=== PATIENT | female | born 1955 | race Caucasian/White ===

== ENCOUNTER 2020-08-14 07:32 | Outpatient (REF) | payer MEDICARE, SELFPAY ==
--- NOTE | 2020-08-14 07:52 | XR_ITS ---
EXAMINATION: XR SHOULDER, RIGHT CLINICAL INFORMATION: Pain COMPARISON: None TECHNIQUE: Two views of the right shoulder. FINDINGS: Bone alignment is normal. No fracture or dislocation is seen. The glenohumeral joint is normal. There is arthritis at the acromioclavicular joint. Soft tissues are unremarkable. XR/XR shoulder RT min 2V IMPRESSION: Arthritis at the acromioclavicular joint.
[2020-08-14 08:47] LABS: Cholesterol 196 mg/dL; HDL Cholesterol 66 mg/dL; LDL Cholesterol Calculated 111 mg/dl; Triglycerides 96 mg/dL
== END 2020-08-14 07:33 | disposition home or self-care (01) ==
LOC: HO.LAB 07:32
PROVIDERS: PCP Internal Medicine; Visit Provider Orthopaedic Surgery
DX: M75.41 Impingement syndrome of right shoulder (principal); M25.511 Pain in right shoulder; E78.5 Hyperlipidemia, unspecified
CPT/HCPCS: 73030; 80061; 99204

== ENCOUNTER 2020-09-18 11:49 | Outpatient (REF) | payer MEDICARE, SELFPAY ==
[2020-09-18 12:41] LABS: Basophils Absolute Auto 0.1 X10*3/uL (0.0-0.2); Basophils Percent Auto 0.2 % (0-2); Eosinophils Absolute Auto 0.2 X10*3/uL (0.0-0.4); Eosinophils Percent Auto 0.7 % (0-4); Hematocrit 44.3 % (37-47); Hemoglobin 14.4 g/dl (12.0-16.0); Imm Gran Abs Auto 0.03 X10*3/uL (0.00-0.03); Imm Gran Pct Auto 0.1 % (0.0-0.4); MANUAL DIFF FLAG SCAN; Mean Corpuscular HGB Conc 32.5 g/dl (31.0-35.0); Mean Corpuscular Hemoglobin 31.4 pg (27.0-33.0); Mean Corpuscular Volume 96.5 fL (80-98); Mean Platelet Volume 10.5 fL (9.4-12.3); Monocytes Absolute Auto 0.6 X10*3/uL (0.1-1.2); Monocytes Percent Auto 2.5 % (2-11); Neutrophils Absolute Auto 3.8 X10*3/uL (2.0-8.3); Neutrophils Percent Auto 17.5 % (45-73); Platelet Count 225 X10*3/uL (160-400); Red Blood Count 4.59 X10*6/uL (4.20-5.50); Red Cell Distribution Width 12.8 % (11.0-16.0); SCAN SMEAR FLAG 1; White Blood Count 21.9 X10*3/uL (4.8-10.8)
[2020-09-18 12:46] LABS: Lymphocytes Absolute Auto 17.3 X10*3/uL (1.2-4.9)
[2020-09-18 12:57] LABS: Alanine Aminotransferase 43 U/L (0-31); Albumin Level 4.6 g/dL (3.5-5.0); Alkaline Phosphatase 126 U/L (39-117); Anion Gap 13 (12-20); Aspartate Amino Transferase 26 U/L (5-31); Bilirubin Total 0.6 mg/dL (0.0-1.0); Blood Urea Nitrogen 15 mg/dL (9-16); Calcium 9.9 mg/dL (8.4-10.2); Carbon Dioxide 29 mmol/L (22-29); Chloride 102 mmol/L (96-108); Estimated Glomerular Filt Rate > 60; Glucose Random 133 mg/dL (60-115); Lactate Dehydrogenase 217 U/L (122-220); Potassium 3.9 mmol/l (3.3-5.1); Sodium 140 mmol/L (135-145); Total Protein 6.8 g/dL (6.5-8.0)
[2020-09-18 13:25] LABS: SLIDE REVIEW VERIFIED
[2020-09-18 13:28] LABS: Erythrocyte Sedimentation Rate 3 MM/HR (0-20)
[2020-09-18 14:35] LABS: Cholesterol 190 mg/dL; HDL Cholesterol 61 mg/dL; LDL Cholesterol Calculated 83 mg/dl; Triglycerides 230 mg/dL
== END 2020-09-18 11:50 | disposition home or self-care (01) ==
LOC: HO.LAB 11:49
PROVIDERS: PCP Internal Medicine; Visit Provider Internal Medicine Medical Oncology
DX: C91.10 Chronic lymphocytic leukemia of B-cell type not having achieved remission (principal)
CPT/HCPCS: 36415; 80053; 80061; 83615; 85025; 85652

== ENCOUNTER 2020-09-27 16:00 | Outpatient (RCR) | payer MEDICARE, SELFPAY ==
--- NOTE | 2020-08-21 15:10 | MHC.PT.OE ---
[facility] [place] Office [place] Office [place] Office [address] Ariana Centeno [address] [phone] F: [phone] F: [phone] F: [phone] F: [phone] Physical Therapy Evaluation Current Condition Diagnosis: RIGHT SHOULDER IMPINGEMENT Onset Date: 05/19/20 Date of Surgery: N/A Chief Complaint/ Current Level of Function: INSIDEOUS ONSET OF SHOULDER PAIN FROM MEDIAL DELTOID REGION TO MID BICEPS WHICH HAS BEEN PRESENT FOR APPROXIMATELY 3 MONTHS. SYMPTOMS ARE REPORTED VERY BAD IN THE MORNING AND STATES SHE FEELS A NEEDS TO HOLD AND SUPPORT ARM FOR ABOUT 1 HOUR PRIOR TO SYMPTOMS IMPROVING. PAIN IS DESCRIBED 'ACHE', PAIN WORSENS WITH ROTATIONAL TYPE MOVEMENTS AND LIFTING OBJECTS GREATER THAN 5#. NOTES INTERMITTENT P/N NEEDLES IN FINGERS. SHE REPORTS THAT SHE TENDS TO SLEEP ON RIGHT SIDE HABITUALLY. DOES NOT WAKE HER AT NIGHT. SHE RESIDES WITH HER WHO IS ABLE AND WILLING TO ASSIST. 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 Prior Level of Function/Occupation: NO HISTORY OF SIMILIAR SYMPTOMS Diagnostic Imaging: X-Ray [facility] [address] [place] [address] XRay Report Signed Patient: Lenora De Souza AMR#: [id number] : 3Acct:[id number] Age/Sex: 65 / FADM Date: 08/14/20 Loc: HO.LAB Attending Dr: Umu Gonzalez MD Ordering Physician: Umu Gonzalez MD Date of Service: 08/14/20 Procedure(s): XR shoulder RT min 2V Accession Number(s): [id number] cc: Umu Gonzalez MD~ EXAMINATION: XR SHOULDER, RIGHT CLINICAL INFORMATION: Pain COMPARISON: None TECHNIQUE: Two views of the right shoulder. FINDINGS: Bone alignment is normal. No fracture or dislocation is seen. The glenohumeral joint is normal. There is arthritis at the acromioclavicular joint. Soft tissues are unremarkable. XR/XR shoulder RT min 2V IMPRESSION: Arthritis at the acromioclavicular joint. Dictated By:DEBBIE BELLO MD Signed By:<Electronically signed by DEBBIE BELLO MD in OV>08/14/20 9021 DD/ 0752 TD/TT: Nutrition Associate: ANKUR Patient Goals and Expectations: TO 2ND PRESSMAN THE HAL LEON Past Medical History: CHRONIC LYMPHOMA LEFT TEMPORAL ARTERY BIOPSY Medications: IBUPROFEN Precautions/ Contraindications: NONE SPECIFIED Outcome Measure: Pain Pain Score: 7 Pain Scale Used: Numeric (0 - 10) Pain Location/ Description: LATERAL RIGHT SHOULDER Aggravating Factors: LIFTING, REACHING, PUSHING AND PULLING Alleviating Factors: REST, POSITIONING SLIGHTLY AWAY FROM BODY (GH NEUTRAL) Objective Findings Posture: Forward Head Rounded Shoulders Increased Thoracic Kyphosis ANTERIOR HUMERAL HEAD, INCREASED UPPER TRAP COMP Skin & Soft Tissue/ Palpation: TTP DELTOID BURSA TTP SUPROSPINATUS TENDON Gait/ Functional Mobility: DECREASED THORACIC ROTATION,, DECREASED ARM SWING AROM (PROM) Strength Cervical Spine Flexion: Extension: Lateral Flexion: Rotation: Cervical Comments: Flexion: Extension: Lateral Flexion: Rotation: Other: Shoulder Flexion: 0-170 Extension: 0-50 Abduction: 0-160 ER: 0-45 IR: WNLs Apley ER: Apley IR: Comments: Flexion: 4/5 W/ PAIN Extension: 5/5 Abduction: 4/5 W/ PAIN Adduction: NT ER: 4/5 IR: 4/5 Other: SUPRASPINATUS 4/5 WIH PAIN BICEPS/TRICEPS WNLs FOREARM AND HAND WFLs Elbow Flexion: Extension: Pronation: Supination: Comments: Flexion: Extension: Pronation: Supination: Wrist Flexion: Wrist Extension: Other: Lumbar Spine Flexion: Extension: Lateral Flexion: Rotation: Comments: Transverse abdominus: Extensors: Other: Hip Flexion: Extension: Abduction: Adduction: ER: IR: Comment: Flexion: Extension: Abduction: Adduction: ER: IR: Other: Knee Flexion: Extension: Comments: Patella Mobility: Flexion: Extension: Other: Ankle Dorsiflexion: Plantarflexion: Inversion: Eversion: Comments: Dorsiflexion: Plantarflexion: Inversion: Eversion: Comments: Tacho Assessment: Sacroiliac Assessment: Muscle Length: Special Tests: (+) NEERS (+) VALLEJO-KIKO (-) SPEEDS (-) AC COMPRESSION Vitals: BP: HR: O2SAT: RR: Other: Balance: Neurological Screen: Biceps DTR: EQUAL AND INTACT LEATHA Brachioradialis DTR: EQUAL AND INTACT LEATHA Triceps DTR: EQUAL AND INTACT LEATHA Patella DTR: Achilles DTR: Other: Dermatomes: UNREMARKABLE Sensation: EQUAL AND INTACT LEAHTA Myotomes: UNREMARKABLE Patient Education Primary Language Sierra Leonean 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 IMPAIRMENTS INCLUDE DECREASED STRENGTH OF ROTATOR CUFF AND DELTOIDS. DECREASED STRENGTH OF RHOMBOIDS, MID/LOW TRAPS, DECREASED SCAPULOTHORACIC MOBILITY, ALTERED POSTURE AND MUSCULAR LENGTH AND STRENGTH IMBALANCES FOSTERING A PATTERNED MOVEMENT STYLE. FUNCTIONAL LIMITATIONS INCLUDE DECREASED ABILITY TO PERFORM LIFTING GREATER THAN 5#, DECREASED ABILITY TO PERFORM PUSHING/PULLING AND REACHING, DECREASED ABILITY TO PERFORM HIGHER DEMAND HOMEMAKING AND WORK TASKS AND DISRUPTED SLEEP. SHE IS GOOD CANDIDATE FOR SKILLED THERAPY TO ADDRESS IMPAIRMENTS AND FUNCTIONAL LIMITATIONS AND RETURN TO PREVIOUS LEVEL OF FUNCTION. Rehabilitation Potential: Good Plan of Care Frequency and Duration 2X WEEK FOR 6 WEEKS Short Term Goals TO OBTAIN APPROPRIATE SEATED POSTURE TO REDUCE IMPINGEMENT, WITHOUT VERBAL CUING IN 2 WEEKS TO INITIATE HEP AND INDEPENDENT SELF MANAGEMENT OF SYMPTOMS IN 2 WEEKS Child Psychologist Goals TO DEMONSTRATE PLACING OBJECTS ON HIGH SHELF WITHOUT PAIN GREATER THAN 2/10 IN 5 WEEK TO REPORT RETURN TO ALL ADLs AND HOMEMAKING TASKS WITHOUT RESTRICTION IN 5 WEEKS TO REPORT SLEEPING AND AWAKING IN AM WITHOUT PAIN GREATER THAN 2/10 IN 6 WEEKS TO REPORT THE ABILITY TO LIFT AND CARRY GRANDCHILDREN WITHOUT RESTRICTION IN 6 WEEKS Treatment Plan Therapeutic Exercise Dynamic Therapeutic Activities Neuromuscular Re-ed Manual Therapies Joint Mobilization Taping Gait Home Exercise Program Patient Education Electrical Stimulation Iontophoresis Hot or Cold Pack Reviewed/ Agreed with Student Documentation: Therapist: Electronically signed by: WYATT BLAND PT, DPT Please sign and return to therapist. Thank you for your referral.
--- NOTE | 2020-10-23 14:43 | MHC.PT.DC ---
[facility] [place] Office [place] Office [place] Office [address] Ariana Centeno [address] [phone] F: [phone] F: [phone] F: [phone] F: [phone] Physical Therapy Discharge Report Diagnosis: RIGHT SHOULDER IMPINGEMENT Date of Surgery: N/A Date of Evaluation: 08/21/20 Date of Discharge: Treatments to Date: 10 Cancellations to Date: 3 No Shows to Date: 0 Discharge Status: Discharge Summary: Pt HAD BEEN PROGRESSING WELL WITH PT AND INDEPENDENT WITH HOME PROGRAM. SHE PHONED US STATING A CLOSE CONTACT TESTED POSITIVE FOR COVID AND SHE WAS SELF-QUARANTINING. Electronically signed by: WYATT BLAND PT, DPT Please sign and return to therapist. Thank you for your referral.
== END 2020-10-23 14:55 | disposition other institution (70) ==
LOC: HO.PT 16:00
PROVIDERS: Visit Provider Orthopaedic Surgery
DX: M75.41 Impingement syndrome of right shoulder (principal); R42 Dizziness and giddiness
CPT/HCPCS: 95992; 97110; 97140; 97150; 97161; 97530; 97535

== ENCOUNTER → 2020-10-30 14:31 | Outpatient (BNVA) | payer MEDICARE, SELFPAY | PROVIDERS: Visit Provider Orthopaedic Surgery | DX: M75.41 Impingement syndrome of right shoulder (principal) | CPT/HCPCS: 99212 ==

== ENCOUNTER 2020-11-23 06:39 | Outpatient (REF) | payer MEDICARE, SELFPAY ==
[2020-11-23 07:16] LABS: Basophils Absolute Auto 0.1 X10*3/uL (0.0-0.2); Basophils Percent Auto 0.3 % (0-2); Eosinophils Absolute Auto 0.2 X10*3/uL (0.0-0.4); Eosinophils Percent Auto 0.8 % (0-4); Hematocrit 47.1 % (37-47); Hemoglobin 15.2 g/dl (12.0-16.0); Imm Gran Abs Auto 0.04 X10*3/uL (0.00-0.03); Imm Gran Pct Auto 0.2 % (0.0-0.4); Lymphocytes Percent Auto 78.6 % (20-40); MANUAL DIFF FLAG SCAN; Mean Corpuscular HGB Conc 32.3 g/dl (31.0-35.0); Mean Corpuscular Volume 96.1 fL (80-98); Mean Platelet Volume 10.5 fL (9.4-12.3); Monocytes Absolute Auto 0.5 X10*3/uL (0.1-1.2); Monocytes Percent Auto 2.2 % (2-11); Neutrophils Absolute Auto 3.9 X10*3/uL (2.0-8.3); Neutrophils Percent Auto 17.9 % (45-73); Platelet Count 233 X10*3/uL (160-400); Red Cell Distribution Width 12.9 % (11.0-16.0); SCAN SMEAR FLAG 1; White Blood Count 21.9 X10*3/uL (4.8-10.8)
[2020-11-23 07:23] LABS: Lymphocytes Absolute Auto 17.2 X10*3/uL (1.2-4.9)
[2020-11-23 07:40] LABS: Alanine Aminotransferase 52 U/L (0-31); Albumin Level 4.6 g/dL (3.5-5.0); Alkaline Phosphatase 109 U/L (39-117); Anion Gap 14 (12-20); Aspartate Amino Transferase 30 U/L (5-31); Bilirubin Total 0.8 mg/dL (0.0-1.0); Blood Urea Nitrogen 19 mg/dL (9-16); Calcium 10.1 mg/dL (8.4-10.2); Carbon Dioxide 29 mmol/L (22-29); Chloride 102 mmol/L (96-108); Estimated Glomerular Filt Rate > 60; Glucose Random 130 mg/dL (60-115); Potassium 4.6 mmol/L (3.3-5.1); Sodium 140 mmol/L (135-145); Total Protein 6.9 g/dL (6.5-8.0)
[2020-11-23 07:42] LABS: Cholesterol 189 mg/dL; HDL Cholesterol 57 mg/dL; LDL Cholesterol Calculated 104 mg/dl; Triglycerides 144 mg/dL
[2020-11-23 07:43] LABS: SLIDE REVIEW VERIFIED
== END 2020-11-23 06:40 | disposition home or self-care (01) ==
LOC: HO.LAB 06:39
PROVIDERS: PCP Internal Medicine; Visit Provider Internal Medicine Medical Oncology
DX: E11.9 Type 2 diabetes mellitus without complications (principal); C91.10 Chronic lymphocytic leukemia of B-cell type not having achieved remission
CPT/HCPCS: 36415; 80053; 80061; 85025

== ENCOUNTER 2020-11-29 16:09 | Outpatient (REF) | payer MEDICARE, SELFPAY ==
--- NOTE | ~2020-11-29 | MM_ITS ---
EXAMINATION: MM SCREENING DIGITAL BREAST TOMOSYNTHESIS, BILATERAL CLINICAL INFORMATION: Screening. Asymptomatic. The lifetime risk of breast cancer based on the Tyrer-Cuzick Model is 4%. COMPARISON: Mammography: 08/26/2019, 08/19/2018, 08/11/2017 TECHNIQUE: Digital breast tomosynthesis is performed in both the craniocaudal and mediolateral oblique views along with computer-aided detection (CAD). Synthesized 2D images are generated from the tomosynthesis. Additional bilateral MLO views are provided. FINDINGS: There are scattered areas of fibroglandular density (ACR BI-RADS breast composition Category b). There are no significant masses, abnormal calcifications, or other abnormalities. There are scattered bilateral round, vascular, and ductal secretory calcifications again seen. The axilla and skin contours are unremarkable. MM/MM tomosynthesis screening BI IMPRESSION: No mammographic evidence of malignancy. ASSESSMENT: BI-RADS 2: Benign RECOMMENDATION: Routine annual mammography screening. This patient's information was entered into a reminder system with a target due date for their next mammogram.
== END 2020-11-29 16:10 | disposition home or self-care (01) ==
LOC: HO.MAMMO 16:09
PROVIDERS: PCP Internal Medicine; Visit Provider Internal Medicine
DX: Z12.31 Encounter for screening mammogram for malignant neoplasm of breast (principal)
CPT/HCPCS: 77063; 77067

== ENCOUNTER 2021-04-02 06:41 | Outpatient (REF) | payer MEDICARE, SELFPAY ==
[2021-04-02 07:18] LABS: Basophils Percent Auto 0.2 % (0-2); Eosinophils Absolute Auto 0.1 X10*3/uL (0.0-0.4); Eosinophils Percent Auto 0.6 % (0-4); Hematocrit 45.6 % (37-47); Hemoglobin 14.6 g/dl (12.0-16.0); Imm Gran Abs Auto 0.03 X10*3/uL (0.00-0.03); Imm Gran Pct Auto 0.1 % (0.0-0.4); Lymphocytes Absolute Auto 16.6 X10*3/uL (1.2-4.9); Lymphocytes Percent Auto 81.7 % (20-40); MANUAL DIFF FLAG SCAN; Mean Corpuscular Hemoglobin 30.8 pg (27.0-33.0); Mean Corpuscular Volume 96.2 fL (80-98); Mean Platelet Volume 10.3 fL (9.4-12.3); Monocytes Absolute Auto 0.6 X10*3/uL (0.1-1.2); Monocytes Percent Auto 2.8 % (2-11); Neutrophils Percent Auto 14.6 % (45-73); Platelet Count 203 X10*3/uL (160-400); Red Blood Count 4.74 X10*6/uL (4.20-5.50); Red Cell Distribution Width 13.7 % (11.0-16.0); SCAN SMEAR FLAG 1; White Blood Count 20.3 X10*3/uL (4.8-10.8)
[2021-04-02 07:42] LABS: Alanine Aminotransferase 50 U/L (0-31); Albumin Level 4.3 g/dL (3.5-5.0); Alkaline Phosphatase 113 U/L (39-117); Anion Gap 12 (12-20); Aspartate Amino Transferase 30 U/L (5-31); Bilirubin Total 0.8 mg/dL (0.0-1.0); Blood Urea Nitrogen 14 mg/dL (9-16); Calcium 9.9 mg/dL (8.4-10.2); Carbon Dioxide 30 mmol/L (22-29); Chloride 105 mmol/L (96-108); Cholesterol 174 mg/dL; Estimated Glomerular Filt Rate > 60; Glucose Fasting 121 mg/dL (60-99); HDL Cholesterol 53 mg/dL; LDL Cholesterol Calculated 93 mg/dl; Potassium 4.6 mmol/L (3.3-5.1); Sodium 142 mmol/L (135-145); Total Protein 6.3 g/dL (6.5-8.0); Triglycerides 142 mg/dL
[2021-04-02 08:29] LABS: SLIDE REVIEW VERIFIED
== END 2021-04-02 06:42 | disposition home or self-care (01) ==
LOC: HO.LAB 06:41
PROVIDERS: Absent Provider Internal Medicine; PCP Internal Medicine; Visit Provider Internal Medicine Medical Oncology
DX: C91.10 Chronic lymphocytic leukemia of B-cell type not having achieved remission (principal); E78.5 Hyperlipidemia, unspecified
CPT/HCPCS: 36415; 80053; 80061; 85025

== ENCOUNTER → 2021-05-23 14:54 | Outpatient (REF) | payer MEDICARE, SELFPAY ==
--- NOTE | 2021-05-23 15:07 | CA_ITS ---
Transthoracic Echocardiogram Patient (Last, First, Middle): Lenora De Souza A Gender: Female Date of : 1955 Age: 66 Procedure Date: 05/23/2021 Procedure Type: Transthoracic Echocardiogram Location: OP Height: 157.48 cm Weight: 72.12 kg BSA: 1.73 m2 Heart Rate: bpm BP: 130 / 85 mmHg Mechanical Design Engineer Products: [id number] Referring MD: Kathleen Hollis PRODUCT BLENDING SUPERVISOR Symptoms: I45.10 - Unspecified right bundle-branch block Study Quality: Fair ECG Rhythm: Sinus Conclusions: - The left ventricular systolic function is normal. The visually estimated ejection fraction is between 65-70%. - No obvious valvular pathology seen on this study. Findings Left Ventricle Normal left ventricular cavity size. There is normal left ventricular wall thickness. The left ventricular systolic function is normal. The visually estimated ejection fraction is between 65-70%. There is no evidence of regional wall motion abnormalities. Diastolic function is normal for age. Right Ventricle Normal right ventricular cavity size and systolic function. Atria Both atria are normal in size. Aortic Valve There is a normal trileaflet aortic valve. There is no aortic valve stenosis. There is trace (trivial) aortic valve regurgitation. Mitral Valve The mitral valve appears normal. There is trace mitral valve regurgitation. There is no mitral valve stenosis. Pulmonic Valve The pulmonic valve was not well visualized. Tricuspid Valve Normal tricuspid valve structure. There is trace tricuspid valve regurgitation. The pulmonary artery systolic pressure is normal. Great Vessels The asc aorta is normal in size. Venous The inferior vena cava is normal in size and collapses greater than 50% with inspiration. Pericardium/Pleural There is no evidence of pericardial effusion. Prior Study Comparison No prior study available for comparison. Recommendations, Care & Conclusions No obvious valvular pathology seen on this study. Measurements 2D Linear Measurements IVSd: 0.98 0.6-0.9/0.6-1.0 cm LVIDd: 4.10 3.9-5.3/4.2-5.9 cm LVIDd Index: 2.37 2.4-3.2/2.2-3.1 cm/m2 LVIDs: 2.35 2.0-3.6 cm LVPWd: 0.99 0.7-1.1 cm Ao Root: 3.30 2.1-3.5 cm LA Diam: 3.50 2.7-3.8/3.0-4.0 cm LAIDs Index: 2.02 1.5-2.3 cm/m2 LV Mass: 160.80 67-162/88-224 g LV Mass Index: 92.95 43-95/49-115 g/m2 LVOT Diam: 2.00 3.0+(-)1.3 cm 2D Systolic Function EF 4C: 57.30 >55% EF 2C: 70.50 >55% EF BiP: 63.90 >55% Mitral Valve MV Pk E: 0.52 MV PK A: 0.89 MV Decel Time: 249.00 E/A: 0.60 E'Lateral: 5.11 E'Medial: 4.57 E/E' Med: 11.40 E/E' Lat: 10.20 PHT: 73.00 MVA PHT: 3.01 Decel [place]: 2.09 Aortic Valve AoV Pk Ryder: 1.26 AoV Mn Ryder: 0.81 AoV VTI: 0.25 AoV Pk Grad: 6.00 Aov Mn Grad: 3.00 SELMA Cont.VTI: 2.85 LVOT LVOT Pk Ryder: 1.04 LVOT Mn Ryder: 0.66 LVOT VTI: 0.22 LVOT Pk Grad: 4.00 LVOT Mn Grad: 2.00 LVOT Diam: 2.00 LVOT Area: 3.14 Diastolic Function MV Pk E: 0.52 MV Pk A: 0.89 E/A: 0.60 E'Medial: 4.57 E/E' Med: 11.40 E' Laterial: 5.11 E/E' Lat: 10.20 Tricuspid Valve TR Pk Ryder: 2.02 TR Pk Grad: 16.00 Great Vessels Aorta Ao Root-2D: 3.30 2.0-3.7 cm Ao Asc: 3.20 2.1-3.4 cm Ao Arch: 2.40 Updated in Other Vendor System with Status of Final Reji Vizcarra MD electronically signed on 05/23/2021 4:29:33 PM with status of Final
== END ==
LOC: HO.CARD 14:54
PROVIDERS: Visit Provider Nurse Practitioner Family
DX: I45.10 Unspecified right bundle-branch block (principal)
CPT/HCPCS: 93306

== ENCOUNTER 2021-07-09 06:58 | Outpatient (REF) | payer MEDICARE, SELFPAY ==
[2021-07-09 09:19] LABS: Vitamin D 25-OH Total 42.3 ng/mL (>30)
== END 2021-07-09 06:59 | disposition home or self-care (01) ==
LOC: HO.LAB 06:58
PROVIDERS: Nurse Practitioner Family; PCP Internal Medicine; Visit Provider Internal Medicine Medical Oncology
DX: C91.10 Chronic lymphocytic leukemia of B-cell type not having achieved remission (principal); E66.9 Obesity, unspecified; I10 Essential (primary) hypertension
CPT/HCPCS: 36415; 82306; 84443

== ENCOUNTER 2021-07-12 06:38 | Outpatient (REF) | payer MEDICARE, SELFPAY ==
[2021-07-12 07:59] LABS: Basophils Absolute Auto 0.1 X10*3/uL (0.0-0.2); Basophils Percent Auto 0.2 % (0-2); Eosinophils Absolute Auto 0.2 X10*3/uL (0.0-0.4); Eosinophils Percent Auto 0.9 % (0-4); Hemoglobin 14.7 g/dl (12.0-16.0); Imm Gran Abs Auto 0.03 X10*3/uL (0.00-0.03); Imm Gran Pct Auto 0.1 % (0.0-0.4); Lymphocytes Percent Auto 79.1 % (20-40); MANUAL DIFF FLAG SCAN; Mean Corpuscular Hemoglobin 31.3 pg (27.0-33.0); Mean Corpuscular Volume 97.9 fL (80-98); Monocytes Absolute Auto 0.6 X10*3/uL (0.1-1.2); Monocytes Percent Auto 2.8 % (2-11); Neutrophils Absolute Auto 3.6 X10*3/uL (2.0-8.3); Neutrophils Percent Auto 16.9 % (45-73); Platelet Count 227 X10*3/uL (160-400); Red Cell Distribution Width 13.4 % (11.0-16.0); SCAN SMEAR FLAG 1; White Blood Count 21.5 X10*3/uL (4.8-10.8)
[2021-07-12 08:48] LABS: SLIDE REVIEW VERIFIED
== END 2021-07-12 06:39 | disposition home or self-care (01) ==
LOC: HO.LAB 06:38
PROVIDERS: PCP Internal Medicine; Visit Provider Internal Medicine Medical Oncology
DX: C91.10 Chronic lymphocytic leukemia of B-cell type not having achieved remission (principal)
CPT/HCPCS: 36415; 85025

== ENCOUNTER 2021-10-15 07:09 | Outpatient (REF) | payer MEDICARE, SELFPAY ==
[2021-10-15 08:07] LABS: Basophils Percent Auto 0.2 % (0-2); Eosinophils Absolute Auto 0.2 X10*3/uL (0.0-0.4); Eosinophils Percent Auto 0.9 % (0-4); Hematocrit 46.7 % (37.0-47.0); Imm Gran Abs Auto 0.02 X10*3/uL (0.00-0.03); Imm Gran Pct Auto 0.1 % (0.0-0.4); Lymphocytes Percent Auto 81.2 % (20-40); MANUAL DIFF FLAG SCAN; Mean Corpuscular HGB Conc 32.1 g/dl (31.0-35.0); Mean Corpuscular Hemoglobin 31.1 pg (27.0-33.0); Mean Corpuscular Volume 96.7 fL (80.0-98.0); Mean Platelet Volume 10.6 fL (9.4-12.3); Monocytes Absolute Auto 0.5 X10*3/uL (0.1-1.2); Monocytes Percent Auto 2.4 % (2-11); Neutrophils Percent Auto 15.2 % (45-73); Platelet Count 211 X10*3/uL (160-400); Red Blood Count 4.83 X10*6/uL (4.20-5.50); Red Cell Distribution Width 13.2 % (11.0-16.0); SCAN SMEAR FLAG 1
[2021-10-15 08:08] LABS: Lymphocytes Absolute Auto 16.2 X10*3/uL (1.2-4.9)
[2021-10-15 08:32] LABS: Alanine Aminotransferase 55 U/L (0-31); Albumin Level 4.3 g/dL (3.5-5.0); Alkaline Phosphatase 105 U/L (39-117); Anion Gap 10 (12-20); Aspartate Amino Transferase 33 U/L (5-31); Bilirubin Total 0.7 mg/dL (0.0-1.0); Blood Urea Nitrogen 14 mg/dL (9-16); Calcium 10.1 mg/dL (8.4-10.2); Carbon Dioxide 30 mmol/L (22-29); Chloride 107 mmol/L (96-108); Cholesterol 196 mg/dL; Estimated Glomerular Filt Rate > 60; Glucose Fasting 125 mg/dL (60-99); HDL Cholesterol 54 mg/dL; LDL Cholesterol Calculated 110 mg/dl; Lactate Dehydrogenase 222 U/L (122-220); Potassium 4.7 mmol/L (3.3-5.1); Sodium 142 mmol/L (135-145); Total Protein 6.5 g/dL (6.5-8.0); Triglycerides 161 mg/dL
[2021-10-15 08:50] LABS: SLIDE REVIEW VERIFIED
== END 2021-10-15 07:10 | disposition home or self-care (01) ==
LOC: HO.LAB 07:09
PROVIDERS: PCP Internal Medicine; Visit Provider Internal Medicine Medical Oncology
DX: C91.10 Chronic lymphocytic leukemia of B-cell type not having achieved remission (principal); I10 Essential (primary) hypertension; E11.9 Type 2 diabetes mellitus without complications
CPT/HCPCS: 36415; 80053; 80061; 83615; 85025

== ENCOUNTER 2021-12-03 14:53 | Outpatient (REF) | payer MEDICARE, SELFPAY ==
--- NOTE | ~2021-12-03 | MM_ITS ---
EXAMINATION: MM SCREENING DIGITAL BREAST TOMOSYNTHESIS, BILATERAL CLINICAL INFORMATION: Screening. Asymptomatic. The lifetime risk of breast cancer based on the Tyrer-Cuzick Model is 4%. COMPARISON: Mammography: 11/29/2020, 08/26/2019, 08/19/2018 TECHNIQUE: Digital breast tomosynthesis is performed in both the craniocaudal and mediolateral oblique views along with computer-aided detection (CAD). Synthesized 2D images are generated from the tomosynthesis. Additional right MLO view is provided. FINDINGS: There are scattered areas of fibroglandular density (ACR BI-RADS breast composition Category b). There are no significant masses, abnormal calcifications, or other abnormalities. Parenchymal pattern is similar to prior studies. There is no developing density or architectural abnormality. The axilla and skin contours are unremarkable. No significant changes. MM/MM tomosynthesis screening BI IMPRESSION: No mammographic evidence of malignancy. ASSESSMENT: BI-RADS 1: Negative RECOMMENDATION: Routine annual mammography screening. This patient's information was entered into a reminder system with a target due date for their next mammogram.
--- NOTE | ~2021-12-03 | MM_ITS ---
EXAMINATION: BONE DENSITOMETRY CLINICAL INDICATION: Asymptomatic menopausal state. COMPARISON: This is the patient's baseline examination. TECHNIQUE: Using a Philo DXA System (software version: 13.1) manufactured by [email or web address], dual-energy x-ray absorptiometry was performed of the lumbar spine and left hip. The images are of good technical quality. Summary results are attached. FINDINGS: AP SPINE L1-L4: BMD 0.850 g/cm2, Z-score -1.4, T-score -2.7, osteoporosis. LEFT FEMUR, NECK: BMD 0.790 g/cm2, Z-score -0.3, T-score -1.8, osteopenia. LEFT FEMUR, TOTAL: BMD 0.873 g/cm2, Z-score 0.1, T-score -1.1, osteopenia. IDENTIFIED RISK FACTORS: Menopause, thiazide. HISTORY OF FRACTURE: None listed. MEDICATIONS: Calcium supplements or multivitamin, vitamin D. MM/XR DEXA axial skeleton IMPRESSION: 1. DIAGNOSIS: Osteoporosis based on the lowest T-score value of -2.7 in the lumbar spine applying World Health Organization criteria. 2. 10-YEAR FRACTURE RISK PREDICTION, FRAX: According to the guidelines, FRAX calculation should only be performed on patients in the osteopenia bone density category. Therefore, FRAX was not performed on this patient. 3. Treatment Recommendations: NOF guidelines recommend consideration for treatment in postmenopausal women and men age 50 and older presenting with the following: -A hip or vertebral (clinical or morphometric) fracture. -T-score less than or equal to -2.5 at the femoral neck or spine after appropriate evaluation to exclude secondary causes. -Low bone mass at the hip or spine and a 10-year fracture probability by FRAX of greater than or equal to 3% for hip fracture or greater than or equal to 20% for major osteoporotic fracture based on the [place] adapted WHO algorithm. 4. Other Recommendations: All treatment decisions require clinical judgment and consideration of individual patient factors, including patient preferences, comorbidities, previous drug use, risk factors not captured in the FRAX model (e.g. frailty, falls, vitamin D deficiency, increased bone turnover, interval significant decline in bone density) and possible under or overestimation of fracture risk by FRAX. Additional medical evaluation for secondary cause of low bone mineral density may be appropriate. FUTURE SCAN RECOMMENDATION: People with diagnosed cases of osteoporosis or at high risk for fracture should have regular bone mineral density tests. For patients eligible for Medicare, routine testing is allowed once every 2 years. The testing frequency can be increased to one year for patients who have rapidly progressing disease, those who are receiving or discontinuing medical therapy to restore bone mass, or have additional risk factors.
== END 2021-12-03 14:54 | disposition home or self-care (01) ==
LOC: HO.MAMMO 14:53
PROVIDERS: Visit Provider Nurse Practitioner Family
DX: Z12.31 Encounter for screening mammogram for malignant neoplasm of breast (principal); Z13.820 Encounter for screening for osteoporosis; M81.0 Age-related osteoporosis without current pathological fracture; Z78.0 Asymptomatic menopausal state; Z79.899 Other long term (current) drug therapy
CPT/HCPCS: 77063; 77067; 77080

== ENCOUNTER 2022-01-10 07:26 | Outpatient (REF) | payer MEDICARE, SELFPAY ==
[2022-01-10 08:08] LABS: Basophils Absolute Auto 0.1 X10*3/uL (0.0-0.2); Basophils Percent Auto 0.2 % (0-2); Eosinophils Absolute Auto 0.1 X10*3/uL (0.0-0.4); Eosinophils Percent Auto 0.4 % (0-4); Hematocrit 48.2 % (37.0-47.0); Hemoglobin 15.2 g/dl (12.0-16.0); Imm Gran Abs Auto 0.03 X10*3/uL (0.00-0.03); Imm Gran Pct Auto 0.1 % (0.0-0.4); Lymphocytes Absolute Auto 16.9 X10*3/uL (1.2-4.9); Lymphocytes Percent Auto 80.8 % (20-40); MANUAL DIFF FLAG SCAN; Mean Corpuscular HGB Conc 31.5 g/dl (31.0-35.0); Mean Corpuscular Hemoglobin 30.6 pg (27.0-33.0); Mean Corpuscular Volume 97.2 fL (80.0-98.0); Mean Platelet Volume 9.9 fL (9.4-12.3); Monocytes Absolute Auto 0.5 X10*3/uL (0.1-1.2); Monocytes Percent Auto 2.4 % (2-11); Neutrophils Absolute Auto 3.3 x10*3/uL (2.0-8.3); Neutrophils Percent Auto 16.1 % (45-73); Platelet Count 257 X10*3/uL (160-400); Red Blood Count 4.96 X10*6/uL (4.20-5.50); Red Cell Distribution Width 13.2 % (11.0-16.0); SCAN SMEAR FLAG 1
[2022-01-10 08:43] LABS: Lactate Dehydrogenase 243 U/L (122-220)
[2022-01-10 08:45] LABS: Erythrocyte Sedimentation Rate 2 MM/HR (0-20)
[2022-01-10 08:55] LABS: SLIDE REVIEW VERIFIED
== END 2022-01-10 07:27 | disposition home or self-care (01) ==
LOC: HO.LAB 07:26
PROVIDERS: PCP Internal Medicine; Visit Provider Internal Medicine Medical Oncology
DX: C91.10 Chronic lymphocytic leukemia of B-cell type not having achieved remission (principal)
CPT/HCPCS: 36415; 83615; 85025; 85652

== ENCOUNTER 2022-03-18 10:59 | Outpatient (REF) | payer MEDICARE, SELFPAY ==
--- NOTE | ~2022-03-18 | XR_ITS ---
EXAMINATION: XR CHEST CLINICAL INFORMATION: Cough. COMPARISON: 07/22/2018 chest radiograph. TECHNIQUE: 2 views of the chest were obtained. FINDINGS: No significant abnormality is noted involving the heart, lungs, mediastinum, bony thorax or soft tissues. XR/XR chest 2V IMPRESSION: No acute cardiopulmonary process.
== END 2022-03-18 11:00 | disposition home or self-care (01) ==
LOC: HO.HMGCX 10:59
PROVIDERS: Visit Provider Physician Assistant
DX: R05.9 Cough, unspecified (principal)
CPT/HCPCS: 71046

== ENCOUNTER 2022-04-18 07:15 | Outpatient (REF) | payer MEDICARE, SELFPAY ==
[2022-04-18 08:13] LABS: Basophils Percent Auto 0.2 % (0-2); Eosinophils Absolute Auto 0.1 X10*3/uL (0.0-0.4); Eosinophils Percent Auto 0.5 % (0-4); Hematocrit 45.4 % (37.0-47.0); Hemoglobin 14.9 g/dl (12.0-16.0); Imm Gran Abs Auto 0.02 X10*3/uL (0.00-0.03); Imm Gran Pct Auto 0.1 % (0.0-0.4); Lymphocytes Percent Auto 84.9 % (20-40); MANUAL DIFF FLAG SCAN; Mean Corpuscular HGB Conc 32.8 g/dl (31.0-35.0); Mean Corpuscular Hemoglobin 31.6 pg (27.0-33.0); Mean Corpuscular Volume 96.4 fL (80.0-98.0); Mean Platelet Volume 10.7 fL (9.4-12.3); Monocytes Absolute Auto 0.5 X10*3/uL (0.1-1.2); Monocytes Percent Auto 2.6 % (2-11); Neutrophils Absolute Auto 2.2 x10*3/uL (2.0-8.3); Neutrophils Percent Auto 11.7 % (45-73); Platelet Count 193 X10*3/uL (160-400); Red Blood Count 4.71 X10*6/uL (4.20-5.50); Red Cell Distribution Width 13.2 % (11.0-16.0); SCAN SMEAR FLAG 1; White Blood Count 18.7 X10*3/uL (4.8-10.8)
[2022-04-18 08:14] LABS: Lymphocytes Absolute Auto 15.8 X10*3/uL (1.2-4.9)
[2022-04-18 08:36] LABS: Alanine Aminotransferase 42 U/L (0-31); Albumin Level 4.5 g/dL (3.5-5.0); Alkaline Phosphatase 102 U/L (39-117); Anion Gap 11 (12-20); Aspartate Amino Transferase 29 U/L (5-31); Bilirubin Total 0.6 mg/dL (0.0-1.0); Blood Urea Nitrogen 21 mg/dL (9-16); Calcium 9.7 mg/dL (8.4-10.2); Carbon Dioxide 27 mmol/L (22-29); Chloride 106 mmol/L (96-108); Cholesterol 163 mg/dL; Estimated Glomerular Filt Rate > 60; Glucose Fasting 120 mg/dL (60-99); HDL Cholesterol 51 mg/dL; LDL Cholesterol Calculated 96 mg/dl; Potassium 4.2 mmol/L (3.3-5.1); Sodium 140 mmol/L (135-145); Total Protein 6.5 g/dL (6.5-8.0); Triglycerides 82 mg/dL
[2022-04-18 08:49] LABS: SLIDE REVIEW VERIFIED
[2022-04-18 09:04] LABS: Estimated Average Glucose 126 mg/dL
[2022-04-18 10:21] LABS: Microalbum/Creatinine Ratio Ur 14.1 ug/mg cr
== END 2022-04-18 07:16 | disposition home or self-care (01) ==
LOC: HO.LAB 07:15
PROVIDERS: PCP Internal Medicine; Visit Provider Internal Medicine Medical Oncology
DX: C91.10 Chronic lymphocytic leukemia of B-cell type not having achieved remission (principal); E78.5 Hyperlipidemia, unspecified; E66.9 Obesity, unspecified; E11.9 Type 2 diabetes mellitus without complications
CPT/HCPCS: 36415; 80053; 80061; 82043; 83036; 85025

== ENCOUNTER → 2022-05-13 14:41 | Outpatient (BNVA) | payer MEDICARE, SELFPAY | PROVIDERS: PCP Internal Medicine; Visit Provider Internal Medicine Endocrinology, Diabetes & Metabolism | DX: M81.0 Age-related osteoporosis without current pathological fracture (principal) | CPT/HCPCS: 99202 ==

== ENCOUNTER 2022-07-25 14:48 | Outpatient (REF) | payer MEDICARE, SELFPAY ==
--- NOTE | ~2022-07-25 | XR_ITS ---
EXAMINATION: XR LUMBOSACRAL SPINE CLINICAL INFORMATION: Dorsalgia COMPARISON: CT abdomen pelvis 07/30/2018 TECHNIQUE: Three views of the lumbosacral spine. FINDINGS: 5 nonrib-bearing lumbar vertebral bodies are visualized. Alignment is within normal limits. Lumbar vertebral body heights and disc spaces are well-maintained. Mild degenerative changes of the posterior elements of the lower lumbar spine. Sacroiliac joints are symmetric. Small calcifications within the pelvis are likely vascular in nature. XR/XR lumbar spine 2-3V IMPRESSION: Mild degenerative changes of the lower lumbar spine.
== END 2022-07-25 14:49 | disposition home or self-care (01) ==
LOC: HO.XRAY 14:48
PROVIDERS: PCP Internal Medicine; Visit Provider Internal Medicine
DX: M54.9 Dorsalgia, unspecified (principal)
CPT/HCPCS: 72100

== ENCOUNTER 2022-09-05 07:03 | Outpatient (REF) | payer MEDICARE, SELFPAY ==
[2022-09-05 07:40] LABS: Basophils Absolute Auto 0.1 X10*3/uL (0.0-0.2); Basophils Percent Auto 0.2 % (0-2); Eosinophils Absolute Auto 0.1 X10*3/uL (0.0-0.4); Eosinophils Percent Auto 0.6 % (0-4); Hematocrit 47.2 % (37.0-47.0); Hemoglobin 15.2 g/dl (12.0-16.0); Imm Gran Abs Auto 0.03 X10*3/uL (0.00-0.03); Imm Gran Pct Auto 0.1 % (0.0-0.4); Lymphocytes Percent Auto 83.1 % (20-40); MANUAL DIFF FLAG SCAN; Mean Corpuscular HGB Conc 32.2 g/dl (31.0-35.0); Mean Corpuscular Hemoglobin 31.4 pg (27.0-33.0); Mean Corpuscular Volume 97.5 fL (80.0-98.0); Mean Platelet Volume 10.7 fL (9.4-12.3); Monocytes Absolute Auto 0.5 X10*3/uL (0.1-1.2); Monocytes Percent Auto 2.4 % (2-11); NRBC Pct Auto 0.1 /100WBC (0.0-0.2); Neutrophils Absolute Auto 3.1 x10*3/uL (2.0-8.3); Neutrophils Percent Auto 13.6 % (45-73); Platelet Count 217 X10*3/uL (160-400); Red Blood Count 4.84 X10*6/uL (4.20-5.50); Red Cell Distribution Width 13.2 % (11.0-16.0); SCAN SMEAR FLAG 1; White Blood Count 22.5 X10*3/uL (4.8-10.8)
[2022-09-05 07:44] LABS: Lymphocytes Absolute Auto 18.7 X10*3/uL (1.2-4.9)
[2022-09-05 08:17] LABS: Cholesterol 198 mg/dL; HDL Cholesterol 60 mg/dL; LDL Cholesterol Calculated 121 mg/dl; Phosphorus 3.7 mg/dL (2.7-4.5); Triglycerides 89 mg/dL
[2022-09-05 08:51] LABS: SLIDE REVIEW VERIFIED
[2022-09-05 11:30] LABS: Vitamin D 25-OH Total 54.7 ng/mL (>30)
[2022-09-06 23:12] LABS: Prot Elec - Albumin 4.6 g/dL (3.8-4.8); Prot Elec - Alpha1 0.2 g/dL (0.2-0.3); Prot Elec - Alpha2 0.6 g/dL (0.5-0.9); Prot Elec - Beta 1 0.5 g/dL (0.4-0.6); Prot Elec - Beta 2 0.3 g/dL (0.2-0.5); Prot Elec - Gamma 0.6 g/dL (0.8-1.7); Prot Elec - Total Protein 6.8 g/dL (6.1-8.1)
== END 2022-09-05 07:04 | disposition home or self-care (01) ==
LOC: HO.LAB 07:03
PROVIDERS: Absent Provider Internal Medicine Medical Oncology; PCP Internal Medicine; Visit Provider Internal Medicine Endocrinology, Diabetes & Metabolism
DX: M81.0 Age-related osteoporosis without current pathological fracture (principal); C91.10 Chronic lymphocytic leukemia of B-cell type not having achieved remission
CPT/HCPCS: 36415; 80061; 82306; 84100; 84165; 85025

== ENCOUNTER 2022-09-06 08:57 | Outpatient (REF) | payer MEDICARE, SELFPAY ==
[2022-09-06 10:50] LABS: Creatinine, mg/dL 55.79
[2022-09-06 12:04] LABS: Creatinine, 24Hr Urine 0.8 G/Day (1.0-2.0); Total Volume 24 Hour Urine 1425 mL
[2022-09-09 17:23] LABS: Calcium, 24 Hr Urine 150 mg/24 h; Calcium/Creatinine Ratio 184 mg/g creat (30-275); Creatinine 24Hr Urine 0.81 g/24 h (0.50-2.15)
== END 2022-09-06 08:58 | disposition home or self-care (01) ==
LOC: HO.LNP 08:57
PROVIDERS: Visit Provider Internal Medicine Endocrinology, Diabetes & Metabolism
DX: M81.0 Age-related osteoporosis without current pathological fracture (principal)
CPT/HCPCS: 82340; 82570

== ENCOUNTER 2022-09-12 08:27 | Outpatient (REF) | payer MEDICARE, SELFPAY | END 2022-09-12 08:28 | disposition home or self-care (01) | LOC: HO.LAB 08:27 | PROVIDERS: PCP Internal Medicine; Visit Provider Internal Medicine Endocrinology, Diabetes & Metabolism | DX: M81.0 Age-related osteoporosis without current pathological fracture (principal) | CPT/HCPCS: 86335 ==

== ENCOUNTER → 2022-09-16 13:58 | Outpatient (BNVA) | payer MEDICARE, SELFPAY | PROVIDERS: PCP Internal Medicine; Visit Provider Internal Medicine Endocrinology, Diabetes & Metabolism | DX: M81.0 Age-related osteoporosis without current pathological fracture (principal) | CPT/HCPCS: 99212 ==

== ENCOUNTER 2022-12-09 13:40 | Outpatient (REF) | payer MEDICARE, SELFPAY ==
--- NOTE | ~2022-12-09 | MM_ITS ---
EXAMINATION: MM SCREENING DIGITAL BREAST TOMOSYNTHESIS, BILATERAL CLINICAL INFORMATION: Screening. Asymptomatic. The lifetime risk of breast cancer based on the Tyrer-Cuzick Model is 7.7%. COMPARISON: Mammography: December 03, 2021 and studies dating back to July 21, 2016 TECHNIQUE: Digital breast tomosynthesis is performed in both the craniocaudal and mediolateral oblique views along with computer-aided detection (CAD). Synthesized 2D images are generated from the tomosynthesis. FINDINGS: There are scattered areas of fibroglandular density (ACR BI-RADS breast composition Category b). There are no significant masses, abnormal calcifications, or other abnormalities. MM/MM tomosynthesis screening BI IMPRESSION: No significant changes ASSESSMENT: BI-RADS 1: Negative RECOMMENDATION: Routine annual mammography screening. This patient's information was entered into a reminder system with a target due date for their next mammogram.
== END 2022-12-09 13:41 | disposition home or self-care (01) ==
LOC: HO.MAMMO 13:40
PROVIDERS: PCP Internal Medicine; Visit Provider Internal Medicine
DX: Z12.31 Encounter for screening mammogram for malignant neoplasm of breast (principal)
CPT/HCPCS: 77063; 77067

== ENCOUNTER 2023-01-02 08:03 | Outpatient (REF) | payer MEDICARE, SELFPAY ==
[2023-01-02 08:56] LABS: Basophils Absolute Auto 0.1 X10*3/uL (0.0-0.2); Basophils Percent Auto 0.3 % (0-2); Eosinophils Absolute Auto 0.4 X10*3/uL (0.0-0.4); Eosinophils Percent Auto 1.5 % (0-4); Hematocrit 46.7 % (37.0-47.0); Hemoglobin 15.1 g/dl (12.0-16.0); Imm Gran Abs Auto 0.04 X10*3/uL (0.00-0.03); Imm Gran Pct Auto 0.2 % (0.0-0.4); Lymphocytes Percent Auto 81.4 % (20-40); MANUAL DIFF FLAG SCAN; Mean Corpuscular HGB Conc 32.3 g/dl (31.0-35.0); Mean Corpuscular Hemoglobin 30.9 pg (27.0-33.0); Mean Corpuscular Volume 95.5 fL (80.0-98.0); Mean Platelet Volume 10.6 fL (9.4-12.3); Monocytes Absolute Auto 0.6 X10*3/uL (0.1-1.2); Monocytes Percent Auto 2.3 % (2-11); Neutrophils Absolute Auto 3.5 x10*3/uL (2.0-8.3); Neutrophils Percent Auto 14.3 % (45-73); Platelet Count 226 X10*3/uL (160-400); Red Blood Count 4.89 X10*6/uL (4.20-5.50); Red Cell Distribution Width 13.7 % (11.0-16.0); SCAN SMEAR FLAG 1
[2023-01-02 08:58] LABS: Lymphocytes Absolute Auto 19.6 X10*3/uL (1.2-4.9)
[2023-01-02 09:41] LABS: Alanine Aminotransferase 44 U/L (0-31); Albumin Level 4.6 g/dL (3.5-5.0); Alkaline Phosphatase 103 U/L (39-117); Anion Gap 12 (12-20); Aspartate Amino Transferase 32 U/L (5-31); Bilirubin Total 0.9 mg/dL (0.0-1.0); Blood Urea Nitrogen 23 mg/dL (9-16); Calcium 9.6 mg/dL (8.4-10.2); Carbon Dioxide 28 mmol/L (22-29); Chloride 103 mmol/L (96-108); Estimated Glomerular Filt Rate > 60; Glucose Random 126 mg/dL (60-115); Potassium 4.4 mmol/L (3.3-5.1); Sodium 139 mmol/L (135-145); Total Protein 6.6 g/dL (6.5-8.0)
[2023-01-02 10:25] LABS: SLIDE REVIEW VERIFIED
== END 2023-01-02 08:04 | disposition home or self-care (01) ==
LOC: HO.LAB 08:03
PROVIDERS: PCP Internal Medicine; Visit Provider Internal Medicine Medical Oncology
DX: C91.10 Chronic lymphocytic leukemia of B-cell type not having achieved remission (principal)
CPT/HCPCS: 36415; 80053; 85025

== ENCOUNTER → 2023-03-13 08:51 | Outpatient (BNVA) | payer MEDICARE, SELFPAY | PROVIDERS: PCP Internal Medicine; Visit Provider Internal Medicine Endocrinology, Diabetes & Metabolism | DX: M81.0 Age-related osteoporosis without current pathological fracture (principal) | CPT/HCPCS: 99212 ==

== ENCOUNTER 2023-05-04 08:33 | Outpatient (REF) | payer MEDICARE, SELFPAY ==
[2023-05-04 09:07] LABS: Basophils Absolute Auto 0.1 X10*3/uL (0.0-0.2); Basophils Percent Auto 0.3 % (0-2); Eosinophils Absolute Auto 0.1 X10*3/uL (0.0-0.4); Eosinophils Percent Auto 0.4 % (0-4); Hematocrit 45.4 % (37.0-47.0); Hemoglobin 14.7 g/dl (12.0-16.0); Imm Gran Abs Auto 0.04 X10*3/uL (0.00-0.03); Imm Gran Pct Auto 0.2 % (0.0-0.4); Lymphocytes Percent Auto 83.6 % (20-40); MANUAL DIFF FLAG SCAN; Mean Corpuscular HGB Conc 32.4 g/dl (31.0-35.0); Mean Corpuscular Hemoglobin 30.8 pg (27.0-33.0); Mean Platelet Volume 10.1 fL (9.4-12.3); Monocytes Absolute Auto 0.5 X10*3/uL (0.1-1.2); Monocytes Percent Auto 2.4 % (2-11); Neutrophils Absolute Auto 2.9 x10*3/uL (2.0-8.3); Neutrophils Percent Auto 13.1 % (45-73); Platelet Count 208 X10*3/uL (160-400); Red Blood Count 4.78 X10*6/uL (4.20-5.50); Red Cell Distribution Width 13.3 % (11.0-16.0); SCAN SMEAR FLAG 1; White Blood Count 22.1 X10*3/uL (4.8-10.8)
[2023-05-04 09:08] LABS: Lymphocytes Absolute Auto 18.5 X10*3/uL (1.2-4.9)
[2023-05-04 09:45] LABS: Alanine Aminotransferase 34 U/L (0-31); Albumin Level 4.3 g/dL (3.5-5.0); Alkaline Phosphatase 91 U/L (39-117); Anion Gap 12 (12-20); Aspartate Amino Transferase 25 U/L (5-31); Bilirubin Total 0.9 mg/dL (0.0-1.0); Blood Urea Nitrogen 17 mg/dL (9-16); Calcium 9.5 mg/dL (8.4-10.2); Carbon Dioxide 27 mmol/L (22-29); Chloride 104 mmol/L (96-108); Estimated Glomerular Filt Rate > 60; Glucose Random 126 mg/dL (60-115); Lactate Dehydrogenase 203 U/L (122-220); Potassium 3.9 mmol/L (3.3-5.1); Sodium 139 mmol/L (135-145); Total Protein 6.8 g/dL (6.5-8.0)
[2023-05-04 10:18] LABS: SLIDE REVIEW VERIFIED
== END 2023-05-04 08:34 | disposition home or self-care (01) ==
LOC: HO.LAB 08:33
PROVIDERS: PCP Internal Medicine; Visit Provider Internal Medicine Medical Oncology
DX: C91.10 Chronic lymphocytic leukemia of B-cell type not having achieved remission (principal)
CPT/HCPCS: 36415; 80053; 83615; 85025

== ENCOUNTER 2023-09-07 07:47 | Outpatient (REF) | payer MEDICARE, SELFPAY ==
[2023-09-07 08:14] LABS: Basophils Percent Auto 0.2 % (0-2); Eosinophils Absolute Auto 0.1 X10*3/uL (0.0-0.4); Eosinophils Percent Auto 0.5 % (0-4); Hematocrit 46.5 % (37.0-47.0); Imm Gran Abs Auto 0.04 X10*3/uL (0.00-0.03); Imm Gran Pct Auto 0.2 % (0.0-0.4); Lymphocytes Percent Auto 81.1 % (20-40); MANUAL DIFF FLAG SCAN; Mean Corpuscular HGB Conc 32.3 g/dl (31.0-35.0); Mean Corpuscular Hemoglobin 31.2 pg (27.0-33.0); Mean Corpuscular Volume 96.7 fL (80.0-98.0); Mean Platelet Volume 10.7 fL (9.4-12.3); Monocytes Absolute Auto 0.6 X10*3/uL (0.1-1.2); Monocytes Percent Auto 2.5 % (2-11); Neutrophils Absolute Auto 3.5 x10*3/uL (2.0-8.3); Neutrophils Percent Auto 15.5 % (45-73); Platelet Count 197 X10*3/uL (160-400); Red Blood Count 4.81 X10*6/uL (4.20-5.50); Red Cell Distribution Width 13.2 % (11.0-16.0); SCAN SMEAR FLAG 1; White Blood Count 22.3 X10*3/uL (4.8-10.8)
[2023-09-07 08:15] LABS: Lymphocytes Absolute Auto 18.1 X10*3/uL (1.2-4.9)
[2023-09-07 08:26] LABS: Estimated Average Glucose 126 mg/dL
[2023-09-07 08:32] LABS: SLIDE REVIEW VERIFIED
[2023-09-07 08:49] LABS: Alanine Aminotransferase 43 U/L (0-31); Albumin Level 4.3 g/dL (3.5-5.0); Alkaline Phosphatase 76 U/L (39-117); Anion Gap 11 (12-20); Aspartate Amino Transferase 29 U/L (5-31); Bilirubin Total 0.8 mg/dL (0.0-1.0); Blood Urea Nitrogen 16 mg/dL (9-16); Carbon Dioxide 29 mmol/L (22-29); Chloride 104 mmol/L (96-108); Cholesterol 175 mg/dL (<200); Estimated Glomerular Filt Rate > 60; Glucose Fasting 118 mg/dL (60-99); HDL Cholesterol 51 mg/dL (>40); LDL Cholesterol Calculated 99 mg/dL (<100); Potassium 4.1 mmol/L (3.3-5.1); Sodium 140 mmol/L (135-145); Total Protein 6.7 g/dL (6.5-8.0); Triglycerides 129 mg/dL (<150)
== END 2023-09-07 07:48 | disposition home or self-care (01) ==
LOC: HO.LAB 07:47
PROVIDERS: PCP Internal Medicine; Referring Provider Internal Medicine Medical Oncology; Visit Provider Internal Medicine
DX: R73.9 Hyperglycemia, unspecified (principal); E78.5 Hyperlipidemia, unspecified; N28.9 Disorder of kidney and ureter, unspecified; E03.9 Hypothyroidism, unspecified; C91.10 Chronic lymphocytic leukemia of B-cell type not having achieved remission; D64.9 Anemia, unspecified
CPT/HCPCS: 36415; 80053; 80061; 83036; 84443; 85025

== ENCOUNTER 2023-10-01 11:32 | Outpatient (AMB) | payer MEDICARE, SELFPAY ==
[2023-10-01 11:33] VITALS: BP 128/80; PULSE 67; O2SAT 98
--- NOTE | 2023-10-01 11:33 | MHC.PC.OV ---
Vital Signs 10/01/23 11:33 Height 5 ft 1.25 in Weight 160 lb BMI 30.0 BP 128/80 Blood Pressure Location Lt brachial Position Sitting Pulse 67 Pulse Source Pulse Oximeter Pulse Oximetry (%) 98 Oxygen Delivery Method Room Air Intake Visit Reasons: 6 month follow up Eye Clinic Manager Required: No Plant Inspector: Not Required per policy Accompanied by: Self / Same As Patient Allergies epinephrine [From Epifrin] Allergy (Intermediate, Verified 10/01/23 11:33) tacycardia procaine [From NOVOCAIN] Allergy (Unknown, Verified 10/01/23 11:33) TACHYCARDIA FROM NOVOCAINE Medication List - Last Reconciled 10/01/23 by Raji Slade MD alendronate 70 mg PO QWEEK aspirin 81 mg PO DAILY calcium carbonate (Calcium) 600 mg PO DAILY cholecalciferol (vitamin D3) 50 mcg PO DAILY hydrochlorothiazide 12.5 mg PO DAILY 90 days multivitamin (Daily Multi-Vitamin tablet) 1 tab PO DAILY simvastatin 20 mg PO DAILY Tobacco use date assessed: 01/23/23 Fall risk assessment: No Falls in past year Last assessed Fall Risk: 10/01/23 Dental Screening Dental Screen Date: 10/01/23 Did you have a dental visit in the last 12 months?: Yes Did you have a dental problem in the last 6 months where you did not have access to dental care?: No Was dental information given to patient?: Patient has dentist HPI 6 month follow up HPI Details HTN hyperlip and osteoporosis; doing well o rx PFSH Medical History Incomplete right bundle branch block (RBBB) Post-menopausal Hypertension Vertigo Osteoarthritis of hands, bilateral Lymphoma Surgical History History of surgery History of colonoscopy History of bone marrow biopsy (~2016) Bilateral cataracts (~2018) History of tonsillectomy (~1953) Family History Father Liver cancer Hypertension Mother Ovarian cancer Sister Mental health disorder Social History Household Members: Significant Other Household Members Other:: Osmar Housing: House Alcohol intake: never Patient Tobacco Use Status: Never used Tobacco e-Cigarette/Vaping Use: Never Used Second Hand Smoke Exposure: No service: No Current occupational status: employed 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 Godfrey Perry, Kim Ga, Gino Duckworth and colleagues, with an educational conchis from [employer]. Review of Systems Const Denies chills, Denies headache(s) and Denies weight loss ENT Denies headache(s) Card Denies chest pain, Denies syncope, Denies irregular heart rhythm and Denies dyspnea Resp Denies chest congestion, Denies cough and Denies dyspnea GI Denies abdominal pain, Denies change in stool character, Denies nausea and Denies vomiting Musc Denies deformity and Denies joint swelling Neuro Denies syncope and Denies headache(s) Physical exam (Primary Care) Vital Signs: Last Vital Signs Pulse 67 10/01/23 11:33 BP 128/80 10/01/23 11:33 Pulse Ox 98 10/01/23 11:33 Oxygen Delivery Method Room Air 10/01/23 11:33 BMI result Body Mass Index 30.0 Tobacco/Smoking Status: Tobacco use Status Tobacco use date assessed 01/23/23 10/01/23 11:35 Patient Tobacco Use Status Never used Tobacco 10/01/23 11:35 e-Cigarette/Vaping Use Never Used 10/01/23 11:35 Thrive Assessment: Date of Thrive Assessment Date Thrive assessed 12/17/22 10/01/23 11:35 Const General: cooperative, comfortable, no acute distress and alert Neck Neck: Yes no lymphadenopathy Thyroid: Thyroid normal Resp Effort & Inspection: normal respiratory effort Auscultation: clear to auscultation bilaterally Percussion: percussion normal Cardio Jugular venous distension: no JVD Palpation: normal PMI Rate: regular rate Rhythm: regular rhythm Heart sounds: S1 normal heart sound present and S2 normal heart sound present GI Inspection: Yes normal to inspection Palpation (GI): No hepatosplenomegaly present Skin General skin exam: no rashes or lesions noted Extrem General: Yes no clubbing, cyanosis or edema Assessment and Plan Assessment & Plan (1) Osteoporosis: Code(s): M81.0 - Age-related osteoporosis without current pathological fracture Plan: stable; same rx (2) Hypertension: Code(s): I10 - Essential (primary) hypertension Qualifiers: Hypertension type: unspecified Qualified Code(s): I10 - Essential (primary) hypertension Plan: stable; same rx (3) Hyperlipidemia: Code(s): E78.5 - Hyperlipidemia, unspecified Qualifiers: Hyperlipidemia type: unspecified Qualified Code(s): E78.5 - Hyperlipidemia, unspecified Plan: stable; same rx Medications: New azithromycin take 500 mg today (day 1), then 250 mg for 4 days (days 2-5) PO 6 tabs 0RF azithromycin take 500 mg today (day 1), then 250 mg for 4 days (days 2-5) PO 6 tabs 0RF Coding Level of Care Code Est Pt Level 4 (58058) Diagnoses Osteoporosis M81.0 Hypertension, unspecified type I10 Hypertension type: unspecified Hyperlipidemia, unspecified hyperlipidemia type E78.5 Hyperlipidemia type: unspecified
== END 2023-10-01 12:09 | disposition home or self-care (01) ==
PROVIDERS: PCP Internal Medicine; Visit Provider Internal Medicine
DX: M81.0 Age-related osteoporosis without current pathological fracture (principal); I10 Essential (primary) hypertension; E78.5 Hyperlipidemia, unspecified
CPT/HCPCS: 99214

== ENCOUNTER 2023-12-15 13:24 | Outpatient (REF) | payer MEDICARE, SELFPAY | END 2023-12-15 13:25 | disposition home or self-care (01) | LOC: HO.MAMMO 13:24 | PROVIDERS: PCP Internal Medicine; Visit Provider Internal Medicine | DX: Z12.31 Encounter for screening mammogram for malignant neoplasm of breast (principal) | CPT/HCPCS: 77063; 77067 ==

== ENCOUNTER → 2023-12-15 13:30 | Outpatient (BNV) | payer MEDICARE, SELFPAY | PROVIDERS: PCP Internal Medicine; Visit Provider Radiology Diagnostic Radiology | DX: Z12.31 Encounter for screening mammogram for malignant neoplasm of breast (principal) | CPT/HCPCS: 77063; 77067 ==

== ENCOUNTER 2024-01-04 08:01 | Outpatient (REF) | payer MEDICARE, SELFPAY ==
[2024-01-04 08:33] LABS: Basophils Absolute Auto 0.1 X10*3/uL (0.0-0.2); Basophils Percent Auto 0.3 % (0-2); Eosinophils Absolute Auto 0.1 X10*3/uL (0.0-0.4); Eosinophils Percent Auto 0.5 % (0-4); Hematocrit 46.7 % (37.0-47.0); Hemoglobin 15.6 g/dl (12.0-16.0); Imm Gran Abs Auto 0.03 X10*3/uL (0.00-0.03); Imm Gran Pct Auto 0.1 % (0.0-0.4); Lymphocytes Percent Auto 85.3 % (20-40); MANUAL DIFF FLAG SCAN; Mean Corpuscular HGB Conc 33.4 g/dl (31.0-35.0); Mean Corpuscular Hemoglobin 32.2 pg (27.0-33.0); Mean Corpuscular Volume 96.5 fL (80.0-98.0); Mean Platelet Volume 10.6 fL (9.4-12.3); Monocytes Absolute Auto 0.5 X10*3/uL (0.1-1.2); Neutrophils Absolute Auto 2.8 x10*3/uL (2.0-8.3); Neutrophils Percent Auto 11.8 % (45-73); Platelet Count 230 X10*3/uL (160-400); Red Blood Count 4.84 X10*6/uL (4.20-5.50); Red Cell Distribution Width 13.4 % (11.0-16.0); SCAN SMEAR FLAG 1; White Blood Count 23.4 X10*3/uL (4.8-10.8)
[2024-01-04 08:55] LABS: SLIDE REVIEW VERIFIED
[2024-01-04 08:58] LABS: Alanine Aminotransferase 38 U/L (0-31); Albumin Level 4.4 g/dL (3.5-5.0); Alkaline Phosphatase 91 U/L (39-117); Anion Gap 14 (12-20); Aspartate Amino Transferase 31 U/L (5-31); Bilirubin Total 0.7 mg/dL (0.0-1.0); Blood Urea Nitrogen 22 mg/dL (9-16); Calcium 9.7 mg/dL (8.4-10.2); Carbon Dioxide 28 mmol/L (22-29); Chloride 104 mmol/L (96-108); Cholesterol 194 mg/dL (<200); Estimated Glomerular Filt Rate > 60; Glucose Fasting 138 mg/dL (60-99); HDL Cholesterol 61 mg/dL (>40); LDL Cholesterol Calculated 113 mg/dL (<100); Sodium 142 mmol/L (135-145); Triglycerides 104 mg/dL (<150)
== END 2024-01-04 08:02 | disposition home or self-care (01) ==
LOC: HO.LAB 08:01
PROVIDERS: PCP Internal Medicine; Visit Provider Internal Medicine Medical Oncology
DX: C91.10 Chronic lymphocytic leukemia of B-cell type not having achieved remission (principal); E78.5 Hyperlipidemia, unspecified; I10 Essential (primary) hypertension
CPT/HCPCS: 36415; 80053; 80061; 85025

== ENCOUNTER 2024-03-09 09:10 | Outpatient (AMB) | payer MEDICARE, SELFPAY ==
--- NOTE | 2024-03-09 09:13 | MHC.OFFVIS ---
Vital Signs 03/09/24 09:14 Height 5 ft 1.25 in Weight 167 lb 8.821 oz BMI 31.4 BP 156/64 H Blood Pressure Location Lt brachial Position Sitting Pulse 74 Pulse Source Pulse Oximeter Intake Visit Reasons: f/u osteoporosis-confirmed Intake Note: Patient present today for Osteoporosis follow up visit. 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 Required: No Accompanied by: Self / Same As Patient Allergies epinephrine [From Epifrin] Allergy (Intermediate, Verified 03/09/24 09:19) tacycardia procaine [From NOVOCAIN] Allergy (Unknown, Verified 03/09/24 09:19) TACHYCARDIA FROM NOVOCAINE Medication List - Last Reconciled 03/09/24 by Godfrey Samuels MD alendronate 70 mg PO QWEEK aspirin 81 mg PO DAILY azithromycin take 500 mg today (day 1), then 250 mg for 4 days (days 2-5) PO azithromycin take 500 mg today (day 1), then 250 mg for 4 days (days 2-5) PO calcium carbonate (Calcium 600) 600 mg PO DAILY cholecalciferol (vitamin D3) 50 mcg PO DAILY hydrochlorothiazide 12.5 mg PO DAILY 90 days multivitamin (Daily Multi-Vitamin tablet) 1 tab PO DAILY simvastatin 20 mg PO DAILY HPI Comments Details: 69 YO F with PMHx CLL is seen in consultation at the request of PCP for Osteoporosis. First diagnosed in 11/20/2021. No history of pathologic fracture or ONJ. Has 3 servings of dietary calcium per day in the form of milk, broccoli . Takes Calcium supplement 600 mg mg daily in divided doses. Takes 2000 IU of Vitamin D daily. Denies ever using PPI, anticoagulant, antiepileptic or glucocorticoid medication. Does weight bearing exercise lifts grandchildren 2 X/ per week Fracture history: N Height loss: N [employer] history: nl Denies history of Kidney stones: + family history of Osteoporosis in sister but no hip fracture. UTD on dental cleanings and sees dentist every 6 months. No planned upcoming dental work or extractions. DXA dated 12/03/21 : FINDINGS: AP SPINE L1-L4: BMD 0.850 g/cm2, Z-score -1.4, T-score -2.7, osteoporosis. LEFT FEMUR, NECK: BMD 0.790 g/cm2, Z-score -0.3, T-score -1.8, osteopenia. LEFT FEMUR, TOTAL: BMD 0.873 g/cm2, Z-score 0.1, T-score -1.1, osteopenia. Labs: Secondary workup negative. Currently on alendronate 70 mg q.week for 2 yrs [facility] Medical History Incomplete right bundle branch block (RBBB) Post-menopausal Hypertension Vertigo Osteoarthritis of hands, bilateral Lymphoma Surgical History History of surgery History of colonoscopy History of bone marrow biopsy (~2016) Bilateral cataracts (~2018) History of tonsillectomy (~1953) Family History Father Liver cancer Hypertension Mother Ovarian cancer Sister Mental health disorder Social History Household Members: Significant Other Household Members Other:: Osmar Housing: House Alcohol intake: never Patient Tobacco Use Status: Never used Tobacco e-Cigarette/Vaping Use: Never Used Second Hand Smoke Exposure: No service: No Current occupational status: employed 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 secondary causes have been ruled out. Currently on alendronate 70 mg Q The plan is to continue the alendronate. Will repeat DEXA and urine NTX. Depending upon above may consider drug holiday Orders: Orders XR DEXA axial skeleton Today M81.0 - Age-related osteoporosis without current pathological fracture Collagen Crosslinks NTX Today M81.0 - Age-related osteoporosis without current pathological fracture Coding Level of Care Code Est Pt Level 3 (68473) Diagnoses Osteoporosis M81.0
[2024-03-09 09:14] VITALS: BP 156/64; PULSE 74; BMI 31.4
== END 2024-03-09 09:44 | disposition home or self-care (01) ==
PROVIDERS: PCP Internal Medicine; Visit Provider Internal Medicine Endocrinology, Diabetes & Metabolism
DX: M81.0 Age-related osteoporosis without current pathological fracture (principal)
CPT/HCPCS: 99213

== ENCOUNTER → 2024-03-09 09:10 | Outpatient (BNVA) | payer MEDICARE, SELFPAY | PROVIDERS: Visit Provider Internal Medicine Endocrinology, Diabetes & Metabolism | DX: M81.0 Age-related osteoporosis without current pathological fracture (principal); Z79.83 Long term (current) use of bisphosphonates | CPT/HCPCS: 99212 ==

== ENCOUNTER 2024-04-06 08:55 | Outpatient (REF) | payer MEDICARE, SELFPAY ==
--- NOTE | ~2024-04-06 | MM_ITS ---
EXAMINATION: BONE DENSITOMETRY CLINICAL INDICATION: Age-related osteoporosis without current pathological fracture. COMPARISON: Baseline BD dated 12/03/2021. TECHNIQUE: Using a Brightcove DXA System (software version: 13.1) manufactured by [employer], dual-energy x-ray absorptiometry was performed of the lumbar spine and left hip. The images are of good technical quality. Summary results are attached. FINDINGS: AP SPINE L1-L4: Current: BMD 0.915 g/cm2, Z-score -0.8, T-score -2.2, osteopenia, 7.6% increase from baseline (<5% change is not significant). Baseline: BMD 0.850 g/cm2. LEFT FEMUR, NECK: Current: BMD 0.773 g/cm2, Z-score -0.4, T-score -1.9, osteopenia. Baseline: BMD 0.790 g/cm2. LEFT FEMUR, TOTAL: Current: BMD 0.946 g/cm2, Z-score 0.8, T-score -0.5, normal, 8.4% increase from baseline (<5% change is not significant). Baseline: BMD 0.873 g/cm2. IDENTIFIED RISK FACTORS: Osteoporosis. Thiazide. Menopause. HISTORY OF FRACTURE: None listed. MEDICATIONS: Calcium supplement and/or multivitamin. Vitamin D. Bisphosphonates. MM/XR DEXA axial skeleton IMPRESSION: 1. DIAGNOSIS: Osteopenia based on the lowest T-score value of -2.2 in the lumbar spine applying World Health Organization criteria. 2. 10-YEAR FRACTURE RISK PREDICTION, FRAX: Not performed in this patient on estrogen or bone building treatments. 3. Treatment Recommendations: NOF guidelines recommend consideration for treatment in postmenopausal women and men age 50 and older presenting with the following: -A hip or vertebral (clinical or morphometric) fracture. -T-score less than or equal to -2.5 at the femoral neck or spine after appropriate evaluation to exclude secondary causes. -Low bone mass at the hip or spine and a 10-year fracture probability by FRAX of greater than or equal to 3% for hip fracture or greater than or equal to 20% for major osteoporotic fracture based on the [place] adapted WHO algorithm. 4. Other Recommendations: All treatment decisions require clinical judgment and consideration of individual patient factors, including patient preferences, comorbidities, previous drug use, risk factors not captured in the FRAX model (e.g. frailty, falls, vitamin D deficiency, increased bone turnover, interval significant decline in bone density) and possible under or overestimation of fracture risk by FRAX. Additional medical evaluation for secondary cause of low bone mineral density may be appropriate. FUTURE SCAN RECOMMENDATION: People with diagnosed cases of osteoporosis or at high risk for fracture should have regular bone mineral density tests. For patients eligible for Medicare, routine testing is allowed once every 2 years. The testing frequency can be increased to one year for patients who have rapidly progressing disease, those who are receiving or discontinuing medical therapy to restore bone mass, or have additional risk factors.
== END 2024-04-06 08:56 | disposition home or self-care (01) ==
LOC: HO.MAMMO 08:55
PROVIDERS: PCP Internal Medicine; Visit Provider Internal Medicine Endocrinology, Diabetes & Metabolism
DX: M81.0 Age-related osteoporosis without current pathological fracture (principal); Z78.0 Asymptomatic menopausal state
CPT/HCPCS: 77080

== ENCOUNTER 2024-04-06 11:09 | Outpatient (AMB) | payer MEDICARE, SELFPAY ==
[2024-04-06 11:15] VITALS: BP 132/80; PULSE 90; O2SAT 96; BMI 31.5
--- NOTE | 2024-04-06 11:15 | A.OFFPC_ITS ---
Vital Signs 04/06/24 11:15 Height 5 ft 1.25 in Weight 168 lb BMI 31.5 BP 132/80 Blood Pressure Location Lt brachial Position Sitting Pulse 90 Pulse Source Pulse Oximeter Pulse Oximetry (%) 96 Oxygen Delivery Method Room Air Intake Visit Reasons: 6 month f/u Compliance Paralegal Required: No Hospice Registered Nurse: Not Required per policy Accompanied by: Self / Same As Patient Allergies epinephrine [From Epifrin] Allergy (Intermediate, Verified 04/06/24 11:16) tacycardia procaine [From NOVOCAIN] Allergy (Unknown, Verified 04/06/24 11:16) TACHYCARDIA FROM NOVOCAINE Medication List - Last Reconciled 04/07/24 by Raji Slade MD alendronate 70 mg PO QWEEK aspirin 81 mg PO DAILY calcium carbonate (Calcium 600) 600 mg PO DAILY cholecalciferol (vitamin D3) 50 mcg PO DAILY hydrochlorothiazide 12.5 mg PO DAILY 90 days multivitamin (Daily Multi-Vitamin tablet) 1 tab PO DAILY simvastatin 20 mg PO DAILY Tobacco use date assessed: 04/06/24 Fall risk assessment: No Falls in past year Last assessed Fall Risk: 04/06/24 Dental Screening Dental Screen Date: 04/06/24 Did you have a dental visit in the last 12 months?: Yes Did you have a dental problem in the last 6 months where you did not have access to dental care?: No Was dental information given to patient?: Patient has dentist HPI 6 month f/u HPI Details hyperlipidemia on rx; doing well and compliant [facility] Medical History Incomplete right bundle branch block (RBBB) Post-menopausal Hypertension Vertigo Osteoarthritis of hands, bilateral Lymphoma Surgical History History of surgery History of colonoscopy History of bone marrow biopsy (~2016) Bilateral cataracts (~2018) History of tonsillectomy (~1953) Family History Father Liver cancer Hypertension Mother Ovarian cancer Sister Mental health disorder Social History Household Members: Significant Other Household Members Other:: Osmar Housing: House Alcohol intake: never Patient Tobacco Use Status: Never used Tobacco e-Cigarette/Vaping Use: Never Used Second Hand Smoke Exposure: No service: No Current occupational status: employed 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 1. Little interest or pleasure in doing things: not at all 2. Feeling down, depressed, or hopeless: not at all 3. Trouble falling or staying asleep, or sleeping too much: not at all 4. Feeling tired or having little energy: not at all 5. Poor appetite or overeating: not at all 6. Feeling bad about yourself - or that you are a failure or have let yourself or your family down: not at all 7. Trouble concentrating on things, such as reading the newspaper or watching television: not at all 8. Moving or speaking so slowly that other people could have noticed. Or the opposite - being so fidgety or restless that you have been moving around a lot more than usual: not at all 9. Thoughts that you would be better off or of hurting yourself in some way: not at all Total score: 0 Depression Screening Interpretation: Negative Depression Screening Done: Yes 40626 - PHQ-9 Billing: Yes Source: Developed by Drs. Godfrey Perry, Kim Ga, Gino Duckworth and colleagues, with an educational conchis from [employer]. Thrive Questionnaire Date Thrive assessed: 04/06/24 I am a: Patient What is your living situation today?: I have a steady place to live Within the past 12 months, did the food you bought not last and you didn't have the money to get more?: Never true Within the past 12 months, did you worry whether your food would run out before you got money to buy more?: Never true Do you have trouble paying for medicines?: No Do you have trouble getting transportation to medical appointments?: No Do you have trouble paying your heating and electricity bill?: No Do you have trouble taking care of your child, family member or friend?: No Do you have trouble with day-to-day activities such as bathing, preparing meals, shopping, managing finances, etc.?: No Are you currently unemployed and looking for a job?: No Are you interested in more education?: No Please select the resources that you would like help with: None THRIVE Score: 0 AUDIT C Alcohol Use Questionnaire (AUDIT-C) 1. How often do you have a drink containing alcohol?: Never 3. How often do you have six or more drinks on one occasion?: Never Total Score: 0 Score Reviewed/Action Taken: Yes CARTER-7 AMB Questionnaire CARTER-7 Date CARTER - 7 assessed: 04/06/24 Feeling nervous, anxious, or on edge: 0 = Not at all Not being able to stop or control worryin = Not at all Worrying too much about different things: 0 = Not at all Trouble relaxin = Not at all Being so restless that it is hard to sit still: 0 = Not at all Becoming easily annoyed or irritable: 0 = Not at all Feeling afraid as if something awful might happen: 0 = Not at all Total CARTER-7 score (0-4 normal; 5-9 mild; 10-14 moderate; 15-21 severe): 0 Source: Developed by Drs. Godfrey Perry, Kim Ga, Gino Duckworth and colleagues, with an educational conchis from [employer]. Review of Systems Const Denies chills, Denies headache(s) and Denies weight loss ENT Denies headache(s) Card Denies chest pain, Denies syncope, Denies irregular heart rhythm and Denies dyspnea Resp Denies chest congestion, Denies cough and Denies dyspnea GI Denies abdominal pain, Denies change in stool character, Denies nausea and Denies vomiting Musc Denies deformity and Denies joint swelling Neuro Denies syncope and Denies headache(s) Physical exam (Primary Care) Vital Signs: Last Vital Signs Pulse 90 04/06/24 11:15 BP 132/80 04/06/24 11:15 Pulse Ox 96 04/06/24 11:15 Oxygen Delivery Method Room Air 04/06/24 11:15 BMI result Body Mass Index 31.5 Tobacco/Smoking Status: Tobacco use Status Tobacco use date assessed 04/06/24 04/06/24 11:17 Patient Tobacco Use Status Never used Tobacco 04/06/24 11:17 e-Cigarette/Vaping Use Never Used 04/06/24 11:17 PHQ-9: PHQ-9 Score PHQ-9: Total score 0 04/06/24 11:17 Depression Screening Interpretation: Negative Thrive Assessment: Date of Thrive Assessment Date Thrive assessed 04/06/24 04/06/24 11:17 Const General: cooperative, comfortable, no acute distress and alert Neck Neck: Yes no lymphadenopathy Thyroid: Thyroid normal Resp Effort & Inspection: normal respiratory effort Auscultation: clear to auscultation bilaterally Percussion: percussion normal Cardio Jugular venous distension: no JVD Palpation: normal PMI Rate: regular rate Rhythm: regular rhythm Heart sounds: S1 normal heart sound present and S2 normal heart sound present GI Inspection: Yes normal to inspection Palpation (GI): No hepatosplenomegaly present Skin General skin exam: no rashes or lesions noted Extrem General: Yes no clubbing, cyanosis or edema Assessment and Plan Assessment & Plan (1) Hyperlipidemia: Code(s): E78.5 - Hyperlipidemia, unspecified Qualifiers: Hyperlipidemia type: unspecified Qualified Code(s): E78.5 - Hyperlipidemia, unspecified Plan: stable; same rx Orders: Orders Lipid Panel Today Z13.220 - Encounter for screening for lipoid disorders Complete Blood Count Auto Diff Today Z13.0 - Encounter for screening for diseases of the blood and blood-forming organs and certain disorders involving the immune mechanism Comprehensive [place]. Panel Fast Today Z13.9 - Encounter for screening, unspecified Thyroid Stimulating Hormone Today Z13.29 - Encounter for screening for other suspected endocrine disorder Coding Level of Care Code Est Pt Level 3 (27569) Diagnoses Hyperlipidemia, unspecified hyperlipidemia type E78.5 Hyperlipidemia type: unspecified
== END 2024-04-06 11:39 | disposition home or self-care (01) ==
PROVIDERS: PCP Internal Medicine; Visit Provider Internal Medicine
DX: E78.5 Hyperlipidemia, unspecified (principal)
CPT/HCPCS: 99213

== ENCOUNTER 2024-04-18 10:13 | Outpatient (REF) | payer MEDICARE, SELFPAY ==
[2024-04-22 20:22] LABS: N-Telopeptide 19 (see note); NTXCreaRU 173 mg/dL (20-275)
== END 2024-04-18 10:14 | disposition home or self-care (01) ==
LOC: HO.LNP 10:13
PROVIDERS: Visit Provider Internal Medicine Endocrinology, Diabetes & Metabolism
DX: M81.0 Age-related osteoporosis without current pathological fracture (principal)
CPT/HCPCS: 82523

== ENCOUNTER 2024-08-05 07:51 | Outpatient (REF) | payer MEDICARE, SELFPAY ==
[2024-08-05 08:44] LABS: Basophils Absolute Auto 0.1 X10*3/uL (0.0-0.2); Basophils Percent Auto 0.2 % (0-2); Eosinophils Absolute Auto 0.1 X10*3/uL (0.0-0.4); Eosinophils Percent Auto 0.5 % (0-4); Hematocrit 46.6 % (37.0-47.0); Hemoglobin 15.1 g/dl (12.0-16.0); Imm Gran Abs Auto 0.04 X10*3/uL (0.00-0.03); Imm Gran Pct Auto 0.2 % (0.0-0.4); Lymphocytes Absolute Auto 20.6 X10*3/uL (1.2-4.9); Lymphocytes Percent Auto 84.3 % (20-40); MANUAL DIFF FLAG SCAN; Mean Corpuscular HGB Conc 32.4 g/dl (31.0-35.0); Mean Corpuscular Hemoglobin 31.5 pg (27.0-33.0); Mean Corpuscular Volume 97.1 fL (80.0-98.0); Mean Platelet Volume 10.4 fL (9.4-12.3); Monocytes Absolute Auto 0.5 X10*3/uL (0.1-1.2); Monocytes Percent Auto 2.2 % (2-11); Neutrophils Absolute Auto 3.1 x10*3/uL (2.0-8.3); Neutrophils Percent Auto 12.6 % (45-73); Platelet Count 205 X10*3/uL (160-400); Red Cell Distribution Width 13.1 % (11.0-16.0); SCAN SMEAR FLAG 1; White Blood Count 24.4 X10*3/uL (4.8-10.8)
[2024-08-05 09:02] LABS: SLIDE REVIEW VERIFIED
[2024-08-05 09:26] LABS: Alanine Aminotransferase 59 U/L (0-31); Albumin Level 4.5 g/dL (3.5-5.0); Alkaline Phosphatase 85 U/L (39-117); Anion Gap 12 (12-20); Aspartate Amino Transferase 36 U/L (5-31); Bilirubin Total 0.9 mg/dL (0.0-1.0); Blood Urea Nitrogen 15 mg/dL (9-16); Calcium 9.6 mg/dL (8.4-10.2); Carbon Dioxide 29 mmol/L (22-29); Chloride 103 mmol/L (96-108); Cholesterol 181 mg/dL (<200); Estimated Glomerular Filt Rate > 60; Glucose Fasting 142 mg/dL (60-99); HDL Cholesterol 57 mg/dL (>40); LDL Cholesterol Calculated 97 mg/dL (<100); Potassium 4.2 mmol/L (3.3-5.1); Sodium 140 mmol/L (135-145); Total Protein 6.6 g/dL (6.5-8.0); Triglycerides 139 mg/dL (<150)
[2024-08-05 09:28] LABS: Thyroid Stimulating Hormone 2.02 uIU/mL (0.32-4.0)
== END 2024-08-05 07:52 | disposition home or self-care (01) ==
LOC: HO.LAB 07:51
PROVIDERS: PCP Internal Medicine; Visit Provider Internal Medicine
DX: Z13.220 Encounter for screening for lipoid disorders (principal); Z13.0 Encounter for screening for diseases of the blood and blood-forming organs and certain disorders involving the immune mechanism; Z13.29 Encounter for screening for other suspected endocrine disorder
CPT/HCPCS: 36415; 80053; 80061; 84443; 85025

== ENCOUNTER 2024-08-08 08:58 | Outpatient (AMB) | payer MEDICARE, SELFPAY ==
[2024-08-08 08:59] VITALS: BP 144/82; PULSE 60; O2SAT 97; BMI 31.9
--- NOTE | 2024-08-08 08:59 | MHC.PC.OV ---
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 Accompanied by: Self / Same As Patient Allergies epinephrine [From Epifrin] Allergy (Intermediate, Verified 08/08/24 08:59) tacycardia procaine [From NOVOCAIN] Allergy (Unknown, Verified 08/08/24 08:59) TACHYCARDIA FROM NOVOCAINE Medication List - Last Reconciled 08/09/24 by Raji Slade MD aspirin 81 mg PO DAILY calcium carbonate (Calcium 600) 600 mg PO DAILY cholecalciferol (vitamin D3) 50 mcg PO DAILY hydrochlorothiazide 12.5 mg PO DAILY 90 days multivitamin (Daily Multi-Vitamin tablet) 1 tab PO DAILY simvastatin 20 mg PO DAILY Tobacco use date assessed: 04/06/24 Fall risk assessment: No Falls in past year Last assessed Fall Risk: 08/08/24 Dental Screening Dental Screen Date: 04/06/24 HPI PE - see comments HPI Details hypertension hyperlipidemia and PTST; stable [facility] Medical History Incomplete right bundle branch block (RBBB) Post-menopausal Hypertension Vertigo Osteoarthritis of hands, bilateral Lymphoma Surgical History History of surgery History of colonoscopy History of bone marrow biopsy (~2016) Bilateral cataracts (~2018) History of tonsillectomy (~1953) Family History Father Liver cancer Hypertension Mother Ovarian cancer Sister Mental health disorder Social History Household Members: Significant Other Household Members Other:: Osmar Housing: House Alcohol intake: never Patient Tobacco Use Status: Never used Tobacco Tobacco use type: Cigarette e-Cigarette/Vaping Use: Never Used Second Hand Smoke Exposure: No service: No Current occupational status: employed 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 1. Little interest or pleasure in doing things: not at all 2. Feeling down, depressed, or hopeless: not at all 3. Trouble falling or staying asleep, or sleeping too much: not at all 4. Feeling tired or having little energy: not at all 5. Poor appetite or overeating: not at all 6. Feeling bad about yourself - or that you are a failure or have let yourself or your family down: not at all 7. Trouble concentrating on things, such as reading the newspaper or watching television: not at all 8. Moving or speaking so slowly that other people could have noticed. Or the opposite - being so fidgety or restless that you have been moving around a lot more than usual: not at all 9. Thoughts that you would be better off or of hurting yourself in some way: not at all Total score: 0 Source: Developed by Drs. Godfrey Perry, Kim Ga, Gino Duckworth and colleagues, with an educational conchis from [employer]. Thrive Questionnaire Date Thrive assessed: 04/06/24 I am a: Patient What is your living situation today?: I choose not to answer this question Within the past 12 months, did the food you bought not last and you didn't have the money to get more?: Never true Within the past 12 months, did you worry whether your food would run out before you got money to buy more?: Never true Do you have trouble paying for medicines?: No Do you have trouble getting transportation to medical appointments?: No Do you have trouble paying your heating and electricity bill?: No Do you have trouble taking care of your child, family member or friend?: No Do you have trouble with day-to-day activities such as bathing, preparing meals, shopping, managing finances, etc.?: No Are you currently unemployed and looking for a job?: No Are you interested in more education?: No Please select the resources that you would like help with: None Currently or been in a relationship where the following occur: I choose not to answer THRIVE Score: 0 AUDIT C Alcohol Use Questionnaire (AUDIT-C) 1. How often do you have a drink containing alcohol?: Never 2. How many drinks containing alcohol do you have on a typical day when you are drinking?: 1 or 2 3. How often do you have six or more drinks on one occasion?: Never Total Score: 0 CARTER-7 AMB Questionnaire CARTER-7 Date CARTER - 7 assessed: 04/06/24 Feeling nervous, anxious, or on edge: 1 = Several days Not being able to stop or control worryin = Several days Worrying too much about different things: 1 = Several days Trouble relaxin = Not at all Being so restless that it is hard to sit still: 0 = Not at all Becoming easily annoyed or irritable: 0 = Not at all Feeling afraid as if something awful might happen: 0 = Not at all Total CARTER-7 score (0-4 normal; 5-9 mild; 10-14 moderate; 15-21 severe): 3 Source: Developed by Drs. Godfrey Perry, Kim Ga, Gino Duckworth and colleagues, with an educational conchis from [employer]. Review of Systems Const Denies chills, Denies fatigue, Denies headache(s) and Denies weight loss Eyes Denies change in vision, Denies diplopia and Denies eye pain ENT Denies vertigo, Denies dizziness, Denies headache(s) and Denies nasal discharge Card Denies chest pain, Denies rapid heart rate and Denies dyspnea on exertion Resp Denies chest congestion, Denies cough, Denies pain with cough and Denies dyspnea on exertion GI Denies abdominal pain, Denies hematochezia and Denies change in bowel habits Musc Denies myalgias, Denies arthralgias and Denies joint swelling Skin/Breast Denies lesions and Denies unusual bruising Neuro Denies vertigo, Denies dizziness, Denies headache(s) and Denies focal weakness Endo Denies fatigue Physical exam (Primary Care) Vital Signs: Last Vital Signs Pulse 60 08/08/24 08:59 BP 144/82 H 08/08/24 08:59 Pulse Ox 97 08/08/24 08:59 Oxygen Delivery Method Room Air 08/08/24 08:59 BMI result Body Mass Index 31.9 Tobacco/Smoking Status: Tobacco use Status Tobacco use date assessed 04/06/24 08/08/24 09:00 Patient Tobacco Use Status Never used Tobacco 08/08/24 09:00 Tobacco use type Cigarette 08/08/24 09:00 e-Cigarette/Vaping Use Never Used 08/08/24 09:00 PHQ-9: PHQ-9 Score PHQ-9: Total score 0 08/08/24 09:00 Thrive Assessment: Date of Thrive Assessment Date Thrive assessed 04/06/24 08/08/24 09:00 Currently or been in a relationship where the following occur: I choose not to answer Const General: cooperative, healthy appearing and no acute distress Orientation/consciousness: oriented to person, oriented to place and oriented to time HENMT Head: Yes normal to inspection, Yes normocephalic and Yes atraumatic Mouth: Normal oral and palatal mucosa present and tongue normal Throat: Yes posterior oropharynx normal and Yes uvula midline Eyes General: appearance normal, both eyes and all related structures Neck Neck: Yes normal visual inspection, Yes full ROM and Yes no lymphadenopathy Thyroid: Thyroid normal Carotids: normal carotid upstroke Chest Chest palpation & inspection: normal inspection of the chest Resp Effort & Inspection: normal respiratory effort and able to speak in complete sentences Auscultation: clear to auscultation bilaterally Cardio Jugular venous distension: no JVD Palpation: normal PMI Rate: regular rate Rhythm: regular rhythm Heart sounds: S1 normal heart sound present and S2 normal heart sound present GI Inspection: Yes normal to inspection Palpation (GI): Soft to palpation and No hepatosplenomegaly present Auscultation: normal bowel sounds General: Yes no CVA tenderness Back/Spine/Pelvis Back: no CVA tenderness Skin General skin exam: no rashes or lesions noted Neuro General: oriented to person, oriented to place and oriented to time Extrem General: Yes normal to inspection and Yes full ROM Coding Level of Care Code Est Pt Prev Care >65y(00058) Diagnoses Physical exam Z00.00 Hypertension, unspecified type I10 Hypertension type: unspecified Hyperlipidemia, unspecified hyperlipidemia type E78.5 Hyperlipidemia type: unspecified Post traumatic stress disorder F43.10 Assessment & Plan Assessment & Plan (1) Physical exam: Code(s): Z00.00 - Encounter for general adult medical examination without abnormal findings Category: Medical Plan: do labs (2) Hypertension: Code(s): I10 - Essential (primary) hypertension Category: Medical Qualifiers: Hypertension type: unspecified Qualified Code(s): I10 - Essential (primary) hypertension Plan: stable; same rx (3) Hyperlipidemia: Code(s): E78.5 - Hyperlipidemia, unspecified Category: Medical Qualifiers: Hyperlipidemia type: unspecified Qualified Code(s): E78.5 - Hyperlipidemia, unspecified Plan: stable; same rx (4) Post traumatic stress disorder: Code(s): F43.10 - Post-traumatic stress disorder, unspecified Category: Medical Plan: stable; same rx
== END 2024-08-08 09:18 | disposition home or self-care (01) ==
PROVIDERS: PCP Internal Medicine; Visit Provider Internal Medicine
DX: Z00.00 Encounter for general adult medical examination without abnormal findings (principal); I10 Essential (primary) hypertension; E78.5 Hyperlipidemia, unspecified; F43.10 Post-traumatic stress disorder, unspecified

== ENCOUNTER → 2024-08-08 08:58 | Outpatient (BNVA) | payer MEDICARE, SELFPAY | PROVIDERS: PCP Internal Medicine; Visit Provider Internal Medicine | DX: Z00.00 Encounter for general adult medical examination without abnormal findings (principal); I10 Essential (primary) hypertension; E78.5 Hyperlipidemia, unspecified; F43.10 Post-traumatic stress disorder, unspecified | CPT/HCPCS: 96127; 99397 ==

== ENCOUNTER 2024-09-08 08:41 | Outpatient (AMB) | payer MEDICARE, SELFPAY ==
--- NOTE | 2024-09-08 08:43 | A.OFFVIS_ITS ---
Vital Signs 09/08/24 08:47 Height 5 ft 1.25 in Weight 170 lb 3.15 oz BMI 31.9 BP 132/84 Blood Pressure Location Rt brachial Position Sitting Pulse 79 Pulse Source Pulse Oximeter Intake Visit Reasons: f/u osteoporosis Intake Note: Patient present today for Osteoporosis follow up. 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 Accompanied by: Self / Same As Patient Allergies epinephrine [From Epifrin] Allergy (Intermediate, Verified 09/08/24 08:47) tacycardia procaine [From NOVOCAIN] Allergy (Unknown, Verified 09/08/24 08:47) TACHYCARDIA FROM NOVOCAINE Medication List - Last Reconciled 09/08/24 by Godfrey Samuels MD aspirin 81 mg PO DAILY calcium carbonate (Calcium 600) 600 mg PO DAILY cholecalciferol (vitamin D3) 50 mcg PO DAILY hydrochlorothiazide 12.5 mg PO DAILY 90 days multivitamin (Daily Multi-Vitamin tablet) 1 tab PO DAILY simvastatin 20 mg PO DAILY HPI Comments Details: 69 YO F with PMHx CLL is seen in consultation at the request of PCP for Osteoporosis. First diagnosed in 11/20/2021. No history of pathologic fracture or ONJ. Has 3 servings of dietary calcium per day in the form of milk, broccoli . Takes Calcium supplement 600 mg mg daily in divided doses. Takes 2000 IU of Vitamin D daily. Denies ever using PPI, anticoagulant, antiepileptic or glucocorticoid medication. 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 UTD on dental cleanings and sees dentist every 6 months. No planned upcoming dental work or extractions. DXA dated 12/03/21 : FINDINGS: AP SPINE L1-L4: BMD 0.850 g/cm2, Z-score -1.4, T-score -2.7, osteoporosis. LEFT FEMUR, NECK: BMD 0.790 g/cm2, Z-score -0.3, T-score -1.8, osteopenia. LEFT FEMUR, TOTAL: BMD 0.873 g/cm2, Z-score 0.1, T-score -1.1, osteopenia. Labs: Secondary workup negative. Currently on alendronate 70 mg q.week for 2 yrs Recent repeat bone density shows improvement into the low bone mass range. Urine NTX is suppressed. Pt stopped alendronate on own PFSH Medical History Incomplete right bundle branch block (RBBB) Post-menopausal Hypertension Vertigo Osteoarthritis of hands, bilateral Lymphoma Surgical History History of surgery History of colonoscopy History of bone marrow biopsy (~2016) Bilateral cataracts (~2018) History of tonsillectomy (~1953) Family History Father Liver cancer Hypertension Mother Ovarian cancer Sister Mental health disorder Social History Household Members: Significant Other Household Members Other:: Osmar Housing: House Alcohol intake: never Patient Tobacco Use Status: Never used Tobacco Tobacco use type: Cigarette e-Cigarette/Vaping Use: Never Used Second Hand Smoke Exposure: No service: No Current occupational status: employed 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 secondary causes have been ruled out. Currently on alendronate 70 mg Q. recent bone density shows improvement into the osteopenic range with suppressed bone turnover marker The plan is to stop the alendronate continue the calcium and vitamin-D. Patient will be returned to the care of her primary care provider who can repeat a DEXA bone density in 2 years time. If the patient progresses into the osteoporotic range years, the alendronate can be resumed with the patient returned back to endocrinology for discussion of treatment options Coding Level of Care Code Est Pt Level 3 (56897) Diagnoses Osteoporosis M81.0
[2024-09-08 08:47] VITALS: BP 132/84; PULSE 79; BMI 31.9
== END 2024-09-08 09:49 | disposition home or self-care (01) ==
PROVIDERS: PCP Internal Medicine; Visit Provider Internal Medicine Endocrinology, Diabetes & Metabolism
DX: M81.0 Age-related osteoporosis without current pathological fracture (principal)
CPT/HCPCS: 99213

== ENCOUNTER → 2024-09-08 08:41 | Outpatient (BNVA) | payer MEDICARE, SELFPAY | PROVIDERS: PCP Internal Medicine; Visit Provider Internal Medicine Endocrinology, Diabetes & Metabolism | DX: M81.0 Age-related osteoporosis without current pathological fracture (principal) | CPT/HCPCS: 99212 ==

== ENCOUNTER 2024-09-14 08:09 | Outpatient (REF) | payer MEDICARE, SELFPAY ==
[2024-09-14 09:02] LABS: Basophils Absolute Auto 0.1 X10*3/uL (0.0-0.2); Basophils Percent Auto 0.3 % (0-2); Eosinophils Absolute Auto 0.1 X10*3/uL (0.0-0.4); Eosinophils Percent Auto 0.5 % (0-4); Hematocrit 46.1 % (37.0-47.0); Hemoglobin 14.9 g/dl (12.0-16.0); Imm Gran Abs Auto 0.03 X10*3/uL (0.00-0.03); Imm Gran Pct Auto 0.1 % (0.0-0.4); Lymphocytes Percent Auto 82.7 % (20-40); MANUAL DIFF FLAG SCAN; Mean Corpuscular HGB Conc 32.3 g/dl (31.0-35.0); Mean Corpuscular Hemoglobin 31.2 pg (27.0-33.0); Mean Corpuscular Volume 96.6 fL (80.0-98.0); Mean Platelet Volume 10.5 fL (9.4-12.3); Monocytes Absolute Auto 0.5 X10*3/uL (0.1-1.2); Monocytes Percent Auto 2.1 % (2-11); Neutrophils Absolute Auto 3.4 x10*3/uL (2.0-8.3); Neutrophils Percent Auto 14.3 % (45-73); Platelet Count 213 X10*3/uL (160-400); Red Blood Count 4.77 X10*6/uL (4.20-5.50); Red Cell Distribution Width 13.2 % (11.0-16.0); SCAN SMEAR FLAG 1; White Blood Count 23.4 X10*3/uL (4.8-10.8)
[2024-09-14 09:03] LABS: Lymphocytes Absolute Auto 19.3 X10*3/uL (1.2-4.9)
[2024-09-14 09:30] LABS: SLIDE REVIEW VERIFIED
[2024-09-14 09:49] LABS: Alanine Aminotransferase 66 U/L (0-31); Albumin Level 4.3 g/dL (3.5-5.0); Alkaline Phosphatase 92 U/L (39-117); Anion Gap 16 (12-20); Aspartate Amino Transferase 39 U/L (5-31); Bilirubin Total 0.8 mg/dL (0.0-1.0); Blood Urea Nitrogen 18 mg/dL (9-16); Calcium 9.7 mg/dL (8.4-10.2); Carbon Dioxide 25 mmol/L (22-29); Chloride 104 mmol/L (96-108); Cholesterol 188 mg/dL (<200); Estimated Glomerular Filt Rate > 60; Glucose Fasting 141 mg/dL (60-99); HDL Cholesterol 56 mg/dL (>40); LDL Cholesterol Calculated 106 mg/dL (<100); Potassium 4.1 mmol/L (3.3-5.1); Sodium 141 mmol/L (135-145); Total Protein 6.6 g/dL (6.5-8.0); Triglycerides 133 mg/dL (<150)
== END 2024-09-14 08:10 | disposition home or self-care (01) ==
LOC: HO.LAB 08:09
PROVIDERS: PCP Internal Medicine; Visit Provider Internal Medicine Medical Oncology
DX: C91.10 Chronic lymphocytic leukemia of B-cell type not having achieved remission (principal); I10 Essential (primary) hypertension; E78.5 Hyperlipidemia, unspecified; E11.9 Type 2 diabetes mellitus without complications
CPT/HCPCS: 36415; 80053; 80061; 85025

== ENCOUNTER 2024-12-12 08:27 | Outpatient (AMB) | payer MEDICARE, SELFPAY ==
[2024-12-12 08:31] VITALS: BP 138/78; PULSE 71; O2SAT 98; BMI 31.9
--- NOTE | 2024-12-12 08:31 | A.OFFPC_ITS ---
Vital Signs 12/12/24 08:31 Height 5 ft 1.25 in Weight 170 lb BMI 31.9 BP 138/78 Blood Pressure Location Lt brachial Position Sitting Pulse 71 Pulse Source Pulse Oximeter Pulse Oximetry (%) 98 Oxygen Delivery Method Room Air Intake Visit Reasons: 4 months f/u Allergies epinephrine [From Epifrin] Allergy (Intermediate, Verified 12/12/24 08:32) tacycardia procaine [From NOVOCAIN] Allergy (Unknown, Verified 12/12/24 08:32) TACHYCARDIA FROM NOVOCAINE Medication List - Last Reconciled 12/12/24 by Raji Slade MD aspirin 81 mg PO DAILY calcium carbonate (Calcium 600) 600 mg PO DAILY cholecalciferol (vitamin D3) 50 mcg PO DAILY hydrochlorothiazide 12.5 mg PO DAILY 90 days multivitamin (Daily Multi-Vitamin tablet) 1 tab PO DAILY simvastatin 20 mg PO DAILY Tobacco use date assessed: 12/12/24 Fall risk assessment: No Falls in past year Last assessed Fall Risk: 12/12/24 Dental Screening Dental Screen Date: 12/12/24 Did you have a dental visit in the last 12 months?: Yes Did you have a dental problem in the last 6 months where you did not have access to dental care?: No Was dental information given to patient?: Patient has dentist HPI 4 months f/u HPI Details HTN and hyperlipidemia; stable; compliant [facility] Medical History Incomplete right bundle branch block (RBBB) Post-menopausal Hypertension Vertigo Osteoarthritis of hands, bilateral Lymphoma Surgical History History of surgery History of colonoscopy History of bone marrow biopsy (~2016) Bilateral cataracts (~2018) History of tonsillectomy (~1953) Family History Father Liver cancer Hypertension Mother Ovarian cancer Sister Mental health disorder Social History Household Members: Significant Other Household Members Other:: Osmar Housing: House Alcohol intake: never Patient Tobacco Use Status: Never used Tobacco Tobacco use type: Cigarette e-Cigarette/Vaping Use: Never Used Second Hand Smoke Exposure: No service: No Current occupational status: employed Current occupation: [employer] - Right Handed Cognitive needs: No Hearing needs: No Vision needs: Yes (reading glasses) Questionnaire PHQ-9 Over the last 2 weeks, how often have you been bothered by any of the following problems? 1. Little interest or pleasure in doing things: not at all 2. Feeling down, depressed, or hopeless: not at all 3. Trouble falling or staying asleep, or sleeping too much: not at all 4. Feeling tired or having little energy: not at all 5. Poor appetite or overeating: not at all 6. Feeling bad about yourself - or that you are a failure or have let yourself or your family down: not at all 7. Trouble concentrating on things, such as reading the newspaper or watching television: not at all 8. Moving or speaking so slowly that other people could have noticed. Or the opposite - being so fidgety or restless that you have been moving around a lot more than usual: not at all 9. Thoughts that you would be better off or of hurting yourself in some way: not at all Total score: 0 Depression Screening Interpretation: Negative Depression Screening Done: Yes 83400 - PHQ-9 Billing: Yes Source: Developed by Drs. Godfrey Perry, Kim Ga, Gino Duckworth and colleagues, with an educational conchis from [employer]. Thrive Questionnaire Date Thrive assessed: 12/12/24 I am a: Patient What is your living situation today?: I choose not to answer this question Within the past 12 months, did the food you bought not last and you didn't have the money to get more?: Never true Within the past 12 months, did you worry whether your food would run out before you got money to buy more?: Never true Do you have trouble paying for medicines?: No Do you have trouble getting transportation to medical appointments?: No Do you have trouble paying your heating and electricity bill?: No Do you have trouble taking care of your child, family member or friend?: No Do you have trouble with day-to-day activities such as bathing, preparing meals, shopping, managing finances, etc.?: No Are you currently unemployed and looking for a job?: No Are you interested in more education?: No Please select the resources that you would like help with: None Currently or been in a relationship where the following occur: I choose not to answer THRIVE Score: 0 AUDIT C Alcohol Use Questionnaire (AUDIT-C) 2. How many drinks containing alcohol do you have on a typical day when you are drinking?: 1 or 2 3. How often do you have six or more drinks on one occasion?: Never Total Score: 0 CARTER-7 AMB Questionnaire CARTER-7 Date CARTER - 7 assessed: 12/12/24 Feeling nervous, anxious, or on edge: 1 = Several days Not being able to stop or control worryin = Several days Worrying too much about different things: 1 = Several days Trouble relaxin = Not at all Being so restless that it is hard to sit still: 0 = Not at all Becoming easily annoyed or irritable: 0 = Not at all Feeling afraid as if something awful might happen: 0 = Not at all Total CARTER-7 score (0-4 normal; 5-9 mild; 10-14 moderate; 15-21 severe): 3 Source: Developed by Drs. Godfrey Perry, Kim Ga, Gino Duckworth and colleagues, with an educational conchis from [employer]. CARTER-7 Assessment Billing CARTER-7 Assessment Tool: CARTER-7 Assessment 51791 Review of Systems Const Denies chills, Denies headache(s) and Denies weight loss ENT Denies headache(s) Card Denies chest pain, Denies syncope, Denies irregular heart rhythm and Denies dyspnea Resp Denies chest congestion, Denies cough and Denies dyspnea GI Denies abdominal pain, Denies change in stool character, Denies nausea and Denies vomiting Musc Denies deformity and Denies joint swelling Neuro Denies syncope and Denies headache(s) Physical exam (Primary Care) Vital Signs: Last Vital Signs Pulse 71 12/12/24 08:31 BP 138/78 12/12/24 08:31 Pulse Ox 98 12/12/24 08:31 Oxygen Delivery Method Room Air 12/12/24 08:31 BMI result Body Mass Index 31.9 Tobacco/Smoking Status: Tobacco use Status Tobacco use date assessed 12/12/24 12/12/24 08:39 Patient Tobacco Use Status Never used Tobacco 12/12/24 08:39 Tobacco use type Cigarette 12/12/24 08:39 e-Cigarette/Vaping Use Never Used 12/12/24 08:39 PHQ-9: PHQ-9 Score PHQ-9: Total score 0 12/12/24 08:39 Depression Screening Interpretation: Negative Thrive Assessment: Date of Thrive Assessment Date Thrive assessed 12/12/24 12/12/24 08:39 Currently or been in a relationship where the following occur: I choose not to answer Const General: cooperative, comfortable, no acute distress and alert Neck Neck: Yes no lymphadenopathy Thyroid: Thyroid normal Resp Effort & Inspection: normal respiratory effort Auscultation: clear to auscultation bilaterally Percussion: percussion normal Cardio Jugular venous distension: no JVD Palpation: normal PMI Rate: regular rate Rhythm: regular rhythm Heart sounds: S1 normal heart sound present and S2 normal heart sound present GI Inspection: Yes normal to inspection Palpation (GI): No hepatosplenomegaly present Skin General skin exam: no rashes or lesions noted Extrem General: Yes no clubbing, cyanosis or edema Coding Level of Care Code Est Pt Level 3 (46286) Diagnoses Hypertension, unspecified type I10 Hypertension type: unspecified Hyperlipidemia, unspecified hyperlipidemia type E78.5 Hyperlipidemia type: unspecified Additional Codes CARTER-7 Assessment Billing - CARTER-7 Assessment Tool: CARTER-7 Assessment 06767 ([id number]) PHQ-9 - 00564 - PHQ-9 Billing: Yes ([id number]) Assessment & Plan Assessment & Plan (1) Hypertension: Code(s): I10 - Essential (primary) hypertension Category: Medical Qualifiers: Hypertension type: unspecified Qualified Code(s): I10 - Essential (primary) hypertension Plan: stable; same rx (2) Hyperlipidemia: Code(s): E78.5 - Hyperlipidemia, unspecified Category: Medical Qualifiers: Hyperlipidemia type: unspecified Qualified Code(s): E78.5 - Hyperlipidemia, unspecified Plan: stable; same rx
--- OUTSIDE RECORDS SUMMARY | 2024-12-12 08:48 | XMS_ITS ---
Author Organization Total [facility] Address [address] [place] [address] Care Team Providers Care Furniture Assembler Name Role Phone SHERRY KING Primary Care Provider GUSTAVO Mascorro Unavailable [phone] REASON FOR VISIT LR MEDICARE PE Encounters Encounter Location Date Provider Diagnosis [facility] [address] [place] [id number] 10/24/2024 GUSTAVO MCDONOUGH Encounter for gynecological examination [...] Follow Up: 1 Year, Reason: Y early Department Editor Exam Provider Name:GUSTAVO Dougherty, 01/16/2025 11:00:00 AM, [address], [address], [place], [address], Progress Notes * ENOC FAMADOB:1955 ( 69 yo F)Acc No.[id number]:10/24/2024 PROGRESS NOTES Patient:?LENORA FAM Provider:?GUSTAVO MCDONOUGH MD :1955???Age:69 Y???Sex:Female D ate:10/24/2024 Address:[address] [place], [place] [id number] Pcp:SHERRY KING Subjective: * Chief Complaints: * ???1. LR MEDICARE PE. 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 She has the following concerns: ?She has received the [employer] Covid-19 vaccine. ?Relationship status: *partnered for 22 years. They live together and she feels safe at home. She is not sexually active - he has ED. Sexual partner(s): male. She does not wish to have STI testing. ?She does *not report vaginal dryness. She does not have hot flashes/night sweats. ?The patient has not had an abnormal pap smear within the last 5 years. She had a colposcopy in the early 1989's, but no other abnormal paps. Her most recent pap smear was a few years ago with Dr Booker. Paps are no longer indicated. ?She has not been diagnosed with breast cancer. She does have a family history of breast cancer - her sister. Her mother had ovarian cancer in her 80's. Her last mammogram was *11/2021 - at [facility]. She was told she has dense breast tissue. ?She does *not have a family history of colon cancer. She a has had a colonoscopy. The last colonoscopy was 07/15/17. ?The patient does* exercise. She exercises in good weather by walking. * ROS:?Annual Department Editor Exam ROS:?Bowel habit changes?denies.?Bladder symptoms?denies.?Vaginal discharge, unusual?denies.?Vaginal itch or odor?denies.?weight or appetite changes?denies.?Chest pains, SOB?denies.?depression?denies.?Breast:?Denies?Breast lump.?Denies?Nipple discharge.?Hematology:?Denies?Swollen glands.?Skin:?Patient denies?changing moles.?Psychiatric:?Denies?Anxiety.? * Medical History:? * Department Editor History:?/ Para?4/4.?Sexual activity?not currently sexually active.?Last Pap Smear:?YEARS AGO-DR. BOOKER.?Mammogram:?11/2021 [facility].?LMP and menses?menopause.?History of STD's:?none.?Menarche?9.?Colonoscopy?07/15/2017.?Bone Density:?11/2021.? * OB History:?Total pregnancies?4.?Total living children?4.? # 1:?normal spontaneous vaginal delivery (), 1976, Chente, 7.5lbs, no complications.? # 2:?normal spontaneous vaginal delivery (), 1981, Catracho, 8lb 2oz, no complications.? # 3?normal spontaneous vaginal delivery (), 1984, Usman, 7.5lbs, no complications.? # 4:?normal spontaneous vaginal delivery (), 1988, Shelby, 7.5lb, no complications.? Objective: * Vitals:? * Examination: ???General Examination: ?GENERAL APPEARANCE:?in no acute distress, well developed, well nourished, resident care spec present in room.?HEAD:?normocephalic, atraumatic.?NECK/THYROID:?neck supple, full range of motion, thyroid normal.?LYMPH NODES:?no axillary or supraclavicular adenopathy.?SKIN:? normal, good turgor, no rashes, no suspicious lesions.?BREASTS:? normal, no dimpling, no discharge, no drainage, no masses palpable bilaterally, nontender.?ABDOMEN:? soft, non-tender, non distended without masses or hepatosplenomegay.?RECTAL:? normal tone, no masses palpable.?BACK:? no costovertebral angle tenderness.?FEMALE GENITOURINARY:?Vulva without lesions or masses, vagina pink without abnormal discharge, lesions or masses, cervix appears normal and is not tender to palpation, uterus is normal size, mobile, nontender and anteverted, ovaries are not palpable.?NEUROLOGIC:? alert and oriented, gait normal.?PSYCH:? alert, oriented, cognitive function intact, cooperative with exam, good eye contact, mood/affect full range, speech clear.? Assessment: * Assessment: 1.?Encounter for gynecologic al examination (general) (routine) without abnormal findings - Z01.419 (Primary)???2.?Encounter for screening mammogram for malignant neoplasm of breast - Z12.31??? Plan: * Treatment: 2.?Encounter for screening m ammogram for malignant neoplasm of breast?Imaging: MM Digital Screening Mammogram 3D * Follow Up:?1 Year (Reason: Y early Department Editor Exam) * Images: Billing Information: * Visit Code:? 67858 Preventive Care Est Pt. Age 65 and over. * Procedure Codes:? 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 She has been in state of good health since her last exam. She has the following concerns: She has received the [employer] Covid-19 vaccine. Relationship status: *partnered for 22 [...] She had a colposcopy in the early s, but no other abnormal paps. Her most recent pap smear was a few years ago with Dr Booker. Paps are no longer indicated. She has not been diagnosed with breast cancer. She does have a family history of breast cancer - her sister. Her mother had ovarian cancer in her 80's. Her last mammogram was *11/2021 - at [facility]. She was told she has dense breast tissue. She does *not have a family history of colon cancer. She a has had a colonoscopy. The last colonoscopy was 07/15/17. The patient does* exercise. She exercises in good weather by walking. Examination Category Sub-Category Detail Notes Category Not es General Examination GENERAL APPEARANCE: in no ac taj distress, well developed, well nourished, resident care spec present in room HEAD: normocephalic, atrau matic [...]
--- OUTSIDE RECORDS SUMMARY | 2024-12-12 08:48 | XMS_ITS ---
Author Organization Godfrey Conte III, MD Address [address] [place] [address] Care Team Providers Care Sheet Turner Name Role Phone Raji Slade MD Primary Care Provider Godfrey Lozano Unavailable [phone] Allergies Allergen (clinical drug ingredient) Drug/Non Drug [...] Problem Status W/U Status Risk Notes Problem 772288826 Overweight (E66.3) Active confirmed Her body mass [...] Date Provider Diagnosis Godfrey Conte III, MD [address] [place] [address] [place] [address] 09/21/2024 Godfrey Conte Chronic lymphocytic leukemia C91.10 [...] Months, Reason: ov review labs Provider Name:Godfrey Kohlirne, 03/22/2025 09:30:00 AM, [address] [place] [address] [address] [place] [address], [place], [phone], Progress Notes * CHUNEben ALBERTSa ADOB:1955 (69 yo F)Acc No.[id number]:09/21/2024 Progress Notes Patient:?Eben DE SOUZAa Lizabeth Provider:?Godfrey Conte MD :1955???Age:69 Y???Sex:Female D ate:09/21/2024 Address:[address] [place] [address] [place] [id number] Pcp:Raji Slade MD Subjective: * Chief Complaints: * ???Chronic lymphocytic leuke miaHypertensionHyperlipidemiaDiabetes * HPI: ???COVID-19 Screening:?Questions?Have you experienced fever, chills, cough, sore throat, shortness of breath, difficulty breathing, muscle aches, loss of taste or smell??No ?Have you been exposed to the virus within the last 10 days??No ?Have you travelled internationally in the last 10 days??No ?Have you been exposed to COVID-19 in the past??No ???:? The patient, a 69-year-old female, presented with [...] symptoms. Blood Sugar Level is 141. * ROS:?General/Constitutional:?pain?only normal aches and pains.?Denies?Chills,?denies.?Fatigue?admits.?Fever?denies.?ENT:?Decreased hearing?mild.?Respiratory:?Cough?denies.?Cardiovascular:?Chest pain with exertion?denies.?Dyspnea on exertion?denies.?Shortness of breath?denies.?Gastrointestinal:?Constipation?occasional.?Decreased appetite?denies.?Diarrhea?denies.?Heartburn?denies.?Nausea?denies.?Rectal bleeding?denies.?Vomiting?denies.?Hematology:?bruising?denies.?petechiae?denies.?Swollen glands?none have been noted.?Genitourinary:?Frequent urination?at night.?Musculoskeletal:?Muscle aches?denies.?Painful joints?denies.?Sciatica?denies.?Weakness?denies.?Skin:?Itching?denies.?Rash?denies.?Skin lesion(s)?denies.?Neurologic:?Difficulty speaking?denies.?Dizziness?denies.?Headache?denies.?Low back pain?denies.?Psychiatric:?Depressed mood?denies.? * Medical History:? * Surgical History:? T&A N o history * Hospitalization/Major Diagno stic Procedure:?pregnancies No history * Family History:?Father: dece ased 69 yrs, liver cancer at 69, malaria, diagnosed with HTN.?Mother: 84 yrs, ovarian cancer, aodm,, diagnosed with DM.?Children: alive, diagnosed with DM.?Siblings: alive 64 yrs.?2 sister(s) . 3 son(s) , 1 daughter(s) . .? One of her sisters was diagnosed with Alzheimer's disease at age 59. Two of her sons has juvenile diabetes. Her father's mother had cancer of the cervix. Her sister has developed invasive ductal carcinoma the breast at the age of 65 and 2022. She is not aware of any family history of mental illness or substance use disorder or addiction. Mother had type 2 diabetes. * Social History:?Tobacco Use:?Tobacco Use/Smoking?Patient is a?nonsmoker ?Additional Findings: Tobacco Non-User?Aggressive non-smoker ???Drugs/Alcohol:?Drugs?Have you used drugs other than those for medical reasons in the past 12 months??No ?Alcohol Screen?Did you have a drink containing alcohol in the past year??No ?Points?0 ?Interpretation?Negative ???She was born at [facility] in [place]. She is and has 3 sons and 1 daughter. 2 of her sons have diabetes. She has one grandchild who lives in [place]. 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 The patient reported walking regularly with a neighbor. * Medications:?TakingAspirin 8 1 MG Tablet 1 tablet Orally Once a [...] reviewed and reconciled with the patient * Allergies:?Epinephrine: Side Effectsno[Allergies Verified] Objective: * Vitals:?Ht: 62, Wt:170, BMI: 31.09, BP:135/78, HR:77, Temp:97.2, Wt-k.11. * ???Past Orders: Lab:Complete Blood Count Aut o Diff * Collection Date 09/14/2024 01/04/2024 09/07/2023 Collection Time 08:24 AM 08:09 AM 08:09 AM Order Date 09/14/2024 01/04/2024 09/07/2023 White Blood Count 23.4?H (Ref Range: 4.8-10.8 X10*3/uL) 23.4?H (Ref Range: 4.8-10.8 X10*3/uL) 22.3?H (Ref Range: 4.8-10.8 X10*3/uL) Red Blood Count [...] (Ref Range: 9.4-12.3 fL) Neutrophils Percent Auto 14.3?L (Ref Range: 45-73 %) 11.8?L (Ref Range: 45-73 %) 15.5?L (Ref Range: 45-73 %) Imm Gran Pct Auto 0.1 (Ref Range: 0.0-0.4 %) 0.1 (Ref Range: 0.0-0.4 %) 0.2 (Ref Range: 0.0-0.4 %) Lymphocytes Percent Auto 82.7?H (Ref Range: 20-40 %) 85.3?H (Ref Range: 20-40 %) 81.1?H (Ref Range: 20-40 %) Monocytes Percent Auto [...] 0.00-0.03 X10*3/uL) 0.03 (Ref Range: 0.00-0.03 X10*3/uL) 0.04?H (Ref Range: 0.00-0.03 X10*3/uL) Lymphocytes Absolute Auto 19.3?H (Ref Range: 1.2-4.9 X10*3/uL) 20.0?H (Ref Range: 1.2-4.9 X10*3/uL) 18.1?H (Ref Range: 1.2-4.9 X10*3/uL) Monocytes Absolute Auto [...] 163 (Ref Range: mg/dL) LDL Cholesterol Calculated 106?H (Ref Range: <100 mg/dL) 113?H (Ref Range: <100 mg/dL) 96 (Ref Range: mg/dl) HDL Cholesterol 56 (Ref Range: >40 mg/dL) 61 (Ref Range: >40 mg/dL) 51 (Ref Range: mg/dL) * Lab:[facility] [place]. Pane l Fast * Collection Date 09/14/2024 01/04/2024 04/18/2022 Collection Time 08:24 AM 08:09 AM 07:51 AM Order Date 09/14/2024 01/04/2024 04/18/2022 Sodium 141 (Ref Range: 135-145 mmol/L) 142 (Ref Range: 135-145 mmol/L) 140 (Ref Range: 135-145 mmol/L) Bilirubin Total 0.8 (Ref Range: 0.0-1.0 mg/dL) 0.7 (Ref Range: 0.0-1.0 mg/dL) 0.6 (Ref Range: 0.0-1.0 mg/dL) Aspartate Amino Transferase 39?H (Ref Range: 5-31 U/L) 31 (Ref Range: 5-31 U/L) 29 (Ref Range: 5-31 U/L) Alanine Aminotransferase 66?H (Ref Range: 0-31 U/L) 38?H (Ref Range: 0-31 U/L) 42?H (Ref Range: 0-31 U/L) Total Protein 6.6 [...] (Ref Range: 12-20) 14 (Ref Range: 12-20) 11?L (Ref Range: 12-20) Blood Urea Nitrogen 18?H (Ref Range: 9-16 mg/dL) 22?H (Ref Range: 9-16 mg/dL) 21?H (Ref Range: 9-16 mg/dL) Creatinine 0.82 (Ref Range: 0.5-1.4 mg/dL) 0.91 (Ref Range: 0.5-1.4 mg/dL) 0.88 (Ref Range: 0.5-1.4 mg/dL) Estimated Glomerular Filt Rate > 60 > 60 > 60 Glucose Fasting 141?H (Ref Range: 60-99 mg/dL) 138?H (Ref Range: 60-99 mg/dL) 120?H (Ref Range: 60-99 mg/dL) Calcium 9.7 (Ref Range: 8.4-10.2 mg/dL) 9.7 (Ref Range: 8.4-10.2 mg/dL) 9.7 (Ref Range: 8.4-10.2 mg/dL) * Examination: ???General Examination: ?GENERAL APPEARANCE:?pleasant, well nourished, well developed, in no acute distress, calm and relaxed, woman, obese, woman.?HEAD:?atraumatic, normocephalic.?EYES:?eomi, perrla, anicteric, conjugate.?EARS:?normal.?NOSE:?septum intact.?ORAL CAVITY:?normal, unremarkable.?NECK/THYROID:?no jugular venous distention, no carotid bruit, thyroid normal.?LYMPH NODES:?no enlarged lymph nodes,spleen normal.?SKIN:?no suspicious lesions, anicteric.?HEART:?no clicks, gallops, murmurs, or rubs, regular rhythm, S1, S2 normal, no s3, or vascular bruits.?LUNGS:?clear to auscultation .?BREASTS:?Not examined.?ABDOMEN:?bowel sounds normal, no ascites, no organomegaly, no mass, centripital obesity.?RECTAL EXAM:?not examined.?MUSCULOSKELETAL:?extremities unremarkable, no clubbing, cyanosis or edema.?PERIPHERAL PULSES:?normal.?NEUROLOGIC:?alert and oriented, cranial nerves 2-12 grossly intact, deep tendon reflexes 2+ symmetrical, motor strength normal upper and lower extremities, sensory exam intact.?PSYCH:?alert, oriented.? : ???Ear Examination:No issues found, Blood Pressure: High, Blood Sugar: High, Weight: Increased. ??? Assessment: * Assessment: 1.?Chronic lymphocytic leuke rick - C91.10 (Primary)???Notes :Her chronic lymphocytic leukemia remains early Stage and stable. Observation alone may continue. There is no adenopathy or splenomegaly. Her constitutional B symptoms.???2.?Overweight - E66.3???Notes :Her body mass index is now 31. She has gained 9 pounds I recommended she continue to lose weight at a rate of 1/2 pound per week.???3.?Essential hypertension - I10???Notes :Her blood pressure is currently stable and no change in her regimen was made today.???4.?Hyperlipidemia - E78.5???Notes :Her total cholesterol is 194. We discussed her diet and nutrition. He will be managed by primary care.???5.?Diabetes - E11.9???Notes :She has been compliant with all of her medications. We discussed her diabetic diet and weight loss. Her fasting gluucose is 141.??? Plan: * Treatment: 2.?Essential hypertension?LAB: PROFILE, FASTING (COMPREHENSIVE METABOLIC) ?LAB: CBC w DIFF ?LAB: BETA-2 MICROGLOBULIN, SERUM ?LAB: Lipid Panel 3.?Hyperlipidemia?LAB: PROFILE, FASTING (COMPREHENSIVE METABOLIC) ?LAB: CBC w DIFF ?LAB: BETA-2 MICROGLOBULIN, SERUM ?LAB: Lipid Panel 4.?Diabetes?LAB: PROFILE, FASTING (COMPREHENSIVE METABOLIC) ?LAB: CBC w DIFF ?LAB: BETA-2 MICROGLOBULIN, SERUM ?LAB: Lipid Panel 5.?Others? Continue Alendronate Sodium.?? * Procedure Codes:? * Preventive Medicine:? ??DM Care Plan:?Patient Lifestyle Goals?Patient wants to be able to manage diabetes without too much effort.?Treatment Goals?HbA1C < 7.0.?Barriers?no barriers.?Self-Managment Goals?Work on weight loss, with a goal of losing 1 lb per week.? * Follow Up:?6 Months (Reason: ov review labs) * Images: * Sign off status: Completed true * Provider:?Godfrey Conte MD Date:?01/2024 Generated for Printi bindu/Dann/eTransmitting on:?12/12/2024 08:48 AM EST History and Physical [...]
--- OUTSIDE RECORDS SUMMARY | 2024-12-12 08:48 | XMS_ITS | Patient Health Record ---
Author Organization Total [facility] Address [address] [facility] [address] [place] [address] Care Team Providers Care Launchman Name Role Phone SHERRY KING Primary Care Provider GUSTAVO Mascorro Unavailable [phone] Allergies Allergen (clinical drug ingredient) Drug/Non Drug Allergy documented on EMR Reaction Allergy Type Onset Date Status epinephrine Epinephrine TACHYCARDIA Drug Allergy A ctive Reason For Referral No Information Medications Medication SIG (Take, Route, Frequency, Duration) Notes Start Date End Date Status Simvastatin 20 MG 1 tablet in the even ing Orally Once a day for 30 day(s) Active hydroCHLOROthiazide 12.5 MG 1 capsule in the morning Orally Once a day for 30 day(s) Active Social History Tobacco Use: Social History Observation Description Date Details (start date - stop date) Never Smoker NA - NA Tobacco Use/Smoking Question Answer Notes Are you a nonsmoker Alcohol Screen (Audit-C) Question Answer Notes Did you have a drink containing alcohol in the p ast year? No Points 0 Interpretation Negative Problems Problem Type SNOMED Code ICD Code Onset Dates Problem Status W/U Status Risk Notes Problem Age-related osteoporosis (450284059) Age-related osteoporosis without current pathological fracture (M81.0) Active confirmed Problem Essential hypertension (48897084) Essential (primary) hypertension (I10) Active confirmed Problem Chronic lymphoid leukemia, disease (14097910) 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) Active confirmed Problem Hyperlipidemia (34958274) Hyperlipidemia, unspecified (E78.5) Active confirmed Plan Of Treatment Pending Test Test Name Order Date MM Digital Screening Mammogram 3D 2022 Next Appt Details Provider Name:GUSTAVO Dougherty, 01/16/2025 11:00:00 AM, [address], [address], [place], [address], Insurance Providers Payer Name Payer Address Payer Phone Subscriber Number Group Number Insured Name Patient Relationship to Insured Coverage Start Date Coverage End Date [employer] [address] [place] [id number] JOSTIN FAM Self - patient is the insured Medical (General) History Medical History History ICD Code Essential (primary) hypertension I10 Age-related osteoporosis without current pathological fracture M81.0 Hyperlipidemia, unspecified E78.5 Chronic lymphocytic leukemia of B-cell t ype not having achieved remission C91.10 Surgical History Surgery Date(Month/Year) BX OF TEMPORAL ARTERY 01/2019 CHILDBIRTH X 4 Hospitalization History Reason Date(Month/Year) SEE SURGICAL HX
--- OUTSIDE RECORDS SUMMARY | 2024-12-12 08:48 | XMS_ITS ---
Author Organization Godfrey Conte III, MD Address [address] [place] [address] [place] [address] Care Team Providers Care Copy Chaser Name Role Phone Yany HINOJOSA, Raji Primary Care Provider Godfrey Lozano [phone] REASON FOR VISIT Follow Up Social History Sex Assigned At : Social History Observation Description Sex Assigned At Female Encounters Encounter Location Date Provider Diagnosis Godfrey Conte III, MD [address] [place] [address] [address] [facility] [place] [address] 06/09/2024 Godfrey Conte Plan Of Treatment Next Appt Details Provider Name:Godfrey Conte, 03/22/2025 09:30:00 AM, [address] [place] [address] [address], [place], [address], Progress Notes * Lenora DE SOUZA ADOB:1955 (69 yo F)Acc No.[id number]:06/09/2024 Progress Notes Patient:?Lenora DE SOUZA Provider:?Godfrey Conte MD :1955???Age:69 Y???Sex:Female D ate:06/09/2024 Address:[address] [place], [place] [id number] Pcp:Raji Slade MD Subjective: * Chief Complaints: * ???1. Follow Up. * Medical History:? Objective: * Vitals:? Assessment: Plan: * Treatment: * Images: * The named appointment provid er may or may not be the originator of this progress note, and it is not deemed complete until electronically signed by the appointment provider. Sign off status: Pending * Provider:?Godfrey Conte MD Date:?05/20 Generated for Laya ruano/Dann/Charles on:?12/12/2024 08:48 AM EST
--- OUTSIDE RECORDS SUMMARY | 2024-12-12 08:48 | XMS_ITS | Patient Health Record ---
Author Organization Godfrey Conte III, MD Address [address] [place] [address] Care Team Providers Care Desk Pens Assembler Name Role Phone Raji Slade MD Primary Care Provider Godfrey Lozano Unavailable [phone] Allergies Allergen (clinical drug ingredient) Drug/Non Drug Allergy documented on EMR Reaction Allergy Type Onset Date Status epinephrine Epinephrine Unknown Drug Allergy Act lorenza Results Component Value Reference Range Notes Complete Blood Count Auto Di ff Reviewed date:01/04/2024 03:49:46 PM Interpretation: Performing Lab:[facility], [address] [place] [phone] Notes/Report: White Blood Count 23.4 4.8-10.8 X10*3/uL Red Blood Count 4.84 4.20-5.50 X10*6/uL Hemoglobin 15.6 12.0-16.0 g/dl Hematocrit 46.7 37.0-47.0 % Mean Corpuscular Volume 96.5 80.0-98.0 fL Mean Corpuscular Hemoglobin 32.2 27.0-33.0 pg Mean Corpuscular HGB Conc 33.4 31.0-35.0 g/dl Red Cell Distribution Width 13.4 11.0-16.0 % Platelet Count 230 160-400 X10*3/uL Mean Platelet Volume 10.6 9.4-12.3 fL Neutrophils Percent Auto 11.8 45-73 % Imm Gran Pct Auto 0.1 0.0-0.4 % Lymphocytes Percent Auto 85.3 20-40 % Monocytes Percent Auto 2.0 2-11 % Eosinophils Percent Auto 0.5 0-4 % Basophils Percent Auto 0.3 0-2 % NRBC Pct Auto 0.0 0.0-0.2 /100WBC Neutrophils Absolute Auto 2.8 2.0-8.3 x10*3/u L Imm Gran Abs Auto 0.03 0.00-0.03 X10*3/uL Lymphocytes Absolute Auto 20.0 1.2-4.9 X10*3/u L Monocytes Absolute Auto 0.5 0.1-1.2 X10*3/uL Eosinophils Absolute Auto 0.1 0.0-0.4 X10*3/u L Basophils Absolute Auto 0.1 0.0-0.2 X10*3/uL NRBC Abs Auto 0.000 0.0-0.012 X10*3/uL White Blood Count 23.4 4.8-10.8 X10*3/uL Red Blood Count 4.84 4.20-5.50 X10*6/uL Hemoglobin 15.6 12.0-16.0 g/dl Hematocrit 46.7 37.0-47.0 % Mean Corpuscular Volume 96.5 80.0-98.0 fL Mean Corpuscular Hemoglobin 32.2 27.0-33.0 pg Mean Corpuscular HGB Conc 33.4 31.0-35.0 g/dl Red Cell Distribution Width 13.4 11.0-16.0 % Platelet Count 230 160-400 X10*3/uL Mean Platelet Volume 10.6 9.4-12.3 fL Neutrophils Percent Auto 11.8 45-73 % Imm Gran Pct Auto 0.1 0.0-0.4 % Lymphocytes Percent Auto 85.3 20-40 % Monocytes Percent Auto 2.0 2-11 % Eosinophils Percent Auto 0.5 0-4 % Basophils Percent Auto 0.3 0-2 % NRBC Pct Auto 0.0 0.0-0.2 /100WBC Neutrophils Absolute Auto 2.8 2.0-8.3 x10*3/u L Imm Gran Abs Auto 0.03 0.00-0.03 X10*3/uL Lymphocytes Absolute Auto 20.0 1.2-4.9 X10*3/u L Monocytes Absolute Auto 0.5 0.1-1.2 X10*3/uL Eosinophils Absolute Auto 0.1 0.0-0.4 X10*3/u L Basophils Absolute Auto 0.1 0.0-0.2 X10*3/uL NRBC Abs Auto 0.000 0.0-0.012 X10*3/uL CORRECTED REPORT CORRECTED REPORT Comprehensive [place]. Panel Fa st Reviewed date:01/04/2024 03:49:46 PM Interpretation: Performing Lab:[facility], [address] [place] [phone] Notes/Report: Sodium 142 135-145 mmol/L Potassium 4.0 3.3-5.1 mmol/L Chloride 104 96-108 mmol/L Carbon Dioxide 28 22-29 mmol/L Anion Gap 14 12-20 Blood Urea Nitrogen 22 9-16 mg/dL Creatinine 0.91 0.5-1.4 mg/dL Estimated Glomerular Filt Rate > 60 NOTE: For -[place]ai[place]ese individuals, multiply the result by 1.210. Chronic Kidney Disease: Estimated GFR < 60 mL/min/1.73m2 Severe Kidney Disease: Estimated GFR < 15 mL/min/1.73m2 Glucose Fasting 138 60-99 mg/dL A fasting glucose of 126 mg/dl or greater on more than one occasion is considered diagnostic of diabetes. Calcium 9.7 8.4-10.2 mg/dL Bilirubin Total 0.7 0.0-1.0 mg/dL Aspartate Amino Transferase 31 5-31 U/L Alanine Aminotransferase 38 0-31 U/L Total Protein 7.0 6.5-8.0 g/dL Albumin Level 4.4 3.5-5.0 g/dL Alkaline Phosphatase 91 39-117 U/L Lipid Panel Reviewed date:01/04/2024 03:49:46 PM Interpretation: Performing Lab:[facility], [address] [place] [phone] Notes/Report: Triglycerides 104 <150 mg/dL Desirable Triglyceride: less than 150 mg/dL Borderline High Triglyceride 150-199 mg/dL High Triglyceride: 200-499 mg/dL Very High Triglyceride: greater than or equal to 5OO mg/dL Cholesterol 194 <200 mg/dL Desirable Cholesterol: less than 200 mg/dL Borderline High Cholesterol: 200-239 mg/dL High Cholesterol: greater than 239 mg/dL LDL Cholesterol Calculated 113 <100 mg/dL Desirable LDL: less than 100 mg/dL Near Optimal/Above Optimal LDL: 110-129 mg/dL Borderline High LDL: 130-159 mg/dL High LDL: 160-189 mg/dL Very High LDL: greater than or equal to 190 mg/dL HDL Cholesterol 61 >40 mg/dL Desirable HDL: greater than 40 mg/dL Note: This HDL assay may give artificially low results in patients with liver disease. SLIDE REVIEW Reviewed date:01/04/2024 03:49:46 PM Interpretation: Performing Lab:[facility], [address] [place] [phone] Notes/Report: SLIDE REVIEW VERIFIED Complete Blood Count Auto Di ff Reviewed date:09/15/2024 07:38:09 AM Interpretation: Performing Lab:[facility], [address] [place] [phone] Notes/Report: White Blood Count 23.4 4.8-10.8 X10*3/uL Red Blood Count 4.77 4.20-5.50 X10*6/uL Hemoglobin 14.9 12.0-16.0 g/dl Hematocrit 46.1 37.0-47.0 % Mean Corpuscular Volume 96.6 80.0-98.0 fL Mean Corpuscular Hemoglobin 31.2 27.0-33.0 pg Mean Corpuscular HGB Conc 32.3 31.0-35.0 g/dl Red Cell Distribution Width 13.2 11.0-16.0 % Platelet Count 213 160-400 X10*3/uL Mean Platelet Volume 10.5 9.4-12.3 fL Neutrophils Percent Auto 14.3 45-73 % Imm Gran Pct Auto 0.1 0.0-0.4 % Lymphocytes Percent Auto 82.7 20-40 % Monocytes Percent Auto 2.1 2-11 % Eosinophils Percent Auto 0.5 0-4 % Basophils Percent Auto 0.3 0-2 % NRBC Pct Auto 0.0 0.0-0.2 /100WBC Neutrophils Absolute Auto 3.4 2.0-8.3 x10*3/u L Imm Gran Abs Auto 0.03 0.00-0.03 X10*3/uL Lymphocytes Absolute Auto 19.3 1.2-4.9 X10*3/u L Monocytes Absolute Auto 0.5 0.1-1.2 X10*3/uL Eosinophils Absolute Auto 0.1 0.0-0.4 X10*3/u L Basophils Absolute Auto 0.1 0.0-0.2 X10*3/uL NRBC Abs Auto 0.000 0.0-0.012 X10*3/uL White Blood Count 23.4 4.8-10.8 X10*3/uL Red Blood Count 4.77 4.20-5.50 X10*6/uL Hemoglobin 14.9 12.0-16.0 g/dl Hematocrit 46.1 37.0-47.0 % Mean Corpuscular Volume 96.6 80.0-98.0 fL Mean Corpuscular Hemoglobin 31.2 27.0-33.0 pg Mean Corpuscular HGB Conc 32.3 31.0-35.0 g/dl Red Cell Distribution Width 13.2 11.0-16.0 % Platelet Count 213 160-400 X10*3/uL Mean Platelet Volume 10.5 9.4-12.3 fL Neutrophils Percent Auto 14.3 45-73 % Imm Gran Pct Auto 0.1 0.0-0.4 % Lymphocytes Percent Auto 82.7 20-40 % Monocytes Percent Auto 2.1 2-11 % Eosinophils Percent Auto 0.5 0-4 % Basophils Percent Auto 0.3 0-2 % NRBC Pct Auto 0.0 0.0-0.2 /100WBC Neutrophils Absolute Auto 3.4 2.0-8.3 x10*3/u L Imm Gran Abs Auto 0.03 0.00-0.03 X10*3/uL Lymphocytes Absolute Auto 19.3 1.2-4.9 X10*3/u L Monocytes Absolute Auto 0.5 0.1-1.2 X10*3/uL Eosinophils Absolute Auto 0.1 0.0-0.4 X10*3/u L Basophils Absolute Auto 0.1 0.0-0.2 X10*3/uL NRBC Abs Auto 0.000 0.0-0.012 X10*3/uL CORRECTED REPORT CORRECTED REPORT Comprehensive [place]. Panel Fa st Reviewed date:09/15/2024 07:38:09 AM Interpretation: Performing Lab:[facility], [address] [place] [phone] Notes/Report: Sodium 141 135-145 mmol/L Potassium 4.1 3.3-5.1 mmol/L Chloride 104 96-108 mmol/L Carbon Dioxide 25 22-29 mmol/L Anion Gap 16 12-20 Blood Urea Nitrogen 18 9-16 mg/dL Creatinine 0.82 0.5-1.4 mg/dL Estimated Glomerular Filt Rate > 60 Chronic Kidney Disease: Estimated GFR < 60 mL/min/1.73m2 Severe Kidney Disease: Estimated GFR < 15 mL/min/1.73m2 Glucose Fasting 141 60-99 mg/dL A fasting glucose of 126 mg/dl or greater on more than one occasion is considered diagnostic of diabetes. Calcium 9.7 8.4-10.2 mg/dL Bilirubin Total 0.8 0.0-1.0 mg/dL Aspartate Amino Transferase 39 5-31 U/L Alanine Aminotransferase 66 0-31 U/L Total Protein 6.6 6.5-8.0 g/dL Albumin Level 4.3 3.5-5.0 g/dL Alkaline Phosphatase 92 39-117 U/L Lipid Panel Reviewed date:09/15/2024 07:38:09 AM Interpretation: Performing Lab:[facility], [address] [place] [phone] Notes/Report: Triglycerides 133 <150 mg/dL Desirable Triglyceride: less than 150 mg/dL Borderline High Triglyceride 150-199 mg/dL High Triglyceride: 200-499 mg/dL Very High Triglyceride: greater than or equal to 5OO mg/dL Cholesterol 188 <200 mg/dL Desirable Cholesterol: less than 200 mg/dL Borderline High Cholesterol: 200-239 mg/dL High Cholesterol: greater than 239 mg/dL LDL Cholesterol Calculated 106 <100 mg/dL Desirable LDL: less than 100 mg/dL Near Optimal/Above Optimal LDL: 110-129 mg/dL Borderline High LDL: 130-159 mg/dL High LDL: 160-189 mg/dL Very High LDL: greater than or equal to 190 mg/dL HDL Cholesterol 56 >40 mg/dL Desirable HDL: greater than 40 mg/dL Note: This HDL assay may give artificially low results in patients with liver disease. SLIDE REVIEW Reviewed date:09/15/2024 07:38:09 AM Interpretation: Performing Lab:[facility], [address] [place] [phone] Notes/Report: SLIDE REVIEW VERIFIED Reason For Referral No Information Medications Medication SIG (Take, Route, Frequency, Duration) Notes Start Date End Date Status hydroCHLOROthiazide 12.5 MG 1 capsule in the morning Orally Once a day Active Alendronate Sodium A ctive Aspirin 81 MG 1 tablet Orally Once a day Active Vitamin D 1000 UNIT 1 tablet Orally Once a day Active Calcium 600 MG 1 tablet with food Orally Twice a day Active Simvastatin 20 MG 1 tablet in the even ing Orally Once a day Active Centrum Silver Adult 50+ Orally Active Meclizine HCl 25 MG 1 tablet as needed Orally three times a day 09/03/2020 Active Immunizations Vaccine Route Administration Date Status Comme nts Pneumococcal Unknown 08/10/2015 Administered Influenza IM Intramuscular 07/29/2016 Administered Influenza, quad IM Intramuscular 07/23/2020 Administered PCV20 Unknown 05/13/2023 Administered COVID Pfizer Bivalent Unknown 05/13/2023 Administered PCV13 Unknown 11/16/2017 Administered PPV 23 Unknown 09/14/2018 Administered COVID Pfizer Bivalent Unknown 06/27/2022 Administered PPV 23 Unknown 08/21/2020 Administered SHINGRIX Unknown 01/11/2019 Administered SHINGRIX Unknown 05/12/2019 Administered PPV 23 Unknown 09/29/2016 Administered COVID PFIZER Unknown 08/16/2021 Administered COVID PFIZER Unknown 12/19/2020 Administered RSV vaccine, bivalent, protein subunit RSV prefusion F Unknown 08/12/2023 Administered Social History Tobacco Use: Social History Observation [...] Problem Status W/U Status Risk Notes Problem 03489284 Hyperlipidemia (E78.5) Active confirmed Her total cholesterol is 194. We discussed her diet and nutrition. He will be managed by primary care. Problem 194235954 Overweight (E66.3) Active confirmed Her body mass index is now 31. She has gained 9 pounds I recommended she continue to lose weight at a rate of 1/2 pound per week. Problem Diabetes mellitus without complication (055245000) Diabetes (E11.9) Active confirmed She has been compliant with all of her medications. We discussed her diabetic diet and weight loss. Her fasting gluucose is 141. Problem 60211162 Essential hypertension (I10) Active confirmed Her blood pressure is currently stable and no change in her regimen was made today. Problem 88740782 Glaucoma (H40.9) Active confirmed She will continue her current medications without change. Problem 86920511 Chronic lymphocytic leukemia (C91.10) Active confirmed Her chronic lymphocytic leukemia remains early Stage and stable. Observation alone may continue. There is no adenopathy or splenomegaly. Her constitutional B symptoms. Vital Signs Heart Rate 77 /min 09/21/2024 Temperature 97.2 degrees Fahrenheit 09/21/2024 Blood pressure diastolic 78 mm Hg 09/21/2024 Height 62 in 09/21/2024 Blood pressure systolic 135 mm Hg 09/21/2024 Weight 170 lbs 09/21/2024 BMI 31.09 kg/m2 09/21/2024 Encounters Encounter Location Date Provider Diagnosis Godfrey Conte III, MD [address] [place] [address] [place] [address] 02/11/2024 Godfrey Conte Chronic lymphocytic leukemia C91.10 ; Essential hypertension I10 ; Hyperlipidemia E78.5 and Diabetes E11.9 Godfrey Conte III, MD [address] [place] [address] [place] [address] 09/21/2024 Godfrey Conte Chronic lymphocytic leukemia C91.10 ; Overweight E66.3 ; Essential hypertension I10 ; Hyperlipidemia E78.5 and Diabetes E11.9 Godfrey Conte III, MD [address] [place] [address] [address] [place], [place] [address] 03/28/2024 Godfrey Conte Assessments Encounter Date Diagnosis (ICD Code) Assessment Notes Treat ment Notes Treatment Clinical Notes 02/11/2024 Essential hypertension (ICD-10 - I10) Her blood pressure is currently stable and no change in her regimen was made today. 02/11/2024 Chronic lymphocytic leukemia (ICD-10 - C91.10) Her chronic lymphocytic leukemia remains early Stage and stable. Observation alone may continue. There is no adenopathy or splenomegaly. Her constitutional B symptoms. 09/21/2024 Overweight (ICD-10 - E66.3) Her body mass index is now 31. She has gained 9 pounds I recommended she continue to lose weight at a rate of 1/2 pound per week. 09/21/2024 Chronic lymphocytic leukemia (ICD-10 - C91.10) Her chronic lymphocytic leukemia remains early Stage and stable. Observation alone may continue. There is no adenopathy or splenomegaly. Her constitutional B symptoms. 02/11/2024 Hyperlipidemia (ICD-10 - E78.5) Her total cholesterol is 194. We discussed her diet and nutrition. He will be managed by primary care. 09/21/2024 Essential hypertension (ICD-10 - I10) Her blood pressure is currently stable and no change in her regimen was made today. 02/11/2024 Diabetes (ICD-10 - E11.9) She has been compliant with all of her medications. We discussed her diabetic diet and weight loss. Her fasting gluucose is 138. 09/21/2024 Hyperlipidemia (ICD-10 - E78.5) Her total cholesterol is 194. We discussed her diet and nutrition. He will be managed by primary care. 09/21/2024 Diabetes (ICD-10 - E11.9) She has been compliant with all of her medications. We discussed her diabetic diet and weight loss. Her fasting gluucose is 141. Plan Of Treatment Pending Test Test Name Order Date PROFILE, FASTING (COMPREHENSIVE METABOLI C) 05/11/2023 PROFILE, FASTING (COMPREHENSIVE METABOLI C) 02/11/2024 PROFILE, FASTING (COMPREHENSIVE METABOLI C) 09/14/2023 PROFILE, FASTING (COMPREHENSIVE METABOLI C) 09/21/2024 PROFILE, RANDOM (COMPREHENSIVE METABOLIC ) 01/06/2023 LIPID PANEL 05/11/2023 LDH 01/06/2023 CBC w DIFF 09/21/2024 CBC w DIFF 02/11/2024 CBC w DIFF 05/11/2023 CBC w DIFF 09/14/2023 CBC w DIFF 01/06/2023 BETA-2 MICROGLOBULIN, SERUM 09/21/2024 XR CHEST 2 VIEW PA & LAT 06/30/2018 Lipid Panel 09/14/2023 Lipid Panel 09/21/2024 Lipid Panel 02/11/2024 Next Appt Details Provider Name:Godfrey Conte, 03/22/2025 09:30:00 AM, [address] [place] [address] [address], [address], [place], [address], Insurance Providers Payer Name Payer Address Payer Phone Subscriber Number Group Number Insured Name Patient Relationship to Insured Coverage Start Date Coverage End Date AARP Medicare Complete [address] [address] [place] [address] [phone] [id number] Lenora De Souza Self - patient is the insured MEDICARE NGS [address] [place] [phone] [id number] Lenora De Souza Self - patient is the insured Medical (General) History Medical History History ICD Code glaucoma cll/sll gestational diabetes hypertension hyperlipidemia overweight The patient's mother had type 2 diabetes . Surgical History Surgery Date(Month/Year) T&A No history Hospitalization History Reason Date(Month/Year) pregnancies No history
--- OUTSIDE RECORDS SUMMARY | 2024-12-12 08:49 | XMS_ITS ---
Author Organization Godfrey Conte III, MD Address [address] [place] [address] [address] [place] [facility] [address] Care Team Providers Care Certified Detention Deputy Name Role Phone Yany HINOJOSA, Raji Primary Care Provider Godfrey Lozano [phone] REASON FOR VISIT Follow Up Social History Sex Assigned At : Social History Observation Description Sex Assigned At Female Encounters Encounter Location Date Provider Diagnosis Godfrey Conte III, MD [address] [place] [address] [place] [address] 08/04/2024 Godfrey Conte Plan Of Treatment Next Appt Details Provider Name:Godfrey Conte, 03/22/2025 09:30:00 AM, [address] [place] [address] [address], [place], [address], Progress Notes * Lenora DE SOUZA ADOB:1955 (69 yo F)Acc No.[id number]:08/04/2024 Progress Notes Patient:?Lenora DE SOUZA Provider:?Godfrey Conte MD :1955???Age:69 Y???Sex:Female D ate:08/04/2024 Address:[address] [place], [place] [address] [id number] Pcp:Raji Slade MD Subjective: * Chief Complaints: * ???1. Follow Up. * Medical History:? Objective: * Vitals:? Assessment: Plan: * Treatment: * Images: * The named appointment provid er may or may not be the originator of this progress note, and it is not deemed complete until electronically signed by the appointment provider. Sign off status: Pending * Provider:?Godfrey Conte MD Date:?07/19 Generated for Laya ruano/Dann/Charles on:?12/12/2024 08:48 AM EST
== END 2024-12-12 08:52 | disposition home or self-care (01) ==
PROVIDERS: PCP Internal Medicine; Visit Provider Internal Medicine
DX: I10 Essential (primary) hypertension (principal); E78.5 Hyperlipidemia, unspecified

== ENCOUNTER → 2024-12-12 08:27 | Outpatient (BNVA) | payer MEDICARE, SELFPAY | PROVIDERS: PCP Internal Medicine; Visit Provider Internal Medicine | DX: I10 Essential (primary) hypertension (principal); E78.5 Hyperlipidemia, unspecified | CPT/HCPCS: 96127; 99212 ==

== ENCOUNTER 2024-12-21 08:27 | Outpatient (REF) | payer MEDICARE, SELFPAY ==
--- OUTSIDE RECORDS SUMMARY | 2024-12-21 08:59 | XMS_ITS | Patient Health Record ---
Author Organization Godfrey Conte III, MD Address [address] [place] [address] Care Team Providers Care Lead Java Programmer Name Role Phone Raji Slade MD Primary Care Provider Godfrey Lozano Unavailable [phone] Allergies Allergen (clinical drug ingredient) Drug/Non Drug Allergy documented on EMR Reaction Allergy Type Onset Date Status epinephrine Epinephrine Unknown Drug Allergy Act lorenza Results Component Value Reference Range Notes Complete Blood Count Auto Di ff Reviewed date:01/04/2024 03:49:46 PM Interpretation: Performing Lab:[facility], [address] [place] [phone] Notes/Report: White Blood Count 23.4 4.8-10.8 X10*3/uL [...] 0.0-0.012 X10*3/uL CORRECTED REPORT CORRECTED REPORT Comprehensive [place]. Panel Fa st Reviewed date:01/04/2024 03:49:46 PM Interpretation: Performing Lab:[facility], [address] [place] [phone] Notes/Report: Sodium 142 135-145 mmol/L Potassium 4.0 3.3-5.1 mmol/L Chloride 104 96-108 mmol/L Carbon Dioxide 28 22-29 mmol/L Anion Gap 14 12-20 Blood Urea Nitrogen 22 9-16 mg/dL Creatinine 0.91 0.5-1.4 mg/dL Estimated Glomerular Filt Rate > 60 NOTE: For -Romanian individuals, multiply the result by 1.210. Chronic [...] Panel Reviewed date:01/04/2024 03:49:46 PM Interpretation: Performing Lab:[facility], [address] [place] [phone] Notes/Report: Triglycerides 104 <150 mg/dL Desirable Triglyceride: [...] REVIEW Reviewed date:01/04/2024 03:49:46 PM Interpretation: Performing Lab:[facility], [address] [place] [phone] Notes/Report: SLIDE REVIEW VERIFIED Complete Blood Count Auto Di ff Reviewed date:09/15/2024 07:38:09 AM Interpretation: Performing Lab:[facility], [address] [place] [phone] Notes/Report: White Blood Count 23.4 4.8-10.8 X10*3/uL [...] 0.0-0.012 X10*3/uL CORRECTED REPORT CORRECTED REPORT Comprehensive [place]. Panel Fa st Reviewed date:09/15/2024 07:38:09 AM Interpretation: Performing Lab:[facility], [address] [place] [phone] Notes/Report: Sodium 141 135-145 mmol/L Potassium 4.1 [...] Panel Reviewed date:09/15/2024 07:38:09 AM Interpretation: Performing Lab:[facility], [address] [place] [phone] Notes/Report: Triglycerides 133 <150 mg/dL Desirable Triglyceride: [...] REVIEW Reviewed date:09/15/2024 07:38:09 AM Interpretation: Performing Lab:[facility], [address] [place] [phone] Notes/Report: SLIDE REVIEW VERIFIED Reason For Referral [...] Problem Status W/U Status Risk Notes Problem 04132364 Hyperlipidemia (E78.5) Active confirmed Her total cholesterol is 194. We discussed her diet and nutrition. He will be managed by primary care. Problem 089912257 Overweight (E66.3) Active confirmed Her body mass index is now 31. She has gained 9 pounds I recommended she continue to lose weight at a rate of 1/2 pound per week. Problem Diabetes mellitus without complication (812908191) Diabetes (E11.9) Active confirmed She has been compliant with all of her medications. We discussed her diabetic diet and weight loss. Her fasting gluucose is 141. Problem 74571576 Essential hypertension (I10) Active confirmed Her blood pressure is currently stable and no change in her regimen was made today. Problem 33931103 Glaucoma (H40.9) Active confirmed She will continue her current medications without change. Problem 36698509 Chronic lymphocytic leukemia (C91.10) Active confirmed Her [...] Date Provider Diagnosis Godfrey Conte III, MD [address] [place] [address] [place] [address] 02/11/2024 Godfrey Conte Chronic lymphocytic leukemia C91.10 ; Essential hypertension I10 ; Hyperlipidemia E78.5 and Diabetes E11.9 Godfrey Conte III, MD [address] [place] [address] [place] [address] 09/21/2024 Godfrey Conte Chronic lymphocytic leukemia C91.10 ; Overweight E66.3 ; Essential hypertension I10 ; Hyperlipidemia E78.5 and Diabetes E11.9 Godfrey Conte III, MD [address] [place] [address] [address] [place], [place] [address] 03/28/2024 Godfrey Conte Assessments Encounter Date Diagnosis [...] Order Date PROFILE, FASTING (COMPREHENSIVE METABOLI C) 09/14/2023 PROFILE, FASTING (COMPREHENSIVE METABOLI C) 09/21/2024 PROFILE, FASTING (COMPREHENSIVE METABOLI C) 05/11/2023 PROFILE, FASTING (COMPREHENSIVE METABOLI C) 02/11/2024 PROFILE, RANDOM (COMPREHENSIVE METABOLIC ) 01/06/2023 LIPID PANEL 05/11/2023 LDH 01/06/2023 CBC w DIFF 09/14/2023 CBC w DIFF 01/06/2023 CBC w DIFF 09/21/2024 CBC w DIFF 02/11/2024 CBC w DIFF 05/11/2023 BETA-2 MICROGLOBULIN, SERUM 09/21/2024 XR CHEST 2 VIEW PA & LAT 06/30/2018 Lipid Panel 02/11/2024 Lipid Panel 09/14/2023 Lipid Panel 09/21/2024 Next Appt Details Provider Name:Godfrey Conte, 03/22/2025 09:30:00 AM, [address] [place] [address] [address], [address], [place], [address], Insurance Providers Payer Name Payer Address Payer Phone Subscriber Number Group Number Insured Name Patient Relationship to Insured Coverage Start Date Coverage End Date AARP Medicare Complete [address] [address] [place] [address] [phone] [id number] Lenora De Souza Self - patient is the insured MEDICARE NGS [address] [place] [address] [id number] Lenora De Souza Self - patient is the insured Medical (General) History Medical History History ICD Code glaucoma cll/sll gestational diabetes hypertension hyperlipidemia overweight The patient's mother had type 2 diabetes . Surgical History Surgery Date(Month/Year) T&A No history Hospitalization History Reason Date(Month/Year) pregnancies No history
--- OUTSIDE RECORDS SUMMARY | 2024-12-21 08:59 | XMS_ITS ---
Author Organization Godfrey Conte III, MD Address [address] [place] [address] [place] [address] Care Team Providers Care Buccaro Name Role Phone Yany HINOJOSA, Raji Primary Care Provider Godfrey Lozano [phone] REASON FOR VISIT Follow Up Social History Sex Assigned At : Social History Observation Description Sex Assigned At Female Encounters Encounter Location Date Provider Diagnosis Godfrey Conte III, MD [address] [place] [address] [address] [place] [address] 06/09/2024 Godfrey Conte Plan Of Treatment Next Appt Details Provider Name:Godfrey Conte, 03/22/2025 09:30:00 AM, [address] [place] [address] [address], [place], [address], Progress Notes * Lenora DE SOUZA ADOB:1955 (69 yo F)Acc No.[id number]:06/09/2024 Progress Notes Patient:?Lenora DE SOUZA Provider:?Godfrey Conte MD :1955???Age:69 Y???Sex:Female D ate:06/09/2024 Address:[address] [place], [place] [id number] Pcp:Raji Slade MD Subjective: * Chief Complaints: [...] Conte MD Date:?05/20 Generated for Laya ruano/Dann/Charles on:?12/21/2024 08:59 AM EST
--- OUTSIDE RECORDS SUMMARY | 2024-12-21 08:59 | XMS_ITS ---
Author Organization [facility] Address [address] [place] [address] Care Team Providers Care Cloth Printing Utility Worker Name Role Phone SHERRY KING Primary Care Provider GUSTAVO Mascorro Unavailable [phone] REASON FOR VISIT LR MEDICARE PE Encounters Encounter Location Date Provider Diagnosis [facility] [address] [place] [address] 10/24/2024 GUSTAVO MCDONOUGH Encounter for gynecological examination [...] Follow Up: 1 Year, Reason: Y early Customer Greeter Exam Provider Name:GUSTAVO Dougherty, 01/16/2025 11:00:00 AM, [address], [address], [place], [address], Progress Notes * ENOC FAMADOB:1955 ( 69 yo F)Acc No.[id number]:10/24/2024 PROGRESS NOTES Patient:?LENORA FAM Provider:?GUSTAVO MCDONOUGH MD :1955???Age:69 Y???Sex:Female D ate:10/24/2024 Address:[address] [place], [place] [address] Pcp:SHERRY KING Subjective: * Chief Complaints: * ???1. LR MEDICARE PE. 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 She has the following concerns: ?She has received the [employer] Covid-19 vaccine. ?Relationship status: *partnered for 22 [...] was *11/2021 - at [facility]. She was told she has dense breast tissue. ?She does *not have a family history of colon cancer. She a has had a colonoscopy. The last colonoscopy was 07/15/17. ?The patient does* exercise. She exercises in good weather by walking. * ROS:?Annual Customer Greeter Exam ROS:?Bowel habit changes?denies.?Bladder symptoms?denies.?Vaginal discharge, unusual?denies.?Vaginal itch or odor?denies.?weight or appetite changes?denies.?Chest pains, SOB?denies.?depression?denies.?Breast:?Denies?Breast lump.?Denies?Nipple discharge.?Hematology:?Denies?Swollen glands.?Skin:?Patient denies?changing moles.?Psychiatric:?Denies?Anxiety.? * Medical History:? * Customer Greeter History:?/ Para?4/4.?Sexual activity?not currently sexually active.?Last Pap Smear:?YEARS AGO-DR. BOOKER.?Mammogram:?11/2021 [facility].?LMP and menses?menopause.?History of STD's:?none.?Menarche?9.?Colonoscopy?07/15/2017.?Bone Density:?11/2021.? * OB [...] no acute distress, well developed, well nourished, accounting generalist present in room.?HEAD:?normocephalic, atraumatic.?NECK/THYROID:?neck supple, full range [...] * Follow Up:?1 Year (Reason: Y early Customer Greeter Exam) * Images: Billing Information: * Visit Code:? 44141 Preventive Care Est Pt. Age 65 and over. * Procedure Codes:? * Electronic signature of GUSTAVO MCDONOUGH MD on 12/21/2024 at 08:59 AM EST Sign off status: Pending * Provider:?GUSTAVO MCDONOUGH MD Date:?2024 Generated for Laya ruano/Dann/Cruzitosmitting on:?12/21/2024 08:59 AM EST History and Physical Notes * HPI (History of Present Illness) Category Sub-Category Detail Notes Category Not es Constitutional Lenora is a 69yo who presents for her yearly insole presser exam. She has been in state of good health since her last exam. She has the following concerns: She has received the [employer] Covid-19 vaccine. Relationship status: *partnered for 22 [...] was *11/2021 - at [facility]. She was told she has dense breast tissue. She does *not have a family history of colon cancer. She a has had a colonoscopy. The last colonoscopy was 07/15/17. The patient does* exercise. She exercises in good weather by walking. Examination Category Sub-Category Detail Notes Category Not es General Examination GENERAL APPEARANCE: in no ac chilkoot distress, well developed, well nourished, accounting generalist present in room HEAD: normocephalic, atrau matic [...]
--- OUTSIDE RECORDS SUMMARY | 2024-12-21 08:59 | XMS_ITS ---
Author Organization Godfrey Conte III, MD Address [address] [place] [address] Care Team Providers Care Youth Agent Name Role Phone Raji Slade MD Primary Care Provider Godfrey Lozano Unavailable [phone] Allergies Allergen (clinical drug ingredient) Drug/Non Drug [...] Problem Status W/U Status Risk Notes Problem 737438569 Overweight (E66.3) Active confirmed Her body mass [...] Provider Diagnosis Godfrey Conte III, MD [address] [place] [address] [place] [address] 09/21/2024 Godfrey Conte Chronic lymphocytic leukemia C91.10 [...] labs Provider Name:Godfrey Kohlirne, 03/22/2025 09:30:00 AM, [address] [place] [address] [address] [place] [address], [place], [address], Progress Notes * CHUNEben ALBERTSa ADOB:1955 (69 yo F)Acc No.[id number]:09/21/2024 Progress Notes Patient:?Eben DE SOUZAa Lizabeth Provider:?Godfrey Conte MD :1955???Age:69 Y???Sex:Female D ate:09/21/2024 Address:[address] [place] [address] AL[place] Chang [id number] Pcp:Raji Slade MD Subjective: * Chief Complaints: [...] year??No ?Points?0 ?Interpretation?Negative ???She was born at [facility] in [place]. She is and has 3 sons and 1 daughter. 2 of her sons have diabetes. She has one grandchild who lives in [place]. 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 P[facility] * Collection Date 09/14/2024 [...] Conte MD Date:?01/2024 Generated for Printi bindu/Dann/eTransmitting on:?12/21/2024 08:59 AM EST History and Physical [...]
--- OUTSIDE RECORDS SUMMARY | 2024-12-21 09:00 | XMS_ITS ---
Author Organization Godfrey Conte III, MD Address [address] [place] [address] [address] [place] [address] Care Team Providers Care Church Supervisor Name Role Phone Yany HINOJOSA, Raji Primary Care Provider Godfrey Lozano [phone] REASON FOR VISIT Follow Up Social History Sex Assigned At : Social History Observation Description Sex Assigned At Female Encounters Encounter Location Date Provider Diagnosis Godfrey Conte III, MD [address] [place] [address] [place] [address] 08/04/2024 Godfrey Conte Plan Of Treatment Next Appt Details Provider Name:Godfrey Conte, 03/22/2025 09:30:00 AM, [address] [place] [address] [address] [place], [place], [address], Progress Notes * Lenora DE SOUZA ADOB:1955 (69 yo F)Acc No.[id number]:08/04/2024 Progress Notes Patient:?Lenora DE SOUZA Provider:?Godfrey Conte MD :1955???Age:69 Y???Sex:Female D ate:08/04/2024 Address:[address] [place], [place] [address] [id number] Pcp:Raji Slade MD Subjective: * Chief Complaints: [...] Conte MD Date:?07/19 Generated for Laya ruano/Dann/Charles on:?12/21/2024 08:59 AM EST
--- OUTSIDE RECORDS SUMMARY | 2024-12-21 09:00 | XMS_ITS | Patient Health Record ---
Author Organization [facility] Address [address] [facility] [address] [place] [address] Care Team Providers Care Furnace Clerk Name Role Phone SHERRY KING Primary Care Provider GUSTAVO Mascorro Unavailable [phone] Allergies Allergen (clinical drug ingredient) Drug/Non Drug [...] W/U Status Risk Notes Problem Age-related osteoporosis (096658418) Age-related osteoporosis without current pathological fracture (M81.0) Active confirmed Problem Essential hypertension (60998976) Essential (primary) hypertension (I10) Active confirmed Problem Chronic lymphoid leukemia, disease (36774516) 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
== END 2024-12-21 08:28 | disposition home or self-care (01) ==
LOC: HO.MAMMO 08:27
PROVIDERS: PCP Physician Assistant; Visit Provider Physician Assistant
DX: Z12.31 Encounter for screening mammogram for malignant neoplasm of breast (principal)
CPT/HCPCS: 77063; 77067

== ENCOUNTER → 2024-12-21 08:30 | Outpatient (BNV) | payer MEDICARE, SELFPAY | PROVIDERS: PCP Physician Assistant; Visit Provider Internal Medicine | DX: Z12.31 Encounter for screening mammogram for malignant neoplasm of breast (principal) | CPT/HCPCS: 77063; 77067 ==

== ENCOUNTER 2025-05-15 08:26 | Outpatient (REF) | payer MEDICARE, SELFPAY ==
--- OUTSIDE RECORDS SUMMARY | 2025-03-22 13:15 | XMS_ITS ---
Author Organization Godfrey Conte III, MD Address [address] [place] [address] [place] [address] Care Team Providers Care Office Messenger Helper Name Role Phone DENNIS NEGRON Primary Care Provider Unavailab Godfrey Cam Unavailable [phone] REASON FOR VISIT Follow Up Social History Sex Assigned At : Social History Observation Description Sex Assigned At Female Encounters Encounter Location Date Provider Diagnosis Godfrey Conte III, MD [address] [place] [address] [place] [address] 03/22/2025 Godfrey Conte Plan Of Treatment Next Appt Details Provider Name:Godfrey Conte, 05/22/2025 10:00:00 AM, [address] [place] [address] [place], [address], Progress Notes * Lenora DE SOUZA ADOB:1955 (70 yo F)Acc No.[id number]:03/22/2025 Progress Notes Patient: Traci KATHI Lenora Barone Provider: Jayshree Conte MD :1955 A ge:70 Y S ex:Female Date:03/22/2025 Address:[address] [place], [place] [id number] Pcp:DENNIS NEGRON Subjective: * Chief Complaints: * [...] 0 03/22/2025 Generated for Laya ruano/Dann/Charles on: 0 05/15/2025 08:40 AM EDT
--- OUTSIDE RECORDS SUMMARY | 2025-05-15 08:41 | XMS_ITS | Clinical Summary ---
Author Organization [facility] Address [address] [place] [address] Phone Care Team Providers Care Watermelon Harvesting Supervisor Name Role Phone Raji Slade MD Primary Care Provider [phone] Allergies No known active allergies Medications aspirin 81 mg chewable tablet Take 81 mg by mouth daily. Active calcium carbonate-vitam in D3 1,250 mg (500 mg elemental)-400 units Tab Take 1 tablet by mouth daily. Active simvastatin (ZOCOR) 20 MG tablet Take 20 mg by mouth nightly at bedtime. Active Social History Tobacco Use Types Packs/Day Years Used Date Smoking Tobacco: Never Assessed Education Answer Date Recorded Are you interested in more education? Not on cheli e 02/13/2023 Are you concerned about learning? Not on file 02/13/2023 No 02/13/2023 No 02/13/2023 Digital Access Answer Date Recorded No 03/14/2023 No 03/14/2023 No 03/14/2023 Reliable internet access at home? Not on file 03/14/2023 Device with a working camera? Not on file Comments Unknown Sex and Gender Information Value Date Recorded Sex Assigned at Not on file Legal Sex Female 11:06 AM EST Gender Identity Not on file Sexual Orientation Not on file Last Filed Vital Signs Vital Sign Reading Time Taken Comments Blood Pressure 142/88 10/21/2019 2:32 PM EST Pulse 77 10/21/2019 2:32 PM EST Temperature 36.6 C (97.9 F) 10/21/2019 2:32 PM EST Respiratory Rate - - Oxygen Saturation 98% 10/21/2019 2:32 PM EST Inhaled Oxygen Concentration - - Weight 69.4 kg (153 lb) 10/21/2019 2:32 PM EST Height 157.5 cm (5' 2 ) 10/21/2019 2:32 PM EST Body Mass Index 27.98 10/21/2019 2:32 PM EST Plan of Treatment Health Maintenance Due Date Last Done Comments Adult Td,Tdap Booster 1955 LIPID PANEL 1955 DEPRESSION SCREENING 1965 SMOKING Hx and SMOKELESS TOBACCO SCREENING 1966 HEPATITIS C SCREENING 1971 MAMMOGRAM 1993 COLOGUARD 1998 COLONOSCOPY 1998 COLORECTAL CANCER SCREENING 1998 FIT TEST 1998 FOBT 1998 SIGMOIDOSCOPY 1998 VIRTUAL COLONOSCOPY 1998 OSTEOPOROSIS SCREENING INITIAL (ONE-TIME) 2018 COVID-19 VACCINE (2 - 2023- season) 2024 12/19/2020 RSV VACCINE (1 - 1-dose 75+ series) 01/13/2028 ZOSTER VACCINES Completed 05/12/2019, 01/11/2019 PNEUMOCOCCAL VACCINES (50+ years) Completed 08/21/2020, 09/14/2018, 11/16/2017, Additional history exists HEPATITIS A VACCINES Aged Out No long er eligible based on patient's age to complete this topic HIB VACCINES Aged Out No longer eligi ble based on patient's age to complete this topic MENINGOCOCCAL VACCINES (ACWY) Aged Out No longer eligible based on patient's age to complete this topic MENINGOCOCCAL VACCINES (B) Aged Out N o longer eligible based on patient's age to complete this topic Medical Devices Not on file [place] [address] [address] [place] [address] MEDICARE REPLACEMENT MEDICARE REPLACEMENT MEDICARE REPLACEMENT MEDICARE REPLACEMENT MEDICARE REPLACEMENT MEDICARE REPLACEMENT MEDICARE RE[place]ACEMENT [place] [address] [place] [address] MEDICARE REPLACEMENT Care Teams Watermelon Harvesting Supervisor Relationship Specialty Start Date End Date Raji Slade MD [address] [place] [address] [place] [address] PCP - General Internal Medicine 09/05/19 Additional Source Comments The information contained in this document represents components of the legal health record. It is not the complete legal health record.[facility]
--- OUTSIDE RECORDS SUMMARY | 2025-05-15 08:41 | XMS_ITS | Patient Health Record ---
Author Organization [facility] Address [address] [place] [address] Care Team Providers Care Grain Mill Worker Name Role Phone DENNIS RODRIGUEZ Primary Care Provider GUSTAVO Neri Unavailable [phone] Allergies Allergen (clinical drug ingredient) Drug/Non Drug Allergy documented on EMR Reaction Allergy Type Onset Date Status epinephrine Epinephrine TACHYCARDIA Drug Allergy A ctive Reason For Referral No Information Medications Medication SIG (Take, Route, Frequency, Duration) Notes Start Date End Date Status hydroCHLOROthiazide 12.5 MG 1 capsule in the morning Orally Once a day; Duration: 30 day(s) Active Simvastatin 20 MG 1 tablet in the even ing Orally Once a day; Duration: 30 day(s) Active Social History Tobacco Use: [...] W/U Status Risk Notes Problem Age-related osteoporosis (979781469) Age-related osteoporosis without current pathological fracture (M81.0) Active confirmed Problem Essential hypertension (09248973) Essential (primary) hypertension (I10) Active confirmed Problem Chronic lymphoid leukemia, disease (80614336) 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) Active confirmed Problem Hyperlipidemia (77502548) Hyperlipidemia, unspecified (E78.5) Active confirmed Problem Post-traumatic stress disorder, unspecified (F43.10) Active confirmed Vital Signs Temperature 98.0 degrees Fahrenheit 01/16/2025 Blood pressure diastolic 86 mm Hg 01/16/2025 Height 61 in 01/16/2025 Blood pressure systolic 152 mm Hg 01/16/2025 Weight 168 lbs 01/16/2025 BMI 31.74 kg/m2 01/16/2025 Encounters Encounter Location Date Provider Diagnosis [facility] [address] [place] [address] 01/16/2025 GUSTAVO MCDONOUGH Encounter for gynecological examination (general) (routine) without abnormal findings Z01.419 and Encounter for screening mammogram for malignant neoplasm of breast Z12.31 Assessments Encounter Date Diagnosis (ICD Code) Assessment Notes Treatment Notes Treatment Clinical Notes Section Notes 01/16/2025 Encounter for gynecological examination (general) (routine) without abnormal findings (ICD-10 - Z01.419) During the visit, the following areas of concern were addressed: Discussed stopping cervical cancer screening as per ASCCP guidelines. Advised continued routine pelvic exams. Patient encouraged to increase her level of exercise. SBE technique encouraged/tau ght. Patient reminded when annual mammogram is due. Patient encouraged to keep colon screening up to date. 01/16/2025 Encounter for screening mammogram for malignant neoplasm of breast (ICD-10 - Z12.31) Plan Of Treatment Pending Test Test Name Order Date MM Digital Screening Mammogram 3D 2022 MM Digital Screening Mammogram 3D 2024 Insurance Providers Payer Name Payer Address Payer Phone Subscriber Number Group Number Insured Name Patient Relationship to Insured Coverage Start Date Coverage End Date [employer] [address] [place] [address] [phone] [id number] JOSTIN FAM Self - patient is the insured 4 Medical (General) History Medical History History ICD Code Essential (primary) hypertension I10 Age-related osteoporosis without current pathological fracture M81.0 Hyperlipidemia, unspecified E78.5 Chronic lymphocytic leukemia of B-cell t ype not having achieved remission C91.10 Post-traumatic stress disorder, unspecif ied F43.10 Surgical History Surgery Date(Month/Year) BX OF TEMPORAL ARTERY 01/2019 [facility]ILDBIR[facility] X 4 Hospitalization History Reason Date(Month/Year) SEE SURGICAL HX
[2025-05-15 09:23] LABS: Hematocrit 45.5 % (37.0-47.0); Hemoglobin 14.9 g/dl (12.0-16.0); Imm Gran Abs Auto 0.03 X10*3/uL (0.00-0.03); Imm Gran Pct Auto 0.1 % (0.0-0.4); MANUAL DIFF FLAG SCAN; Mean Corpuscular HGB Conc 32.7 g/dl (31.0-35.0); Mean Corpuscular Hemoglobin 31.7 pg (27.0-33.0); Mean Corpuscular Volume 96.8 fL (80.0-98.0); NRBC Abs Auto 0.000 X10*3/uL (0.0-0.012); NRBC Pct Auto 0.0 /100WBC (0.0-0.2); Platelet Count 199 X10*3/uL (160-400); Red Blood Count 4.70 X10*6/uL (4.20-5.50); SCAN SMEAR FLAG 1; White Blood Count 22.3 X10*3/uL (4.8-10.8)
[2025-05-15 09:24] LABS: Lymphocytes Absolute Auto 18.5 X10*3/uL (1.2-4.9)
[2025-05-15 09:52] LABS: Alanine Aminotransferase 63 U/L (0-31); Albumin Level 4.7 g/dL (3.5-5.0); Alkaline Phosphatase 106 U/L (39-117); Anion Gap 10 (12-20); Aspartate Amino Transferase 42 U/L (5-31); Blood Urea Nitrogen 13 mg/dL (9-16); Calcium 9.4 mg/dL (8.4-10.2); Carbon Dioxide 28 mmol/L (22-29); Chloride 108 mmol/L (96-108); Cholesterol 178 mg/dL (<200); Estimated Glomerular Filt Rate > 60; HDL Cholesterol 54 mg/dL (>40); Potassium 4.2 mmol/L (3.3-5.1); Sodium 142 mmol/L (135-145); Total Protein 6.9 g/dL (6.5-8.0); Triglycerides 120 mg/dL (<150)
== END 2025-05-15 08:27 | disposition home or self-care (01) ==
LOC: HO.LAB 08:26
PROVIDERS: PCP Physician Assistant; Referring Provider Physician Assistant; Visit Provider Internal Medicine Medical Oncology
DX: C91.10 Chronic lymphocytic leukemia of B-cell type not having achieved remission (principal); I10 Essential (primary) hypertension; E11.9 Type 2 diabetes mellitus without complications; E78.5 Hyperlipidemia, unspecified
CPT/HCPCS: 36415; 80053; 80061; 82232; 85025

== ENCOUNTER 2025-05-17 10:52 | Outpatient (AMB) | payer MEDICARE, SELFPAY ==
--- OUTSIDE RECORDS SUMMARY | 2025-03-22 13:15 | XMS_ITS ---
Author Organization Godfrey Conte III, MD Address [address] [place] [address] [place] [address] Care Team Providers Care Polls Or Surveys Interviewer Name Role Phone DENNIS NEGRON Primary Care Provider Unavailab Godfrey Cam Unavailable [phone] REASON FOR VISIT Follow Up Social History Sex Assigned At : Social History Observation Description Sex Assigned At Female Encounters Encounter Location Date Provider Diagnosis Godfrey Conte III, MD [address] [place] [address] [place] [address] 03/22/2025 Godfrey Conte Plan Of Treatment Next Appt Details Provider Name:Godfrey Conte, 05/22/2025 10:00:00 AM, [address] [place] [address] [place], [address], Progress Notes * Lenora DE SOUZA ADOB:1955 (70 yo F)Acc No.[id number]:03/22/2025 Progress Notes Patient: Traci KATHI Lenora Barone Provider: Jayshree Conte MD :1955 A ge:70 Y S ex:Female Date:03/22/2025 Address:[address] [place], [place] [address] [id number] Pcp:DENNIS NEGRON Subjective: * Chief Complaints: * [...] 03/22/2025 Generated for Laya ruano/Dann/Charles on: 0 05/17/2025 11:53 AM EDT
--- NOTE | 2025-05-17 11:09 | A.OFFPC_ITS ---
Vital Signs 05/17/25 11:11 Height 5 ft 1.25 in Weight 169 lb 8 oz BMI 31.8 BP 124/76 Blood Pressure Location Lt brachial Position Sitting Pulse 77 Pulse Source Pulse Oximeter Temp 97.1 F Temp Source Temporal Artery Scan Pulse Oximetry (%) 95 Oxygen Delivery Method Room Air Intake Visit Reasons: DE Dr Slade/ referral requested Intake Note: Patient is here today for DE from Dr Slade. 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: No Medical Office Manager: Not Required per policy Accompanied by: Self / Same As Patient Allergies epinephrine (From Epifrin) Allergy (Intermediate, Verified 05/17/25 11:27) tacycardia procaine (From NOVOCAIN) Allergy (Unknown, Verified 05/17/25 11:27) TACHYCARDIA FROM NOVOCAINE Medication List - Last Reconciled 05/17/25 by Ted Medina PA-C aspirin 81 mg PO DAILY calcium carbonate (Calcium 600) 600 mg PO DAILY cholecalciferol (vitamin D3) 50 mcg PO DAILY hydrochlorothiazide 12.5 mg PO DAILY 90 days multivitamin (Daily Multi-Vitamin tablet) 1 tab PO DAILY simvastatin 20 mg PO DAILY Tobacco use date assessed: 05/17/25 Fall risk assessment: No Falls in past year Last assessed Fall Risk: 05/17/25 Dental Screening Dental Screen Date: 12/12/[address] Slade/ referral requested HPI Details Patient is a 70-year-old female here today for a transfer of care visit. Previous PCP was Dr. Slade. Patient has a past medical history significant for hyperlipidemia, chronic lymphocytic leukemia, hypertension and osteoporosis. CLL : The patient has a history of chronic leukemia, which is being monitored without current symptoms. She was initially diagnosed following an eye exam approximately ten years ago. The condition is considered chronic and not life- threatening, and she is unable to donate blood or organs due to this diagnosis. Osteoporosis: The patient has been diagnosed with osteopenia, which was previously osteoporosis. Medication adjustments have reduced her risk of fractures, and she is not currently seeing a specialist for this condition. She is managing hyperlipidemia and hypertension with medication. Recent lab work indicated elevated liver enzymes, possibly due to fatty liver disease, which may be related to weight gain and medication side effects. Her cholesterol levels are within the normal range. PTSD: The patient reports a history of post-traumatic stress disorder (PTSD), exacerbated by family stressors. She has previously been on Zoloft but discontinued it due to side effects. She is considering non-pharmacological interventions and therapy for management. Elevated fasting blood sugars: There is a suspicion of type 2 diabetes mellitus due to elevated fasting blood sugar levels, attributed to weight gain and stress-related eating. The patient has a family history of diabetes, and she is considering lifestyle modifications to manage her blood sugar levels. LBBB: A left bundle branch block was identified during a previous cardiac evaluation, but it is not considered serious. Her heart function is reported to be normal. Laboratory Tests 08/05/24 09/14/24 05/15/25 08:02 08:24 08:40 WBC 24.4 H 23.4 H 22.3 H Fasting Glucose 141 H 153 H AST 42 H ALT 63 H LDL Cholesterol, C alc 106 H 100 H PFSH Medical History Incomplete right bundle branch block (RBBB) Post-menopausal Hypertension Vertigo Osteoarthritis of hands, bilateral Lymphoma Surgical History History of surgery History of colonoscopy History of bone marrow biopsy (~2015) Bilateral cataracts (~2018) History of tonsillectomy (~1953) Family History Father Liver cancer Hypertension Mother Ovarian cancer Sister Mental health disorder Social History (Updated 05/17/25 @ 11:45 by Ted Medina PA-C) Household Members: Significant Other Household Members Other:: [place] Housing: House Alcohol intake: never Patient Tobacco Use Status: Never used Tobacco Tobacco use type: Cigarette e-Cigarette/Vaping Use: Never Used Second Hand Smoke Exposure: No service: No Current occupational status: retired 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 1. Little interest or pleasure in doing things: not at all 2. Feeling down, depressed, or hopeless: not at all 3. Trouble falling or staying asleep, or sleeping too much: several days 4. Feeling tired or having little energy: not at all 5. Poor appetite or overeating: several days 6. Feeling bad about yourself - or that you are a failure or have let yourself or your family down: not at all 7. Trouble concentrating on things, such as reading the newspaper or watching television: not at all 8. Moving or speaking so slowly that other people could have noticed. Or the opposite - being so fidgety or restless that you have been moving around a lot more than usual: not at all 9. Thoughts that you would be better off or of hurting yourself in some way: not at all Total score: 2 Depression Screening Interpretation: Positive Depression Screening Follow-up: Existing condition and Declines treatment Depression Screening Done: Yes 51995 - PHQ-9 Billing: Yes Source: Developed by Drs. Godfrey Perry, Kim Ga, Gino Duckworth and colleagues, with an educational conchis from [employer]. Thrive Questionnaire Date Thrive assessed: 12/12/24 I am a: Patient What is your living situation today?: I have a steady place to live Within the past 12 months, did the food you bought not last and you didn't have the money to get more?: Never true Within the past 12 months, did you worry whether your food would run out before you got money to buy more?: Never true Do you have trouble paying for medicines?: No Do you have trouble getting transportation to medical appointments?: No Do you have trouble paying your heating and electricity bill?: No Do you have trouble taking care of your child, family member or friend?: No Do you have trouble with day-to-day activities such as bathing, preparing meals, shopping, managing finances, etc.?: No Are you currently unemployed and looking for a job?: No Are you interested in more education?: No Please select the resources that you would like help with: None Currently or been in a relationship where the following occur: No concerns reported THRIVE Score: 0 AUDIT C Alcohol Use Questionnaire (AUDIT-C) 1. How often do you have a drink containing alcohol?: Monthly or less Total Score: 1 CARTER-7 AMB Questionnaire CARTER-7 Date CARTER - 7 assessed: 05/17/25 Feeling nervous, anxious, or on edge: 1 = Several days Not being able to stop or control worryin = Several days Worrying too much about different things: 0 = Not at all Trouble relaxin = Not at all Being so restless that it is hard to sit still: 0 = Not at all Becoming easily annoyed or irritable: 0 = Not at all Feeling afraid as if something awful might happen: 0 = Not at all Total CARTER-7 score (0-4 normal; 5-9 mild; 10-14 moderate; 15-21 severe): 2 Source: Developed by Drs. Godfrey Perry, Kim Ga, Gino Duckworth and colleagues, with an educational conchis from [employer]. CARTER-7 Assessment Billing CARTER-7 Assessment Tool: CARTER-7 Assessment 90063 Review of Systems Const Denies headache(s) Eyes Denies loss of vision ENT Denies vertigo, Denies dizziness, Denies headache(s) and Denies sore throat Card Denies chest pain, Denies leg edema and Denies lightheadedness Resp Denies cough, Denies hemoptysis and Denies wheezing GI Denies abdominal pain, Denies melena, Denies constipation, Denies diarrhea and Denies vomiting Denies urinary frequency, Denies dysuria and Denies urinary urgency Musc Denies arthralgias, Denies joint swelling, Denies numbness and Denies tingling Neuro Denies Abnormal speech present, Denies behavioral changes, Denies vertigo, Denies dizziness, Denies headache(s), Denies loss of vision, Denies memory loss, Denies numbness and Denies tingling Psych Denies anxiety, Denies behavioral changes, Denies depression, Denies memory loss and Denies panic attacks Pietro/Lymph Denies easy bleeding and Denies easy bruising Aller/Immun Denies wheezing Physical exam (Primary Care) Vital Signs: Last Vital Signs Temp 97.1 F 05/17/25 11:11 Pulse 77 05/17/25 11:11 BP 124/76 05/17/25 11:11 Pulse Ox 95 05/17/25 11:11 Oxygen Delivery Method Room Air 05/17/25 11:11 BMI result Body Mass Index 31.8 Tobacco/Smoking Status: Tobacco use Status Tobacco use date assessed 05/17/25 05/17/25 11:16 Patient Tobacco Use Status Never used Tobacco 05/17/25 11:45 Tobacco use type Cigarette 05/17/25 11:45 e-Cigarette/Vaping Use Never Used 05/17/25 11:45 PHQ-9: PHQ-9 Score PHQ-9: Total score 2 05/17/25 11:31 Depression Screening Interpretation: Positive Depression Screening Follow-up: Existing condition and Declines treatment Thrive Assessment: Date of Thrive Assessment Date Thrive assessed 12/12/24 05/17/25 11:09 Currently or been in a relationship where the following occur: No concerns reported Const General: healthy appearing, no acute distress, alert and awake Nutritional Appearance: well nourished Orientation/consciousness: oriented to person, oriented to place and oriented to time HENMT Ears: TM's normal bilaterally General nose exam: Normal nasal mucous membranes and turbinates present Eyes Conjunctivae: conjunctivae normal Sclerae: sclerae normal Pupils: Equal, round and reactive pupils present Neck Neck: Yes no lymphadenopathy and Yes no JVD Thyroid: Thyroid normal Carotids: no bruits Resp Effort & Inspection: normal respiratory effort and not tachypneic Auscultation: no crackles, no rales, no rhonchi and no wheezes Cardio Rate: regular rate Rhythm: regular rhythm Heart sounds: no murmurs and normal S1 and S2 GI Palpation (GI): Soft to palpation, nontender, no hepatomegaly and no splenomegaly Auscultation: normal bowel sounds Skin General skin exam: no rashes or lesions noted and dry skin Neuro General: oriented to person, oriented to place and oriented to time Cranial nerves: Yes Equal, round and reactive pupils present Speech: No Abnormal speech present Gait exam (Neuro): Normal gait present Motor exam (neuro): no tremor noted Extrem Right upper extremity: full ROM Left upper extremity: full ROM Right lower extremity: full ROM; no edema Left lower extremity: full ROM; no edema Psych Mental Status: mental status grossly normal Speech and movement: Normal speech and movement present Affect: normal affect Attitude: cooperative Thought process: Normal thought process present Coding Level of Care Code Est Pt Level 4 (52870) Diagnoses Post traumatic stress disorder F43.10 Hypertension, unspecified type I10 Hypertension type: unspecified Chronic lymphocytic leukemia C91.10 Hyperlipidemia, unspecified hyperlipidemia type E78.5 Hyperlipidemia type: unspecified Elevated fasting blood sugar R73.01 Elevated liver enzymes R74.8 Class 1 obesity E66.811 Additional Codes PHQ-9 - 23403 - PHQ-9 Billing: Yes ([id number]) CARTER-7 Assessment Billing - CARTER-7 Assessment Tool: CARTER-7 Assessment 08740 ([id number]) Assessment & Plan Assessment & Plan (1) Post traumatic stress disorder: Code(s): F43.10 - Post-traumatic stress disorder, unspecified Category: Medical Plan: The patient is advised to pursue non-pharmacological interventions and therapy for PTSD management. She is considering returning to therapy for further support. (2) Hypertension: Code(s): I10 - Essential (primary) hypertension Category: Medical Qualifiers: Hypertension type: unspecified Qualified Code(s): I10 - Essential (primary) hypertension Plan: Patient's blood pressure acceptable today in office. Will continue her current antihypertensive medication with goal blood pressure to remain below 140/90 (3) Chronic lymphocytic leukemia: Code(s): C91.10 - Chronic lymphocytic leukemia of B-cell type not having achieved remission Category: Medical Plan: The patient will continue monitoring her chronic leukemia with regular follow- ups, as it is currently asymptomatic and not life-threatening. No specific treatment is required at this time. (4) Hyperlipidemia: Code(s): E78.5 - Hyperlipidemia, unspecified Category: Medical Qualifiers: Hyperlipidemia type: unspecified Qualified Code(s): E78.5 - Hyperlipidemia, unspecified Plan: The patient will continue her cholesterol medication, as her levels are within the normal range. Monitoring of liver enzymes will continue to assess for potential side effects. (5) Elevated fasting blood sugar: Code(s): R73.01 - Impaired fasting glucose Category: Medical Plan: The patient will undergo further evaluation with A1c testing to confirm the diagnosis of type 2 diabetes mellitus. Lifestyle modifications, including dietary changes and weight loss, are recommended to manage blood sugar levels. (6) Elevated liver enzymes: Code(s): R74.8 - Abnormal levels of other serum enzymes Category: Medical Plan: The patient will have a liver ultrasound to evaluate for fatty liver disease. Dietary modifications to reduce fat intake are recommended. (7) Class 1 obesity: Code(s): E66.811 - Obesity, class 1 Category: Medical Plan: Patient does understand her BMI is over 30 will continue working on better eating habits to reduce her weight. Orders: Orders Microalbumin, Random (w Creat) 05/17/25 I10 - Essential (primary) hypertension Comprehensive Robinson. Panel Fast 05/17/25 E78.5 - Hyperlipidemia, unspecified Lipid Panel 05/17/25 E78.5 - Hyperlipidemia, unspecified Complete Blood Count no Diff 05/17/25 E78.5 - Hyperlipidemia, unspecified Hemoglobin A1c 05/17/25 R73.01 - Impaired fasting glucose US abdomen complete 05/17/25 R74.8 - Abnormal levels of other serum enzymes Referrals Hematology & Oncology Referral C91.10 - Chronic lymphocytic leukemia of B-cell type not having achieved remission Patient Instructions: Goal: Blood pressure to remain below 140/90, LDL to remain below 100 Barriers: Adherence to physical activity and healthy eating habits
[2025-05-17 11:11] VITALS: BP 124/76; PULSE 77; TEMP 36.2; O2SAT 95; BMI 31.8
--- OUTSIDE RECORDS SUMMARY | 2025-05-17 11:54 | XMS_ITS | Patient Health Record ---
Author Organization [facility] Address [address] [place] [id number] Care Team Providers Care Health Unit Coordinator Name Role Phone DENNIS RODRIGUEZ Primary Care Provider GUSTAVO Neri Unavailable [phone] Allergies Allergen (clinical drug ingredient) Drug/Non Drug [...] W/U Status Risk Notes Problem Age-related osteoporosis (024070290) Age-related osteoporosis without current pathological fracture (M81.0) Active confirmed Problem Essential hypertension (30662733) Essential (primary) hypertension (I10) Active confirmed Problem Chronic lymphoid leukemia, disease (04253498) 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) Active confirmed Problem Hyperlipidemia (90205123) Hyperlipidemia, unspecified (E78.5) Active confirmed Problem Post-traumatic stress disorder (17645432) Post-traumatic stress disorder, unspecified (F43.10) Active confirmed Vital Signs Temperature 98.0 degrees Fahrenheit 01/16/2025 Blood pressure diastolic 86 mm Hg 01/16/2025 Height 61 in 01/16/2025 Blood pressure systolic 152 mm Hg 01/16/2025 Weight 168 lbs 01/16/2025 BMI 31.74 kg/m2 01/16/2025 Encounters Encounter Location Date Provider Diagnosis Total [employer] [facility] [address] [place] [address] 01/16/2025 GUSTAVO MCDONOUGH Encounter for gynecological examination [...] Date MM Digital Screening Mammogram 3D 2024 MM Digital Screening Mammogram 3D 2022 Insurance Providers Payer Name Payer Address Payer Phone Subscriber Number Group Number Insured Name Patient Relationship to Insured Coverage Start Date Coverage End Date [employer] [address] [place] [address] [phone] [id number] JOSTIN FAM Self - patient is the [...]
--- OUTSIDE RECORDS SUMMARY | 2025-05-17 11:54 | XMS_ITS | Clinical Summary ---
Author Organization [facility] Address [address] [place] [id number] Phone Care Team Providers Care Product Applications Engineer Name Role Phone Raji Slade MD Primary Care Provider [phone] Allergies No known active allergies Medications aspirin [...] topic Medical Devices Not on [place] [address] [place] [address] MEDICARE REPLACEMENT MEDICARE REPLACEMENT MEDICARE REPLACEMENT MEDICARE REPLACEMENT MEDICARE REPLACEMENT MEDICARE REPLACEMENT [place] [address] [place] [address] [place] [address] MEDICARE REPLACEMENT Care Teams Product Applications Engineer Relationship Specialty Start Date End Date Raji Slade MD [address] [place] [address] [place] [address] PCP - General Internal Medicine 09/05/19 Additional Source Comments The information contained in this document represents components of the legal health record. It is not the complete legal health record.[facility]
== END 2025-05-17 11:58 | disposition home or self-care (01) ==
LOC: HO.HMCH 10:52
PROVIDERS: PCP Physician Assistant; Visit Provider Physician Assistant
DX: I10 Essential (primary) hypertension (principal); C91.10 Chronic lymphocytic leukemia of B-cell type not having achieved remission; E66.811 Obesity, class 1; Z68.31 Body mass index [BMI] 31.0-31.9, adult; F43.10 Post-traumatic stress disorder, unspecified; E78.5 Hyperlipidemia, unspecified; R73.01 Impaired fasting glucose; R74.8 Abnormal levels of other serum enzymes

== ENCOUNTER → 2025-05-17 10:52 | Outpatient (BNVA) | payer MEDICARE, SELFPAY | PROVIDERS: PCP Physician Assistant; Visit Provider Physician Assistant | DX: I10 Essential (primary) hypertension (principal); E78.5 Hyperlipidemia, unspecified; M81.0 Age-related osteoporosis without current pathological fracture; F43.10 Post-traumatic stress disorder, unspecified; I44.7 Left bundle-branch block, unspecified; C91.10 Chronic lymphocytic leukemia of B-cell type not having achieved remission; R74.8 Abnormal levels of other serum enzymes; E66.811 Obesity, class 1; Z68.31 Body mass index [BMI] 31.0-31.9, adult; Z79.899 Other long term (current) drug therapy | CPT/HCPCS: 96127; 99212 ==

== ENCOUNTER 2025-08-19 07:56 | Outpatient (REF) | payer MEDICARE, SELFPAY ==
--- OUTSIDE RECORDS SUMMARY | 2024-03-28 09:18 | XMS_ITS ---
Author Organization Godfrey Conte III, MD Address [address] [place] [address] [place] [address] Care Team Providers Care Pick Up Attendant Name Role Phone DENNIS NEGRON Primary Care Provider UnavailDr. Godfrey Valadez III Unavailable REASON FOR VISIT Balance Social History Sex Assigned At : Social History Observation Description Sex Assigned At Female Encounters Encounter Location Date Provider Diagnosis Godfrey Conte III, MD [address] [place] [address] [place] [address] 03/28/2024 Godfrey Conte Plan Of Treatment Next Appt Details Provider Name:Godfrey Conte , 11/27/2025 10:00:00 AM, [address] [place] [address] [place], [address], Progress Notes * Lenora DE SOUZA ADOB:1955 (69 yo F)Acc No.[id number]:03/28/2024 Patient: Lenora Holt :1955 A ge:69 Y S ex:Female Address:[address] [place], [place] [address], [address] * true * Date: Generated for Printi ng/Faxing/eTransmitting on: 10/19/2024 08:00 AM EDT
--- OUTSIDE RECORDS SUMMARY | 2024-06-09 09:30 | XMS_ITS ---
Author Organization Godfrey Conte III, MD Address [address] [place] [address] [address] [place] [facility] [place] [address] Care Team Providers Care Dent Remover Name Role Phone DENNIS NEGRON Primary Care Provider Unavailab Dr. Godfrey Cam III Unavailable REASON FOR VISIT Follow Up Social History Sex Assigned At : Social History Observation Description Sex Assigned At Female Encounters Encounter Location Date Provider Diagnosis Godfrey Conte III, MD [address] [place] [address] [place] [address] 06/09/2024 Godfrey Conte Plan Of Treatment Next Appt Details Provider Name:Godfrey Conte , 11/27/2025 10:00:00 AM, [address] [place] [address] [place], [address], Progress Notes * Lenora DE SOUZA ADOB:1955 (70 yo F)Acc No.[id number]:06/09/2024 Progress Notes Patient: Traci NISHLenora WHITE Lizabeth Provider: Jayshree Conte MD :1955 A ge:69 Y S ex:Female Date:06/09/2024 Address:[address] [place], [place] [address] [id number] Pcp:DENNIS NEGRON Subjective: * Chief Complaints: * [...] 0 06/09/2024 Generated for Laya ruano/Dann/Charles on: 10/19/2024 08:00 AM EDT
--- OUTSIDE RECORDS SUMMARY | 2024-08-04 09:30 | XMS_ITS ---
Author Organization Godfrey Conte III, MD Address [address] [place] [address] [address] VARGH[address] [facility] [place] [address] Care Team Providers Care Straight Cutter Machine Name Role Phone DENNIS NEGRON Primary Care Provider Unavailab Dr. Godfrey Cam III Unavailable REASON FOR VISIT Follow Up Social History Sex Assigned At : Social History Observation Description Sex Assigned At Female Encounters Encounter Location Date Provider Diagnosis Godfrey Conte III, MD [address] [place] [address] [place] [address] 08/04/2024 Godfrey Conte Plan Of Treatment Next Appt Details Provider Name:Godfrey Conte , 11/27/2025 10:00:00 AM, [address] [place] [address] [place], [address], Progress Notes * Lenora DE SOUZA ADOB:1955 (70 yo F)Acc No.[id number]:08/04/2024 Progress Notes Patient: Lenora SPEARS Lizabeth Provider: Jayshree Conte MD :1955 A ge:69 Y S ex:Female Date:08/04/2024 Address:[address] [place], [place] [address] [id number] Pcp:DENNIS NEGRON Subjective: * Chief Complaints: * [...] Jayshree Conte MD Date: Generated for Laya ruano/Dann/Charles on: 10/19/2024 08:01 AM EDT
--- OUTSIDE RECORDS SUMMARY | 2024-09-21 05:30 | XMS_ITS ---
Author Organization Godfrey Conte III, MD Address [address] [place] [place] [address] Care Team Providers Care Oracle Technical Developer Name Role Phone DENNIS NEGRON Primary Care Provider Unavailab Dr. Godfrey Cam III Unavailable [phone] Allergies Allergen (clinical drug ingredient) Drug/Non Drug [...] Problem Status W/U Status Risk Notes Problem [id number] Overweight (E66.3) Active confirmed Her body mass [...] Date Provider Diagnosis Godfrey Conte III, MD [address] [place] [address] [place] [address] 09/21/2024 Godfrey Conte Chronic lymphocytic leukemia C91.10 [...] Provider Name:Godfrey Conte , 11/27/2025 10:00:00 AM, [address] [place] [address], [place] [address], [place], [address], Progress Notes * Lenora DE SOUZA ADOB:1955 (69 yo F)Acc No.[id number]:09/21/2024 Progress Notes Patient: Lenora SPEARS Provider: Jasyhree Conte MD :1955 A ge:69 Y S ex:Female Date:09/21/2024 Address:[address] [place] [address] [id number] Pcp:Raji Slade MD Subjective: * Chief Complaints: [...] N atilio S he was born at [facility] in [place]. She is and has 3 sons and 1 daughter. 2 of her sons have diabetes. She has one grandchild who lives in [place]. 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 Pane l Fast * Collection Date 09/14/2024 [...] Date: 11/22/2023 Generated for Laya ng/Dann/Cruzitosmitting on: 10/19/2024 08:01 AM EDT History and Physical Notes * HPI (History of Present Illness) Category Sub-Category Detail Notes COVID-19 Screening Questions Have you had any new onset fever, chills, cough, congestion, sore throat, shortness of breath, muscle aches?: No Have you been exposed to the virus withi n the last 10 days?: No Have you travelled internationally in [facility] last 10 days?: No Have you been [...]
--- OUTSIDE RECORDS SUMMARY | 2024-10-24 04:00 | XMS_ITS ---
Author Organization [employer] Address [address] [facility] [address] [place] [address] Care Team Providers Care Public Transit Bus Driver Name Role Phone DENNIS RODRIGUEZ Primary Care Provider GUSTAVO Neri Unavailable [phone] REASON FOR VISIT LR MEDICARE PE Encounters Encounter Location Date Provider Diagnosis [facility] [address] [address] 10/24/2024 GUSTAVO MCDONOUGH Encounter for gynecological examination [...] Follow Up: 1 Year, Reason: Y early Supervisor Cytology Exam Progress Notes * ABARM FAMB:1955 ( 70 yo F)Acc No.[id number]:10/24/2024 PROGRESS NOTES Patient: LENORA SPEARS Provider: Chan MCDONOUGH MD :1955 A ge:69 Y S ex:Female Date:10/24/2024 Address:[address] [place], [place] [id number] Pcp:CUHN HAIDER Subjective: * Chief Complaints: * 1 . LR MEDICARE PE. 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 S he has been in state of good health since her last exam. She has the following concerns: S he has received the [employer] Covid-19 vaccine. R elationship status: *partnered for [...] was *11/2021 - at [facility]. She was told she has dense breast tissue. S he does *not have a family history of colon cancer. She a has had a colonoscopy. The last colonoscopy was 07/15/17. T he patient does* exercise. She exercises in good weather by walking. * ROS: A nnual Supervisor Cytology Exam ROS: Bowel habit changes d enies. [...] Denies A nxiety. * Medical History: * Supervisor Cytology History: G ravida/ Para 4 /4. S exual activity n ot currently sexually active. L ast Pap Smear: Y EARS AGO-DR. SANDOVAL. M ammogram: [facility]. L MP and menses m enopause. H [...] no acute distress, well developed, well nourished, cook soup present in room. HEAD: n ormocephalic, atraumatic. [...] * Follow Up: 1 Year (Reason: Yearly Supervisor Cytology Exam) * Images: Billing Information: * Visit Code: 60763 Preventive Care Est Pt. Age 65 and over. 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 She has been in state of [...] was *11/2021 - at [facility]. She was told she has dense breast tissue. She does *not have a family history of colon cancer. She a has had a colonoscopy. The last colonoscopy was 07/15/17. The patient does* exercise. She exercises in good weather by walking. Examination Category Sub-Category Detail Notes Category Not es General Examination GENERAL APPEARANCE: in no ac taj distress, well developed, well nourished, cook soup present in room HEAD: normocephalic, atrau matic [...]
--- OUTSIDE RECORDS SUMMARY | 2025-03-22 13:15 | XMS_ITS ---
Author Organization Godfrey Conte III, MD Address [address] [place] [address] [address] [place] [address] Care Team Providers Care Trust And Estates Paralegal Name Role Phone DENNIS NEGRON Primary Care Provider Unavailab Dr. Godfrey Cam III Unavailable REASON FOR VISIT Follow Up Social History Sex Assigned At : Social History Observation Description Sex Assigned At Female Encounters Encounter Location Date Provider Diagnosis Godfrey Conet III, MD [address] [place] [address] [place] [address] 03/22/2025 Godfrey Conte Plan Of Treatment Next Appt Details Provider Name:Godfrey Conte , 11/27/2025 10:00:00 AM, [address] [place] [address] [place], [address], Progress Notes * Lenora DE SOUZA ADOB:1955 (70 yo F)Acc No.[id number]:03/22/2025 Progress Notes Patient: Traci NISHLenora WHITE Lizabeth Provider: Jayshree Conte MD :1955 A ge:70 Y S ex:Female Date:03/22/2025 Address:[address] [place], [place] [id number] Pcp:DENNIS NEGRON Subjective: * Chief Complaints: * [...] 0 03/22/2025 Generated for Laya ruano/Dann/Charles on: 10/19/2024 08:00 AM EDT
--- OUTSIDE RECORDS SUMMARY | 2025-05-22 06:00 | XMS_ITS ---
Author Organization Godfrey Conte III, MD Address [address] [place] [address] Care Team Providers Care Insulation Worker Apprentice Name Role Phone DENNIS NEGRON Primary Care [...] Date Provider Diagnosis Godfrey Conte III, MD [address] [place] [address] [place] [address] 05/22/2025 Godfrey Conte Chronic lymphocytic leukemia C91.10 [...] Name:Godfrey Conte , 11/27/2025 10:00:00 AM, [address] [place] [address] [place], [place], [address], Progress Notes * Lenora DE SOUZA ADOB:1955 (70 yo F)Acc No.[id number]:05/22/2025 Progress Notes Patient: Lenora SPEARS Provider: Jayshree Conte MD :1955 A ge:70 Y S ex:Female Date:05/22/2025 Address:[address] [place] [address] [place], [place] Chang [phone] Pcp:DENNIS NEGRON Subjective: * Chief Complaints: * [...] ggressive non-smoker S he was born at [facility] in [place]. She is and has 3 sons and 1 daughter. 2 of her sons have diabetes. 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
--- OUTSIDE RECORDS SUMMARY | 2025-05-23 09:08 | XMS_ITS ---
Author Organization Godfrey Conte III, MD Address [address] [place] [address] Care Team Providers Care Orthodontist Vice President Name Role Phone DENNIS NEGRON Primary Care Provider Unavailab Dr. Godfrey Cam III Unavailable REASON FOR VISIT copy of recent labs Social History Sex Assigned At : Social History Observation Description Sex Assigned At Female Encounters Encounter Location Date Provider Diagnosis Godfrey Conte III, MD [address] [place] [address] [place] [address] 05/23/2025 Godfrey Conte Plan Of Treatment Next Appt Details Provider Name:Godfrey Conte , 11/27/2025 10:00:00 AM, [address] [place] [address] [address], [place], [address], Progress Notes * Lenora DE SOUZA ADOB:1955 (70 yo F)Acc No.[id number]:05/23/2025 Patient: Lenora SPEARS :1955 A ge:70 Y S ex:Female Address:[address] [place] [address], [place], [address] * true * Date: Generated for Printi ng/Faxing/eTransmitting on: 10/19/2024 08:00 AM EDT
--- OUTSIDE RECORDS SUMMARY | 2025-08-19 08:01 | XMS_ITS | Encounter Summary ---
Author Organization [facility] Address [address] [place] [address] [place] [phone] Phone Care Team Providers Care Transportation Job Titles Name Role Phone Raji Slade MD Primary Care Provider [phone] Encounter Details Date Type Department Care Team ([facility] st Contact Info) Description 06/08/2025 Transcribe Orders Virtual Department [address] [place] [address] Ted Medina PA [address] [place] [address] Abnormal LFTs (Primary Dx) Social History Tobacco Use Types Packs/Day Years [...] on file Sexual Orientation Not on file documented as of this encounter Plan of Treatment Not on file documented as of this encounter Visit Diagnoses Diagnosis Abnormal LFTs- Primary documented in this encounter Care Teams Transportation Job Titles Relationship Specialty Start Date End Date Raji Slade MD [address] [place] [address] [place] [address] PCP - General Internal Medicine 09/05/19 documented as of this encounter Additional Source Comments The information contained in this document represents components of the legal health record. It is not the complete legal health record.[facility]
--- OUTSIDE RECORDS SUMMARY | 2025-08-19 08:01 | XMS_ITS | Patient Health Record ---
Author Organization [facility] Address [address] [place] [address] Care Team Providers Care Automatic Furnace Operator Name Role Phone DENNIS RODRIGUEZ Primary Care Provider GUSTAVO Neri Unavailable [phone] Allergies Allergen (clinical drug ingredient) Drug/Non Drug [...] W/U Status Risk Notes Problem Age-related osteoporosis (423478290) Age-related osteoporosis without current pathological fracture (M81.0) Active confirmed Problem Essential hypertension (92725672) Essential (primary) hypertension (I10) Active confirmed Problem Chronic lymphoid leukemia, disease (75662694) 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) Active confirmed Problem Hyperlipidemia (93189038) Hyperlipidemia, unspecified (E78.5) Active confirmed Problem Post-traumatic stress disorder (06312793) Post-traumatic stress disorder, unspecified (F43.10) Active confirmed Vital Signs Temperature 98.0 degrees Fahrenheit 01/16/2025 Blood pressure diastolic 86 mm Hg 01/16/2025 Height 61 in 01/16/2025 Blood pressure systolic 152 mm Hg 01/16/2025 Weight 168 lbs 01/16/2025 BMI 31.74 kg/m2 01/16/2025 Encounters Encounter Location Date Provider Diagnosis [employer] [facility] [address] [place] [address] 01/16/2025 GUSTAVO MCDONOUGH Encounter for gynecological examination [...] End Date [employer] [address] [place] [address] [id number] JOSTIN FAM Self - patient is the [...]
--- OUTSIDE RECORDS SUMMARY | 2025-08-19 08:01 | XMS_ITS | Patient Health Record ---
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 Godfrey Cam III Unavailable [phone] Allergies Allergen (clinical drug ingredient) Drug/Non Drug Allergy documented on EMR Reaction Allergy Type Onset Date Status epinephrine Epinephrine Unknown Drug Allergy Act lorenza Results Component Value Reference Range Notes Complete Blood Count Auto Di ff Reviewed date:09/15/2024 07:38:09 AM Interpretation: Performing Lab:[facility], [address] [place] [phone] Notes/Report: White Blood Count 23.4 4.8-10.8 X10*3/uL [...] 0.0-0.012 X10*3/uL CORRECTED REPORT CORRECTED REPORT [facility] [place]. Panel Fa st Reviewed date:09/15/2024 07:38:09 AM Interpretation: Performing Lab:[facility], [address] [place] [phone] Notes/Report: Sodium 141 135-145 mmol/L Potassium 4.1 [...] Panel Reviewed date:09/15/2024 07:38:09 AM Interpretation: Performing Lab:[facility], [address] [place] [phone] Notes/Report: Triglycerides 133 <150 mg/dL Desirable Triglyceride: [...] REVIEW Reviewed date:09/15/2024 07:38:09 AM Interpretation: Performing Lab:[facility], [address] [place] [phone] Notes/Report: SLIDE REVIEW VERIFIED Complete Blood Count Auto Di ff Reviewed date:05/19/2025 02:16:04 PM Interpretation: Performing Lab:[facility], [address] [place] [phone] Notes/Report: White Blood Count 22.3 4.8-10.8 X10*3/uL Red Blood Count 4.70 4.20-5.50 X10*6/uL Hemoglobin 14.9 12.0-16.0 g/dl Hematocrit 45.5 37.0-47.0 % Mean Corpuscular Volume 96.8 80.0-98.0 fL Mean Corpuscular Hemoglobin 31.7 27.0-33.0 pg Mean Corpuscular HGB Conc 32.7 31.0-35.0 g/dl Red Cell Distribution Width 13.2 11.0-16.0 % Platelet Count 199 160-400 X10*3/uL Mean Platelet Volume 10.6 9.4-12.3 fL Neutrophils Percent Auto 14.2 45-73 % Imm Gran Pct Auto 0.1 0.0-0.4 % Lymphocytes Percent Auto 82.9 20-40 % Monocytes Percent Auto 2.2 2-11 % Eosinophils Percent Auto 0.4 0-4 % Basophils Percent Auto 0.2 0-2 % NRBC Pct Auto 0.0 0.0-0.2 /100WBC Neutrophils Absolute Auto 3.2 2.0-8.3 x10*3/u L Imm Gran Abs Auto 0.03 0.00-0.03 X10*3/uL Lymphocytes Absolute Auto 18.5 1.2-4.9 X10*3/u L Monocytes Absolute Auto 0.5 0.1-1.2 X10*3/uL Eosinophils Absolute Auto 0.1 0.0-0.4 X10*3/u L Basophils Absolute Auto 0.0 0.0-0.2 X10*3/uL NRBC Abs Auto 0.000 0.0-0.012 X10*3/uL White Blood Count 22.3 4.8-10.8 X10*3/uL Red Blood Count 4.70 4.20-5.50 X10*6/uL Hemoglobin 14.9 12.0-16.0 g/dl Hematocrit 45.5 37.0-47.0 % Mean Corpuscular Volume 96.8 80.0-98.0 fL Mean Corpuscular Hemoglobin 31.7 27.0-33.0 pg Mean Corpuscular HGB Conc 32.7 31.0-35.0 g/dl Red Cell Distribution Width 13.2 11.0-16.0 % Platelet Count 199 160-400 X10*3/uL Mean Platelet Volume 10.6 9.4-12.3 fL Neutrophils Percent Auto 14.2 45-73 % Imm Gran Pct Auto 0.1 0.0-0.4 % Lymphocytes Percent Auto 82.9 20-40 % Monocytes Percent Auto 2.2 2-11 % Eosinophils Percent Auto 0.4 0-4 % Basophils Percent Auto 0.2 0-2 % NRBC Pct Auto 0.0 0.0-0.2 /100WBC Neutrophils Absolute Auto 3.2 2.0-8.3 x10*3/u L Imm Gran Abs Auto 0.03 0.00-0.03 X10*3/uL Lymphocytes Absolute Auto 18.5 1.2-4.9 X10*3/u L Monocytes Absolute Auto 0.5 0.1-1.2 X10*3/uL Eosinophils Absolute Auto 0.1 0.0-0.4 X10*3/u L Basophils Absolute Auto 0.0 0.0-0.2 X10*3/uL NRBC Abs Auto 0.000 0.0-0.012 X10*3/uL CORRECTED REPORT CORRECTED REPORT Comprehensive [place]. Panel Fa st Reviewed date:05/19/2025 02:16:04 PM Interpretation: Performing Lab:[facility], [address] [place] [phone] Notes/Report: Sodium 142 135-145 mmol/L Potassium 4.2 3.3-5.1 mmol/L Chloride 108 96-108 mmol/L Carbon Dioxide 28 22-29 mmol/L Anion Gap 10 12-20 Blood Urea Nitrogen 13 9-16 mg/dL Creatinine 0.79 0.5-1.4 mg/dL Estimated Glomerular Filt Rate > 60 Chronic Kidney Disease: Estimated GFR < 60 mL/min/1.73m2 Severe Kidney Disease: Estimated GFR < 15 mL/min/1.73m2 Glucose Fasting 153 60-99 mg/dL A fasting glucose of 126 mg/dl or greater on more than one occasion is considered diagnostic of diabetes. Calcium 9.4 8.4-10.2 mg/dL Bilirubin Total 0.9 0.0-1.0 mg/dL Aspartate Amino Transferase 42 5-31 U/L Alanine Aminotransferase 63 0-31 U/L Total Protein 6.9 6.5-8.0 g/dL Albumin Level 4.7 3.5-5.0 g/dL Alkaline Phosphatase 106 39-117 U/L Lipid Panel Reviewed date:05/19/2025 02:16:04 PM Interpretation: Performing Lab:[facility], [address] [place] [phone] Notes/Report: Triglycerides 120 <150 mg/dL Desirable Triglyceride: less than 150 mg/dL Borderline High Triglyceride 150-199 mg/dL High Triglyceride: 200-499 mg/dL Very High Triglyceride: greater than or equal to 5OO mg/dL Cholesterol 178 <200 mg/dL Desirable Cholesterol: less than 200 mg/dL Borderline High Cholesterol: 200-239 mg/dL High Cholesterol: greater than 239 mg/dL LDL Cholesterol Calculated 100 <100 mg/dL Desirable LDL: less than 100 mg/dL Near Optimal/Above Optimal LDL: 110-129 mg/dL Borderline High LDL: 130-159 mg/dL High LDL: 160-189 mg/dL Very High LDL: greater than or equal to 190 mg/dL HDL Cholesterol 54 >40 mg/dL Desirable HDL: greater than 40 mg/dL Note: This HDL assay may give artificially low results in patients with liver disease. Beta-2 Microglobulin, Serum Reviewed date:05/19/2025 02:16:04 PM Interpretation: Performing Lab:[facility], [address] [place] [phone] Notes/Report: Beta-2 Microglobulin, Serum 1.83 < OR = 2.51 mg/L THIS TEST WAS PERFORMED AT: [facility] [address] [place] [phone] FISH ESQUIVEL MD SLIDE REVIEW Reviewed date:05/19/2025 02:16:04 PM Interpretation: Performing Lab:[facility], [address] [place] [phone] Notes/Report: SLIDE REVIEW VERIFIED Reason For Referral [...] even ing Orally Once a day Active Immunizations Vaccine Route Administration Date Status [...] subunit RSV prefusion F Unknown 08/12/2023 Administered Flu-IIv3 Unknown 07/24/2025 Administered Fluzone High-Dose (HD-IIV3) Unknown 07/26/2019 Administered Flu-IIv4 Unknown 06/09/2017 Administered Comirnaty Pfizer COVID-19 12+ Unknown 07/24/2025 Administered Fluzone High-Dose (HD-IIV3) Unknown 07/23/2018 Administered Influenza no Preserv 3 and > Unknown 06/20/2011 Administered Fluzone High-Dose (HD-IIV3) Unknown 06/04/2020 Administered Fluzone High-Dose (HD-IIV3) Unknown 07/03/2024 Administered Comirnaty Pfizer COVID-19 12+ Unknown 07/03/2024 Administered Social History Tobacco Use: Social History [...] Problem Status W/U Status Risk Notes Problem 07716854 Hyperlipidemia (E78.5) Active confirmed Her lipids are stable and no change in her regimen was necessary. Problem 126679205 Overweight (E66.3) Active confirmed Her body mass index is now 31. She has gained 9 pounds I recommended she continue to lose weight at a rate of 1/2 pound per week. Problem Type II diabetes mellitus without complication (580397034) Diabetes (E11.9) Active confirmed She lik pam need medication. She will followup with Dr. Negron. Problem 11040268 Essential hypertension (I10) Active confirmed Her blood pressure is currently stable and no change in her regimen was necessary. Problem 32562124 Glaucoma (H40.9) Active confirmed She will continue her current medications without change. Problem 18575372 Chronic lymphocytic leukemia (C91.10) Active confirmed Her chronic lymphocytic leukemia remains early Stage and stable. Observation alone may continue. There is no adenopathy or splenomegaly. Her constitutional B symptoms. Vital Signs Heart Rate 63 /min 05/22/2025 Temperature 97.7 degrees Fahrenheit 05/22/2025 Blood pressure diastolic 71 mm Hg 05/22/2025 Height 62 in 05/22/2025 Blood pressure systolic 131 mm Hg 05/22/2025 Weight 171 lbs 05/22/2025 BMI 31.27 kg/m2 05/22/2025 Encounters Encounter Location Date Provider Diagnosis Godfrey Conte III, MD [address] [place] [address] [address] [place] [address] 09/21/2024 Godfrey Conte Chronic lymphocytic leukemia C91.10 ; Overweight E66.3 ; Essential hypertension I10 ; Hyperlipidemia E78.5 and Diabetes E11.9 Godfrey Conte III, MD [address] [place] [address] [address] [place] [address] 05/22/2025 Godfrey Conte Chronic lymphocytic leukemia C91.10 ; Essential hypertension I10 ; Hyperlipidemia E78.5 and Diabetes E11.9 Godfrey Conte III, MD [address] [place] [address] [address] [place] [address] 05/23/2025 Godfrey Conte Assessments Encounter Date Diagnosis (ICD Code) Assessment Notes Treat ment Notes Treatment Clinical Notes 09/21/2024 Overweight (ICD-10 - E66.3) Her body [...] change in her regimen was necessary. 05/22/2025 Chronic lymphocytic leukemia (ICD-10 - C91.10) Her chronic lymphocytic leukemia remains early Stage and stable. Observation alone may continue. There is no adenopathy or splenomegaly. Her constitutional B symptoms. 09/21/2024 Essential hypertension (ICD-10 - I10) Her blood pressure is currently stable and no change in her regimen was made today. 05/22/2025 Hyperlipidemia (ICD-10 - E78.5) Her lipids are stable and no change in her regimen was necessary. 09/21/2024 Hyperlipidemia (ICD-10 - E78.5) Her total cholesterol is 194. We discussed her diet and nutrition. He will be managed by primary care. 05/22/2025 Diabetes (ICD-10 - E11.9) She likely need medication. She will followup with Dr. Negron. 09/21/2024 Diabetes (ICD-10 - E11.9) She has been compliant with all of her medications. We discussed her diabetic diet and weight loss. Her fasting gluucose is 141. Plan Of Treatment Pending Test Test Name Order Date PROFILE, FASTING (COMPREHENSIVE METABOLI C) 02/11/2024 PROFILE, FASTING (COMPREHENSIVE METABOLI C) 05/22/2025 PROFILE, FASTING (COMPREHENSIVE METABOLI C) 09/14/2023 PROFILE, FASTING (COMPREHENSIVE METABOLI C) 09/21/2024 PROFILE, FASTING (COMPREHENSIVE METABOLI C) 05/11/2023 PROFILE, RANDOM (COMPREHENSIVE METABOLIC ) 01/06/2023 LIPID PANEL 05/11/2023 LDH 01/06/2023 LDH 05/22/2025 CBC w DIFF 02/11/2024 CBC w DIFF 05/11/2023 CBC w DIFF 09/14/2023 CBC w DIFF 01/06/2023 CBC w DIFF 05/22/2025 CBC w DIFF 09/21/2024 BETA-2 MICROGLOBULIN, SERUM 09/21/2024 XR CHEST 2 VIEW PA & LAT 06/30/2018 Lipid Panel 09/21/2024 Lipid Panel 02/11/2024 Lipid Panel 09/14/2023 Lipid Panel 05/22/2025 Beta-2 Microglobulin, Serum 05/22/2025 Hemoglobin A1c 05/22/2025 Next Appt Details Provider Name:Godfrey Chang Inés , 11/27/2025 10:00:00 AM, [address] [place] [address] [place], [place], [phone], Insurance Providers Payer Name Payer Address Payer Phone Subscriber Number Group Number Insured Name Patient Relationship to Insured Coverage Start Date Coverage End Date [facility] [address] [facility] [place] [address] [id number] Lenora De Souza Self - patient is the insured MEDICARE NGS [address] [place] [address] [id number] Lenora De Souza Self - patient is the insured Medical (General) History Medical History History ICD Code glaucoma cll/sll gestational diabetes hypertension hyperlipidemia overweight The patient's mother had type 2 diabetes . Surgical History Surgery Date(Month/Year) No history T&A Hospitalization History Reason Date(Month/Year) No history pregnancies
[2025-08-19 08:36] LABS: Hematocrit 47.2 % (37.0-47.0); Hemoglobin 15.2 g/dl (12.0-16.0); Mean Corpuscular HGB Conc 32.2 g/dl (31.0-35.0); Mean Corpuscular Hemoglobin 31.2 pg (27.0-33.0); Mean Corpuscular Volume 96.9 fL (80.0-98.0); NRBC Abs Auto 0.000 X10*3/uL (0.0-0.012); NRBC Pct Auto 0.0 /100WBC (0.0-0.2); Platelet Count 211 X10*3/uL (160-400); Red Blood Count 4.87 X10*6/uL (4.20-5.50); White Blood Count 23.3 X10*3/uL (4.8-10.8)
[2025-08-19 09:02] LABS: Alanine Aminotransferase 60 U/L (0-31); Albumin Level 4.8 g/dL (3.5-5.0); Alkaline Phosphatase 108 U/L (39-117); Anion Gap 12 (12-20); Aspartate Amino Transferase 42 U/L (5-31); Blood Urea Nitrogen 16 mg/dL (9-16); Calcium 10.0 mg/dL (8.4-10.2); Carbon Dioxide 30 mmol/L (22-29); Chloride 103 mmol/L (96-108); Cholesterol 192 mg/dL (<200); Estimated Glomerular Filt Rate > 60; HDL Cholesterol 62 mg/dL (>40); Potassium 4.3 mmol/L (3.3-5.1); Sodium 141 mmol/L (135-145); Total Protein 7.1 g/dL (6.5-8.0); Triglycerides 153 mg/dL (<150)
== END 2025-08-19 07:57 | disposition home or self-care (01) ==
LOC: HO.LAB 07:56
PROVIDERS: PCP Physician Assistant; Visit Provider Physician Assistant
DX: E78.5 Hyperlipidemia, unspecified (principal); R73.01 Impaired fasting glucose
CPT/HCPCS: 36415; 80053; 80061; 83036; 85027

== ENCOUNTER 2025-08-21 09:23 | Outpatient (REF) | payer MEDICARE, SELFPAY ==
--- OUTSIDE RECORDS SUMMARY | 2024-03-28 08:18 | XMS_ITS ---
Author Organization Godfrey Conte III, MD Address [address] [place] [address] [place] [address] Care Team Providers Care Electrocardiograph Operator Name Role Phone DENNIS NEGRON Primary Care Provider UnavailDr. Godfrye Valadez III Unavailable REASON FOR VISIT Balance Social History Sex Assigned At : Social History Observation Description Sex Assigned At Female Encounters Encounter Location Date Provider Diagnosis Godfrey Conte III, MD [address] [place] [address] [place] [address] 03/28/2024 Godfrey Conte Plan Of Treatment Next Appt Details Provider Name:Godfrey Conte , 11/27/2025 10:00:00 AM, [address] [place] [address] [place], [address], Progress Notes * Lenora DE SOUZA ADOB:1955 (69 yo F)Acc No.[id number]:03/28/2024 Patient: Lenora Holt :1955 A ge:69 Y S ex:Female Address:[address] [place], [place] [address], [address] * true * Date: Generated for Rachellei ng/Fajasperg/eTransmitting on: 10/21/2024 10:32 AM EST
--- OUTSIDE RECORDS SUMMARY | 2024-06-09 08:30 | XMS_ITS ---
Author Organization Godfrey Conte III, MD Address [address] [place] [address] [address] VAR[address] [facility] [address] Care Team Providers Care Spool Maker Name Role Phone DENNIS NEGRON Primary Care Provider Unavailab Dr. Godfrey Cam III Unavailable REASON FOR VISIT Follow Up Social History Sex Assigned At : Social History Observation Description Sex Assigned At Female Encounters Encounter Location Date Provider Diagnosis Godfrey Conte III, MD [address] [place] [address] [place] [address] 06/09/2024 Godfrey Conte Plan Of Treatment Next Appt Details Provider Name:Godfrey Conte , 11/27/2025 10:00:00 AM, [address] [place] [address] [place], [address], Progress Notes * Lenora DE SOUZA ADOB:1955 (70 yo F)Acc No.[id number]:06/09/2024 Progress Notes Patient: Traci NISHLenora WHITE Lizabeth Provider: Jayshree Conte MD :1955 A ge:69 Y S ex:Female Date:06/09/2024 Address:[address] [place], [place] [address]ALKA [id number] Pcp:DENNIS NEGRON Subjective: * Chief Complaints: * 1 . Follow Up. * Medical History: Objective: * Vitals: Assessment: Plan: * Treatment: * Images: * The named appointment provid er may or may not be the originator of this progress note, and it is not deemed complete until electronically signed by the appointment provider. Sign off status: Pending * Provider: Jayshree Conte MD Date: 0 06/09/2024 Generated for Laya ruano/Dann/Charles on: 10/21/2024 10:32 AM EST
--- OUTSIDE RECORDS SUMMARY | 2024-08-04 08:30 | XMS_ITS ---
Author Organization Godfrey Conte III, MD Address [address] [place] [address] [address] [facility] [place] [address] Care Team Providers Care Data Analyst Report Writer Name Role Phone DENNIS NEGRON Primary Care Provider Unavailab Dr. Godfrey Cam III Unavailable REASON FOR VISIT Follow Up Social History Sex Assigned At : Social History Observation Description Sex Assigned At Female Encounters Encounter Location Date Provider Diagnosis Godfrey Conte III, MD [address] [place] [address] [place] [address] 08/04/2024 Godfrey Conte Plan Of Treatment Next Appt Details Provider Name:Godfrey Conte , 11/27/2025 10:00:00 AM, [address] [place] [address] [place], [address], Progress Notes * Lenora DE SOUZA ADOB:1955 (70 yo F)Acc No.[id number]:08/04/2024 Progress Notes Patient: Lenora SPEARS Lizabeth Provider: Jayshree Conte MD :1955 A ge:69 Y S ex:Female Date:08/04/2024 Address:[address] [place], [place] [address] [id number] Pcp:DENNIS NEGRON Subjective: * Chief Complaints: * 1 . Follow Up. * Medical History: Objective: * Vitals: Assessment: Plan: * Treatment: * Images: * The named appointment provid er may or may not be the originator of this progress note, and it is not deemed complete until electronically signed by the appointment provider. Sign off status: Pending * Provider: Jayshree Conte MD Date: Generated for Laya ruano/aDnn/Charles on: 10/21/2024 10:33 AM EST
--- OUTSIDE RECORDS SUMMARY | 2024-09-21 04:30 | XMS_ITS ---
Author Organization Godfrey Conte III, MD Address [address] [place] [place] [address] Care Team Providers Care Coordinating Producer Name Role Phone DENNIS NEGRON Primary Care Provider Unavailab Dr. Godfrey Cam III Unavailable [phone] Allergies Allergen (clinical drug ingredient) Drug/Non Drug Allergy documented on EMR Reaction Allergy Type Onset Date Status epinephrine Epinephrine Unknown Drug Allergy Act lorenza REASON FOR VISIT Chronic lymphocytic leukemia, Hypertension, Hyperlipidemia, Diabetes Medications Medication SIG (Take, Route, Frequency, Duration) Notes Start Date End Date Status hydroCHLOROthiazide 12.5 MG 1 capsule in the morning Orally Once a day Active Alendronate Sodium A ctive Simvastatin 20 MG 1 tablet in the even ing Orally Once a day Active Centrum Silver Adult 50+ Orally Active Meclizine HCl 25 MG 1 tablet as needed Orally three times a day 09/03/2020 Active Aspirin 81 MG 1 tablet Orally Once a day Active Vitamin D 1000 UNIT 1 tablet Orally Once a day Active Calcium 600 MG 1 tablet with food Orally Twice a day Active Social History Tobacco Use: Social History Observation Description Date Details (start date - stop date) Never Smoker NA - NA Sex Assigned At : Social History Observation Description Sex Assigned At Female Tobacco Use/Smoking Question Answer Notes Patient is a nonsmoker Additional Findings: Tobacco Non-User Aggressive non-smoker Alcohol Screen Question Answer Notes Did you have a drink containing alcohol in the p ast year? No Points 0 Interpretation Negative Problems Problem Type SNOMED Code ICD Code Onset Dates Problem Status W/U Status Risk Notes Problem 468100970 Overweight (E66.3) Active confirmed Her body mass index is now 31. She has gained 9 pounds I recommended she continue to lose weight at a rate of 1/2 pound per week. Vital Signs Temperature 97.2 degrees Fahrenheit 09/21/20 24 Blood pressure systolic 135 mm Hg 09/21/20 24 Blood pressure diastolic 78 mm Hg 024 Heart Rate 77 /min 09/21/2024 Height 62 in 09/21/2024 Weight 170 lbs 09/21/2024 BMI 31.09 kg/m2 09/21/2024 Encounters Encounter Location Date Provider Diagnosis Godfrey Conte III, MD [address] [place] [address] [place] [address] 09/21/2024 Godfrey Conte Chronic lymphocytic leukemia C91.10 ; Overweight E66.3 ; Essential hypertension I10 ; Hyperlipidemia E78.5 and Diabetes E11.9 Assessments Encounter Date Diagnosis (ICD Code) Assessment Notes Treat ment Notes Treatment Clinical Notes 09/21/2024 Chronic lymphocytic leukemia (ICD-10 - C91.10) Her chronic lymphocytic leukemia remains early Stage and stable. Observation alone may continue. There is no adenopathy or splenomegaly. Her constitutional B symptoms. 09/21/2024 Overweight (ICD-10 - E66.3) Her body mass index is now 31. She has gained 9 pounds I recommended she continue to lose weight at a rate of 1/2 pound per week. 09/21/2024 Essential hypertension (ICD-10 - I10) Her blood pressure is currently stable and no change in her regimen was made today. 09/21/2024 Hyperlipidemia (ICD-10 - E78.5) Her total cholesterol is 194. We discussed her diet and nutrition. He will be managed by primary care. 09/21/2024 Diabetes (ICD-10 - E11.9) She has been compliant with all of her medications. We discussed her diabetic diet and weight loss. Her fasting gluucose is 141. Plan Of Treatment Medication Medication Name Sig Start Date Stop Date Notes hydroCHLOROthiazide 12.5 MG 1 capsule in the morning Orally Once a day Alendronate Sodium Simvastatin 20 MG 1 tablet in the even ing Orally Once a day Centrum Silver Adult 50+ Orally Meclizine HCl 25 MG 1 tablet as needed O rally three times a day 09/03/2020 Aspirin 81 MG 1 tablet Orally Once a day Vitamin D 1000 UNIT 1 tablet Orally Once a day Calcium 600 MG 1 tablet with food O rally Twice a day Pending Test Test Name Order Date PROFILE, FASTING (COMPREHENSIVE METABOLI C) 09/21/2024 CBC w DIFF 09/21/2024 BETA-2 MICROGLOBULIN, SERUM 09/21/2024 Lipid Panel 09/21/2024 Next Appt Details Follow Up: 6 Months, Reason: ov review labs Provider Name:Godfrey Conte , 11/27/2025 10:00:00 AM, [address] [place] [address], [place] [address], [place], [address], Progress Notes * Lenora DE SOUZA ADOB:1955 (69 yo F)Acc No.[id number]:09/21/2024 Progress Notes Patient: Lenora SPEARS Provider: Jayshree Conte MD :1955 A ge:69 Y S ex:Female Date:09/21/2024 Address:[address] [place] [address] [id number] Pcp:Raji Slade MD Subjective: * Chief Complaints: * C hronic lymphocytic leukemiaHypertensionHyperlipidemiaDiabetes * HPI: C OVID-19 Screening: Questions H ave you experienced fever, chills, cough, sore throat, shortness of breath, difficulty breathing, muscle aches, loss of taste or smell? N o H ave you been exposed to the virus within the last 10 days? N o H ave you travelled internationally in the last 10 days? N o H ave you been exposed to COVID-19 in the past? N o * : The patient, a 69-year-old female, presented with no new symptoms since her last visit in January. She reported no fevers, chills, or new medications. She did express concern about her weight, which she said had increased during a stressful period. She also mentioned that her blood sugar was high, which she attributed to not being careful about her diet. The doctor confirmed that her blood sugar was in the diabetic range. The patient also mentioned feeling dizzy after walking, but did not report any other symptoms. Blood Sugar Level is 141. * ROS: G eneral/Constitutional: pain o nly normal aches and pains. D enies C hills,?denies. F atigue a dmits. F ever d enies. E NT: Decreased hearing m ild. R espiratory: Cough d enies. C ardiovascular: Chest pain with exertion d enies. D yspnea on exertion?denies. S hortness of breath d enies. G astrointestinal: Constipation o ccasional. D ecreased appetite d enies. D iarrhea d enies. H eartburn d enies. N ausea d enies. R ectal bleeding d enies. V omiting d enies. H ematology: bruising d enies. p etechiae d enies. S wollen glands n one have been noted. G enitourinary: Frequent urination a t night. M usculoskeletal: Muscle aches d enies. P ainful joints d enies. S ciatica d enies. W eakness d enies. S kin: Itching d enies. R lenka d enies. S kin lesion(s)?denies. N eurologic: Difficulty speaking d enies. D izziness d enies.?Headache d enies. L ow back pain d enies. P sychiatric: Depressed mood d enies. * Medical History: * Surgical History: G 4P4 T&A No history * Hospitalization/Major Diagno stic Procedure: p regnancies No history * Family History: F ather: 67 yrs, liver cancer at 67, malaria, diagnosed with HTN. M other: 84 yrs, ovarian cancer, aodm,, diagnosed with DM. C hildren: alive, diagnosed with DM. S iblings: alive 64 yrs. 2 sister(s) . 3 son(s) , 1 daughter(s) . . One of her sisters was diagnosed with Alzheimer's disease at age 59. Two of her sons has juvenile diabetes. Her father's mother had cancer of the cervix. Her sister has developed invasive ductal carcinoma the breast at the age of 65 and 202. She is not aware of any family history of mental illness or substance use disorder or addiction. Mother had type 2 diabetes. * Social History: T obacco Use: T obacco Use/Smoking P atient is a n onsmoker A dditional Findings: Tobacco Non-User A ggressive non-smoker D rugs/Alcohol: D rugs H ave you used drugs other than those for medical reasons in the past 12 months? N o Alcohol Screen D id you have a drink containing alcohol in the past year? N o P oints 0 I nterpretation N atilio S he was born at [facility] in [place]. She is and has 3 sons and 1 daughter. 2 of her sons have diabetes. She has one grandchild who lives in [place]. 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 The patient reported walking regularly with a neighbor. * Medications: T akingAspirin 81 MG Tablet 1 tablet Orally Once a day Vitamin D 1000 UNIT Tablet 1 tablet Orally Once a day Calcium 600 MG Tablet 1 tablet with food Orally Twice a day Simvastatin 20 MG Tablet 1 tablet in the evening Orally Once a day Centrum Silver Adult 50+ Tablet Orally hydroCHLOROthiazide 12.5 MG Capsule 1 capsule in the morning Orally Once a day Taking Aspirin 81 MG Tablet 1 tablet Orally Once a day Taking Vitamin D 1000 UNIT Tablet 1 tablet Orally Once a day Taking Calcium 600 MG Tablet 1 tablet with food Orally Twice a day Taking Simvastatin 20 MG Tablet 1 tablet in the evening Orally Once a day Taking Centrum Silver Adult 50+ Tablet Orally Taking hydroCHLOROthiazide 12.5 MG Capsule 1 capsule in the morning Orally Once a day Not-Taking/PRNMeclizine HCl 25 MG Tablet 1 tablet as needed Orally three times a day Alendronate Sodium Medication List reviewed and reconciled with the patientNot-Taking/PRN Meclizine HCl 25 MG Tablet 1 tablet as needed Orally three times a day Not-Taking/PRN Alendronate Sodium Medication List reviewed and reconciled with the patient * Allergies: E pinephrine: Side Effectsno[Allergies Verified] Objective: * Vitals: H t: 62, Wt:170, BMI:31.09, BP:135/78, HR:77, Temp:97.2, Wt-k.11. * P ast Orders: Lab:Complete Blood Count Aut o Diff * Collection Date 09/14/2024 01/04/2024 09/07/2023 Collection Time 08:24 AM 08:09 AM 08:09 AM Order Date 09/14/2024 01/04/2024 09/07/2023 White Blood Count 23.4 H (Ref Range: 4.8-10.8 X10*3/uL) 23.4 H (Ref Range: 4.8-10.8 X10*3/uL) 22.3 H (Ref Range: 4.8-10.8 X10*3/uL) Red Blood Count 4.77 (Ref Range: 4.20-5.50 X10*6/uL) 4.84 (Ref Range: 4.20-5.50 X10*6/uL) 4.81 (Ref Range: 4.20-5.50 X10*6/uL) Hemoglobin 14.9 (Ref Range: 12.0-16.0 g/dl) 15.6 (Ref Range: 12.0-16.0 g/dl) 15.0 (Ref Range: 12.0-16.0 g/dl) Hematocrit 46.1 (Ref Range: 37.0-47.0 %) 46.7 (Ref Range: 37.0-47.0 %) 46.5 (Ref Range: 37.0-47.0 %) Mean Corpuscular Volume 96.6 (Ref Range: 80.0-98.0 fL) 96.5 (Ref Range: 80.0-98.0 fL) 96.7 (Ref Range: 80.0-98.0 fL) Mean Corpuscular Hemoglobin 31.2 (Ref Range: 27.0-33.0 pg) 32.2 (Ref Range: 27.0-33.0 pg) 31.2 (Ref Range: 27.0-33.0 pg) Mean Corpuscular HGB Conc 32.3 (Ref Range: 31.0-35.0 g/dl) 33.4 (Ref Range: 31.0-35.0 g/dl) 32.3 (Ref Range: 31.0-35.0 g/dl) Red Cell Distribution Width 13.2 (Ref Range: 11.0-16.0 %) 13.4 (Ref Range: 11.0-16.0 %) 13.2 (Ref Range: 11.0-16.0 %) Platelet Count 213 (Ref Range: 160-400 X10*3/uL) 230 (Ref Range: 160-400 X10*3/uL) 197 (Ref Range: 160-400 X10*3/uL) Mean Platelet Volume 10.5 (Ref Range: 9.4-12.3 fL) 10.6 (Ref Range: 9.4-12.3 fL) 10.7 (Ref Range: 9.4-12.3 fL) Neutrophils Percent Auto 14.3 L (Ref Range: 45-73 %) 11.8 L (Ref Range: 45-73 %) 15.5 L (Ref Range: 45-73 %) Imm Gran Pct Auto 0.1 (Ref Range: 0.0-0.4 %) 0.1 (Ref Range: 0.0-0.4 %) 0.2 (Ref Range: 0.0-0.4 %) Lymphocytes Percent Auto 82.7 H (Ref Range: 20-40 %) 85.3 H (Ref Range: 20-40 %) 81.1 H (Ref Range: 20-40 %) Monocytes Percent Auto 2.1 (Ref Range: 2-11 %) 2.0 (Ref Range: 2-11 %) 2.5 (Ref Range: 2-11 %) Eosinophils Percent Auto 0.5 (Ref Range: 0-4 %) 0.5 (Ref Range: 0-4 %) 0.5 (Ref Range: 0-4 %) Basophils Percent Auto 0.3 (Ref Range: 0-2 %) 0.3 (Ref Range: 0-2 %) 0.2 (Ref Range: 0-2 %) NRBC Pct Auto 0.0 (Ref Range: 0.0-0.2 /100WBC) 0.0 (Ref Range: 0.0-0.2 /100WBC) 0.0 (Ref Range: 0.0-0.2 /100WBC) Neutrophils Absolute Auto 3.4 (Ref Range: 2.0-8.3 x10*3/uL) 2.8 (Ref Range: 2.0-8.3 x10*3/uL) 3.5 (Ref Range: 2.0-8.3 x10*3/uL) Imm Gran Abs Auto 0.03 (Ref Range: 0.00-0.03 X10*3/uL) 0.03 (Ref Range: 0.00-0.03 X10*3/uL) 0.04 H (Ref Range: 0.00-0.03 X10*3/uL) Lymphocytes Absolute Auto 19.3 H (Ref Range: 1.2-4.9 X10*3/uL) 20.0 H (Ref Range: 1.2-4.9 X10*3/uL) 18.1 H (Ref Range: 1.2-4.9 X10*3/uL) Monocytes Absolute Auto 0.5 (Ref Range: 0.1-1.2 X10*3/uL) 0.5 (Ref Range: 0.1-1.2 X10*3/uL) 0.6 (Ref Range: 0.1-1.2 X10*3/uL) Eosinophils Absolute Auto 0.1 (Ref Range: 0.0-0.4 X10*3/uL) 0.1 (Ref Range: 0.0-0.4 X10*3/uL) 0.1 (Ref Range: 0.0-0.4 X10*3/uL) Basophils Absolute Auto 0.1 (Ref Range: 0.0-0.2 X10*3/uL) 0.1 (Ref Range: 0.0-0.2 X10*3/uL) 0.0 (Ref Range: 0.0-0.2 X10*3/uL) NRBC Abs Auto 0.000 (Ref Range: 0.0-0.012 X10*3/uL) 0.000 (Ref Range: 0.0-0.012 X10*3/uL) 0.000 (Ref Range: 0.0-0.012 X10*3/uL) * Lab:SLIDE REVIEW * Collection Date 09/14/2024 01/04/2024 09/07/2023 Collection Time 08:24 AM 08:09 AM 08:09 AM Order Date 09/14/2024 01/04/2024 09/07/2023 SLIDE REVIEW VERIFIED VERIFIED VERIFIED * Lab:Lipid Panel * Collection Date 09/14/2024 01/04/2024 04/18/2022 Collection Time 08:24 AM 08:09 AM 07:51 AM Order Date 09/14/2024 01/04/2024 04/18/2022 Triglycerides 133 (Ref Range: <150 mg/dL) 104 (Ref Range: <150 mg/dL) 82 (Ref Range: mg/dL) Cholesterol 188 (Ref Range: <200 mg/dL) 194 (Ref Range: <200 mg/dL) 163 (Ref Range: mg/dL) LDL Cholesterol Calculated 106 H (Ref Range: <100 mg/dL) 113 H (Ref Range: <100 mg/dL) 96 (Ref Range: mg/dl) HDL Cholesterol 56 (Ref Range: >40 mg/dL) 61 (Ref Range: >40 mg/dL) 51 (Ref Range: mg/dL) * Lab:Comprehensive [place]. Pane l Fast * Collection Date 09/14/2024 01/04/2024 04/18/2022 Collection Time 08:24 AM 08:09 AM 07:51 AM Order Date 09/14/2024 01/04/2024 04/18/2022 Sodium 141 (Ref Range: 135-145 mmol/L) 142 (Ref Range: 135-145 mmol/L) 140 (Ref Range: 135-145 mmol/L) Bilirubin Total 0.8 (Ref Range: 0.0-1.0 mg/dL) 0.7 (Ref Range: 0.0-1.0 mg/dL) 0.6 (Ref Range: 0.0-1.0 mg/dL) Aspartate Amino Transferase 39 H (Ref Range: 5-31 U/L) 31 (Ref Range: 5-31 U/L) 29 (Ref Range: 5-31 U/L) Alanine Aminotransferase 66 H (Ref Range: 0-31 U/L) 38 H (Ref Range: 0-31 U/L) 42 H (Ref Range: 0-31 U/L) Total Protein 6.6 (Ref Range: 6.5-8.0 g/dL) 7.0 (Ref Range: 6.5-8.0 g/dL) 6.5 (Ref Range: 6.5-8.0 g/dL) Albumin Level 4.3 (Ref Range: 3.5-5.0 g/dL) 4.4 (Ref Range: 3.5-5.0 g/dL) 4.5 (Ref Range: 3.5-5.0 g/dL) Alkaline Phosphatase 92 (Ref Range: 39-117 U/L) 91 (Ref Range: 39-117 U/L) 102 (Ref Range: 39-117 U/L) Potassium 4.1 (Ref Range: 3.3-5.1 mmol/L) 4.0 (Ref Range: 3.3-5.1 mmol/L) 4.2 (Ref Range: 3.3-5.1 mmol/L) Chloride 104 (Ref Range: 96-108 mmol/L) 104 (Ref Range: 96-108 mmol/L) 106 (Ref Range: 96-108 mmol/L) Carbon Dioxide 25 (Ref Range: 22-29 mmol/L) 28 (Ref Range: 22-29 mmol/L) 27 (Ref Range: 22-29 mmol/L) Anion Gap 16 (Ref Range: 12-20) 14 (Ref Range: 12-20) 11 L (Ref Range: 12-20) Blood Urea Nitrogen 18 H (Ref Range: 9-16 mg/dL) 22 H (Ref Range: 9-16 mg/dL) 21 H (Ref Range: 9-16 mg/dL) Creatinine 0.82 (Ref Range: 0.5-1.4 mg/dL) 0.91 (Ref Range: 0.5-1.4 mg/dL) 0.88 (Ref Range: 0.5-1.4 mg/dL) Estimated Glomerular Filt Rate > 60 > 60 > 60 Glucose Fasting 141 H (Ref Range: 60-99 mg/dL) 138 H (Ref Range: 60-99 mg/dL) 120 H (Ref Range: 60-99 mg/dL) Calcium 9.7 (Ref Range: 8.4-10.2 mg/dL) 9.7 (Ref Range: 8.4-10.2 mg/dL) 9.7 (Ref Range: 8.4-10.2 mg/dL) * Examination: G eneral Examination: GENERAL APPEARANCE: p leasant, well nourished, well developed, in no acute distress, calm and relaxed, woman, obese, woman. HEAD: a traumatic, normocephalic. EYES: e dee, perrla, anicteric, conjugate. EARS: n ormal. NOSE: s eptum intact. ORAL CAVITY: n ormal, unremarkable. NECK/THYROID: n o jugular venous distention, no carotid bruit, thyroid normal. LYMPH NODES: n o enlarged lymph nodes,spleen normal. SKIN: n o suspicious lesions, anicteric. HEART: n o clicks, gallops, murmurs, or rubs, regular rhythm, S1, S2 normal, no s3, or vascular bruits. LUNGS: c lear to auscultation . BREASTS: N ot examined. ABDOMEN: b owel sounds normal, no ascites, no organomegaly, no mass, centripital obesity. RECTAL EXAM: n ot examined. MUSCULOSKELETAL: e xtremities unremarkable, no clubbing, cyanosis or edema. PERIPHERAL PULSES: n ormal. NEUROLOGIC: a lert and oriented, cranial nerves 2-12 grossly intact, deep tendon reflexes 2+ symmetrical, motor strength normal upper and lower extremities, sensory exam intact. PSYCH: a lert, oriented. - : E ar Examination:No issues found, Blood Pressure: High, Blood Sugar: High, Weight: Increased. Assessment: * Assessment: 1. C hronic lymphocytic leukemia - C91.10 (Primary) N otes :Her chronic lymphocytic leukemia remains early Stage and stable. Observation alone may continue. There is no adenopathy or splenomegaly. Her constitutional B symptoms. 2 . O verweight - E66.3 N otes :Her body mass index is now 31. She has gained 9 pounds I recommended she continue to lose weight at a rate of 1/2 pound per week. 3 . E ssential hypertension - I10 N otes :Her blood pressure is currently stable and no change in her regimen was made today. 4 . H yperlipidemia - E78.5 N otes :Her total cholesterol is 194. We discussed her diet and nutrition. He will be managed by primary care. 5 . D iabetes - E11.9 N otes :She has been compliant with all of her medications. We discussed her diabetic diet and weight loss. Her fasting gluucose is 141. Plan: * Treatment: 2. E ssential hypertension L AB: PROFILE, FASTING (COMPREHENSIVE METABOLIC) L AB: CBC w DIFF L AB: BETA-2 MICROGLOBULIN, SERUM L AB: Lipid Panel 3. H yperlipidemia L AB: PROFILE, FASTING (COMPREHENSIVE METABOLIC) L AB: CBC w DIFF L AB: BETA-2 MICROGLOBULIN, SERUM L AB: Lipid Panel 4. D iabetes L AB: PROFILE, FASTING (COMPREHENSIVE METABOLIC) L AB: CBC w DIFF L AB: BETA-2 MICROGLOBULIN, SERUM L AB: Lipid Panel 5. O thers Continue Alendronate Sodium. * Procedure Codes: * Preventive Medicine: DM Care Plan: P atient Lifestyle Goals P atient wants to be able to manage diabetes without too much effort. T reatment Goals H bA1C < 7.0. B arriers n o barriers. S elf-Managment Goals W ork on weight loss, with a goal of losing 1 lb per week. * Follow Up: 6 Months (Reason: ov review labs) * Images: * Sign off status: Completed true * Provider: Jayshree Conte MD Date: 11/22/2023 Generated for Laya ng/Dann/Cruzitosmitting on: 10/21/2024 10:33 AM EST History and Physical Notes * HPI (History of Present Illness) Category Sub-Category Detail Notes COVID-19 Screening Questions Have you had any new onset fever, chills, cough, congestion, sore throat, shortness of breath, muscle aches?: No Have you been exposed to the virus withi n the last 10 days?: No Have you travelled internationally in last 10 days?: No Have you been exposed to COVID-19 in the past?: No Examination Category Sub-Category Detail Notes General Examination GENERAL APPEARANCE: pleasant , well nourished, well developed, in no acute distress, calm and relaxed, woman, obese, woman HEAD: atraumatic, normocep halic EYES: eomi, perrla, anicte lenny, conjugate EARS: normal NOSE: septum intact NECK/THYROID: no jugular venous di stention, no carotid bruit, thyroid normal HEART: no clicks, gallops, murmurs, or rubs, regular rhythm, S1, S2 normal, no s3, or vascular bruits LUNGS: clear to auscultatio n ABDOMEN: bowel sounds normal, no ascites, no organomegaly, no mass, centripital obesity NEUROLOGIC: alert and oriented, cranial nerves 2-12 grossly intact, deep tendon reflexes 2+ symmetrical, motor strength normal upper and lower extremities, sensory exam intact SKIN: no suspicious lesion s, anicteric PERIPHERAL PULSES: normal BREASTS: Not examined MUSCULOSKELETAL: extremities unremark able, no clubbing, cyanosis or edema LYMPH NODES: no enlarged lymph no lydia,spleen normal RECTAL EXAM: not examined PSYCH: alert, oriented ORAL CAVITY: normal, unremarkable
--- OUTSIDE RECORDS SUMMARY | 2024-10-24 03:00 | XMS_ITS ---
Author Organization [employer] Address [address] [place] [address] Care Team Providers Care Mid Level Clinician Name Role Phone DENNIS RODRIGUEZ Primary Care Provider GUSTAVO Neri Unavailable [phone] REASON FOR VISIT LR MEDICARE PE Encounters Encounter Location Date Provider Diagnosis [facility] [address] [address] 10/24/2024 GUSTAVO MCDONOUGH Encounter for gynecological examination (general) (routine) without abnormal findings Z01.419 and Encounter for screening mammogram for malignant neoplasm of breast Z12.31 Assessments Encounter Date Diagnosis (ICD Code) Assessment Notes Treatment Notes Treatment Clinical Notes Section Notes 10/24/2024 Encounter for gynecological examination (general) (routine) without abnormal findings (ICD-10 - Z01.419) During the visit, the following areas of concern were addressed: Discussed sstopping cervical cancer screening as per ASCCP guidelines. Advised continued annual pelvic exams. Patient encouraged to increase her level of exercise. SBE technique encouraged/tau ght. Patient reminded when annual mammogram is due. Patient encouraged to keep colon screening up to date. 10/24/2024 Encounter for screening mammogram for malignant neoplasm of breast (ICD-10 - Z12.31) Plan Of Treatment Treatment Notes Assessment Notes Encounter for gynecological examination (general) (routine) without abnormal findings During the visit, the following areas of concern were addressed: Discussed sstopping cervical cancer screening as per ASCCP guidelines. Advised continued annual pelvic exams. Patient encouraged to increase her level of exercise. SBE technique encouraged/taught. Patient reminded when annual mammogram is due. Patient encouraged to keep colon screening up to date. Pending Test Test Name Order Date MM Digital Screening Mammogram 3D 2024 Next Appt Details Follow Up: 1 Year, Reason: Y early Behavioral Health Specialist Exam Progress Notes * ABRAM FAMB:1955 ( 70 yo F)Acc No.[id number]:10/24/2024 PROGRESS NOTES Patient: LENORA SPEARS Provider: Chan MCDONOUGH MD :1955 A ge:69 Y S ex:Female Date:10/24/2024 Address:[address] [place], [place] [id number] Pcp:CHUN HAIDER Subjective: * Chief Complaints: * 1 . LR MEDICARE PE. 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 S he has been in state of good health since her last exam. She has the following concerns: S he has received the [employer] Covid-19 vaccine. R elationship status: *partnered for 22 years. They live together and she feels safe at home. She is not sexually active - he has ED. Sexual partner(s): male. She does not wish to have STI testing. S he does *not report vaginal dryness. She does not have hot flashes/night sweats. T he patient has not had an abnormal pap smear within the last 5 years. She had a colposcopy in the early 1989's, but no other abnormal paps. Her most recent pap smear was a few years ago with Dr Sandoval. Paps are no longer indicated. S he has not been diagnosed with breast cancer. She does have a family history of breast cancer - her sister. Her mother had ovarian cancer in her 80's. Her last mammogram was *11/2021 - at [facility]. She was told she has dense breast tissue. S he does *not have a family history of colon cancer. She a has had a colonoscopy. The last colonoscopy was 07/15/17. T he patient does* exercise. She exercises in good weather by walking. * ROS: A nnual Behavioral Health Specialist Exam ROS: Bowel habit changes d enies. B ladder symptoms d enies. V aginal discharge, unusual d enies. V aginal itch or odor d enies. w eight or appetite changes d enies. C hest pains, SOB d enies. d epression d enies.? B reast: Denies B reast lump. D enies N ipple discharge.? H ematology: Denies S wollen glands. S kin: Patient denies c hanging moles. P sychiatric: Denies A nxiety. * Medical History: * Behavioral Health Specialist History: G ravida/ Para 4 /4. S exual activity n ot currently sexually active. L ast Pap Smear: Y EARS AGO-DR. SANDOVAL. M ammogram: [facility]. L MP and menses m enopause. H istory of STD's: n one. M enarche 1 1. C olonoscopy . B one Density: . * OB History: T otal pregnancies 4 . T otal living children 4 . P regnancy # 1: n ormal spontaneous vaginal delivery (), 1976, Chente, 7.5lbs, no complications. P regnancy # 2: n ormal spontaneous vaginal delivery (), 1981, [place], 8lb 2oz, no complications. P regnancy # 3 n ormal spontaneous vaginal delivery (), 1984, Usman, 7.5lbs, no complications. P regnancy # 4: n ormal spontaneous vaginal delivery (), 1987, [place], 7.5lb, no complications. Objective: * Vitals: * Examination: G eneral Examination: GENERAL APPEARANCE: i n no acute distress, well developed, well nourished, hand rug braider present in room. HEAD: n ormocephalic, atraumatic. NECK/THYROID: n aleena supple, full range of motion, thyroid normal. LYMPH NODES: n o axillary or supraclavicular adenopathy.? SKIN: normal, good turgor, no rashes, no suspicious lesions. BREASTS: normal, no dimpling, no discharge, no drainage, no masses palpable bilaterally, nontender. ABDOMEN: soft, non-tender, non distended without masses or hepatosplenomegay. RECTAL: normal tone, no masses palpable. BACK: no costovertebral angle tenderness. FEMALE GENITOURINARY: V ulva without lesions or masses, vagina pink without abnormal discharge, lesions or masses, cervix appears normal and is not tender to palpation, uterus is normal size, mobile, nontender and anteverted, ovaries are not palpable. NEUROLOGIC: alert and oriented, gait normal. PSYCH: alert, oriented, cognitive function intact, cooperative with exam, good eye contact, mood/affect full range, speech clear. Assessment: * Assessment: 1. E ncounter for gynecological examination (general) (routine) without abnormal findings - Z01.419 (Primary) 2 . E ncounter for screening mammogram for malignant neoplasm of breast - Z12.31 Plan: * Treatment: 2. E ncounter for screening mammogram for malignant neoplasm of breast I maging: MM Digital Screening Mammogram 3D * Follow Up: 1 Year (Reason: Yearly Behavioral Health Specialist Exam) * Images: Billing Information: * Visit Code: 88891 Preventive Care Est Pt. Age 65 and over. 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 She has been in state of good health since her last exam. She has the following concerns: She has received the Pf[employer] Covid-19 vaccine. Relationship status: *partnered for 22 years. They live together and she feels safe at home. She is not sexually active - he has ED. Sexual partner(s): male. She does not wish to have STI testing. She does *not report vaginal dryness. She does not have hot flashes/night sweats. The patient has not had an abnormal pap smear within the last 5 years. She had a colposcopy in the early , but no other abnormal paps. Her most recent pap smear was a few years ago with Dr Sandoval. Paps are no longer indicated. She has not been diagnosed with breast cancer. She does have a family history of breast cancer - her sister. Her mother had ovarian cancer in her 80's. Her last mammogram was *11/2021 - at [facility]. She was told she has dense breast tissue. She does *not have a family history of colon cancer. She a has had a colonoscopy. The last colonoscopy was 07/15/17. The patient does* exercise. She exercises in good weather by walking. Examination Category Sub-Category Detail Notes Category Not es General Examination GENERAL APPEARANCE: in no ac taj distress, well developed, well nourished, hand rug braider present in room HEAD: normocephalic, atrau matic NECK/THYROID: neck supple, full ra nge of motion, thyroid normal ABDOMEN: soft, non-tender, no n distended without masses or hepatosplenomegay NEUROLOGIC: alert and oriented, gait normal SKIN: normal, good turgor, no rashes, no suspicious lesions BACK: no costovertebral an gle tenderness BREASTS: normal, no dimpling, no discharge, no drainage, no masses palpable bilaterally, nontender LYMPH NODES: no axillary or supra clavicular adenopathy RECTAL: normal tone, no mass es palpable PSYCH: alert, oriented, cog nitive function intact, cooperative with exam, good eye contact, mood/affect full range, speech clear FEMALE GENITOURINARY: Vulva without lesi ons or masses, vagina pink without abnormal discharge, lesions or masses, cervix appears normal and is not tender to palpation, uterus is normal size, mobile, nontender and anteverted, ovaries are not palpable
--- OUTSIDE RECORDS SUMMARY | 2025-03-22 12:15 | XMS_ITS ---
Author Organization Godfrey Conte III, MD Address [address] [place] [address] [address] [facility] [facility] [place] [address] Care Team Providers Care Licensed Prosthetist/Orthotist Name Role Phone DENNIS NEGRON Primary Care Provider Unavailab Dr. Godfrey Cam III Unavailable REASON FOR VISIT Follow Up Social History Sex Assigned At : Social History Observation Description Sex Assigned At Female Encounters Encounter Location Date Provider Diagnosis Godfrey Conte III, MD [address] [place] [address] [place] [address] 03/22/2025 Godfrey Conte Plan Of Treatment Next Appt Details Provider Name:Godfrey Conte , 11/27/2025 10:00:00 AM, [address] [place] [address] [place], [address], Progress Notes * Lenora DE SOUZA ADOB:1955 (70 yo F)Acc No.[id number]:03/22/2025 Progress Notes Patient: Traci KATHILenora Lizabeth Provider: Jayshree Conte MD :1955 A ge:70 Y S ex:Female Date:03/22/2025 Address:[address] [place], [place] [address]AL[place] [id number] Pcp:DENNIS NEGRON Subjective: * Chief Complaints: * [...] * Provider: Jayshree Conte MD Date: 0 03/22/2025 Generated for Laya ruano/Dann/Charles on: 10/21/2024 10:32 AM EST
--- OUTSIDE RECORDS SUMMARY | 2025-05-22 05:00 | XMS_ITS ---
Author Organization Godfrey Conte III, MD Address [address] [place] [address] Care Team Providers Care Managing Consultant Name Role Phone DENNIS NEGRON Primary Care Provider Unavailab Dr. Godfrey Cam III Unavailable Allergies Allergen (clinical drug ingredient) Drug/Non Drug Allergy documented on EMR Reaction Allergy Type Onset Date Status epinephrine Epinephrine Unknown Drug Allergy Act lorenza REASON FOR VISIT Chronic lymphocytic leukemia, Hyperlipidemia, Diabetes, Problem Medications Medication SIG (Take, Route, Frequency, Duration) Notes Start Date End Date Status hydroCHLOROthiazide 12.5 MG 1 capsule in the morning Orally Once a day Active Vitamin D 1000 UNIT 1 tablet Orally Once a day Active Calcium 600 MG 1 tablet with food Orally Twice a day Active Aspirin 81 MG 1 tablet Orally Once a day Active Centrum Silver Adult 50+ Orally Active Meclizine HCl 25 MG 1 tablet as needed Orally three times a day 09/03/2020 Active Simvastatin 20 MG 1 tablet in the even ing Orally Once a day Active Social History Tobacco Use: Social History Observation Description Date Details (start date - stop date) Never Smoker NA - NA Sex Assigned At : Social History Observation Description Sex Assigned At Female Tobacco Use/Smoking Question Answer Notes Patient is a nonsmoker Additional Findings: Tobacco Non-User Aggressive non-smoker Vital Signs Temperature 97.7 degrees Fahrenheit 05/22/20 25 Blood pressure systolic 131 mm Hg 05/22/20 25 Blood pressure diastolic 71 mm Hg 025 Heart Rate 63 /min 05/22/2025 Height 62 in 05/22/2025 Weight 171 lbs 05/22/2025 BMI 31.27 kg/m2 05/22/2025 Encounters Encounter Location Date Provider Diagnosis Godfrey Conte III, MD [address] [place] [address] [place] [address] 05/22/2025 Godfrey Conte Chronic lymphocytic leukemia C91.10 ; Essential hypertension I10 ; Hyperlipidemia E78.5 and Diabetes E11.9 Assessments Encounter Date Diagnosis (ICD Code) Assessment Notes Treat ment Notes Treatment Clinical Notes 05/22/2025 Chronic lymphocytic leukemia (ICD-10 - C91.10) Her chronic lymphocytic leukemia remains early Stage and stable. Observation alone may continue. There is no adenopathy or splenomegaly. Her constitutional B symptoms. 05/22/2025 Essential hypertension (ICD-10 - I10) Her blood pressure is currently stable and no change in her regimen was necessary. 05/22/2025 Hyperlipidemia (ICD-10 - E78.5) Her lipids are stable and no change in her regimen was necessary. 05/22/2025 Diabetes (ICD-10 - E11.9) She likely need medication. She will followup with Dr. Negron. Plan Of Treatment Medication Medication Name Sig Start Date Stop Date Notes hydroCHLOROthiazide 12.5 MG 1 capsule in the morning Orally Once a day Vitamin D 1000 UNIT 1 tablet Orally Once a day Calcium 600 MG 1 tablet with food O rally Twice a day Aspirin 81 MG 1 tablet Orally Once a day Centrum Silver Adult 50+ Orally Meclizine HCl 25 MG 1 tablet as needed O rally three times a day 09/03/2020 Simvastatin 20 MG 1 tablet in the even ing Orally Once a day Pending Test Test Name Order Date PROFILE, FASTING (COMPREHENSIVE METABOLI C) 05/22/2025 LDH 05/22/2025 CBC w DIFF 05/22/2025 Lipid Panel 05/22/2025 Beta-2 Microglobulin, Serum 05/22/2025 Hemoglobin A1c 05/22/2025 Next Appt Details Follow Up: 6 Months, Reason: ov review labs Provider Name:Godfrey Conte , 11/27/2025 10:00:00 AM, [address] [place] [address] [address] [address], [place], [address], Progress Notes * Lenora DE SOUZA ADOB:1955 (70 yo F)Acc No.[id number]:05/22/2025 Progress Notes Patient: Lenora SPEARS Provider: Jayshree Conte MD :1955 A ge:70 Y S ex:Female Date:05/22/2025 Address:[address] [place] [address] [place], [place] Chang [id number] Pcp:DENNIS NEGRON Subjective: * Chief Complaints: * C hronic lymphocytic leukemiaHyperlipidemiaDiabetesProblem * HPI: C OVID-19 Screening: Questions H ave you had any new onset fever, chills, cough, congestion, sore throat, shortness of breath, muscle aches? N o T here was no adenopathy or splenomegaly. On today's examination. The remainder of her CBC was normal. Observation was continued. S he returns for management of her chronic lymphocytic leukemia. She saw Dr. Negron last week and he is aware of the elevated glucose level. He has scheduled additional bloodwork likely a hemoglobin A1c. He is going to let me know how that goes. Her CBC shows slight improvement in the blood work but no significant change.Observation was continued. * ROS: G eneral/Constitutional: pain o nly normal aches and pains. C hills d enies.?Fatigue a dmits. F ever d enies. E NT: Decreased hearing d enies. R espiratory: Cough d enies. C ardiovascular: Chest pain with exertion d enies. D yspnea on exertion?denies. S hortness of breath d enies. G astrointestinal: Constipation a dmits. D ecreased appetite d enies.?Diarrhea d enies. H eartburn d enies. N ausea d enies. R ectal bleeding?denies. V omiting d enies. H ematology: bruising d enies. p etechiae d enies. S wollen glands n one have been noted. G enitourinary: Frequent urination d enies. M usculoskeletal: Muscle aches d enies. P ainful joints d enies. S ciatica d enies. W eakness d enies. S kin: Itching d enies. R lenka d enies. S kin lesion(s)?denies. N eurologic: Difficulty speaking d enies. D izziness d enies.?Headache d enies. L ow back pain d enies. P sychiatric: Depressed mood A nxiety. * Medical History: * Surgical History: G 4P4 T&A No history * Hospitalization/Major Diagno stic Procedure: p regnancies No history * Family History: F ather: 67 yrs, liver cancer at 67, malaria, diagnosed with HTN. M other: 84 yrs, ovarian cancer, aodm,, diagnosed with DM. C hildren: alive, diagnosed with DM. S juan david: alive 64 yrs. 2 sister(s) . 3 son(s) , 1 daughter(s) . . One of her sisters was diagnosed with Alzheimer's disease at age 59. Two of her sons has juvenile diabetes. Her father's mother had cancer of the cervix. Her sister has developed invasive ductal carcinoma the breast at the age of 65 and 2021. She is not aware of any family history of mental illness or substance use disorder or addiction. Mother had type 2 diabetes. * Social History: T obacco Use: T obacco Use/Smoking P atchristian is a n onsmoker A dditional Findings: Tobacco Non-User A ggressive non-smoker S he was born at [facility] in [place]. She is and has 3 sons and 1 daughter. 2 of her sons have diabetes. She has one grandchild who lives in [place]. 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 Centrum Silver Adult 50+ Tablet Orally Meclizine HCl 25 MG Tablet 1 tablet as needed Orally three times a day hydroCHLOROthiazide 12.5 MG Capsule 1 capsule in [...] Centrum Silver Adult 50+ Tablet Orally Taking Meclizine HCl 25 MG Tablet 1 tablet as needed Orally three times a day Taking hydroCHLOROthiazide 12.5 MG Capsule 1 capsule in the morning Orally Once a day DiscontinuedAlendronate Sodium Medication List reviewed and reconciled with the patientDiscontinued Alendronate Sodium Medication List reviewed and reconciled with the patient * Allergies: E pinephrine: Side Effectsno[Allergies Verified] Objective: * Vitals: H t: 62, Wt:171, BMI:31.27, BP:131/71, HR:63, Temp:97.7, Wt-k.56. * Examination: G eneral Examination: GENERAL APPEARANCE: p leasant, well nourished, well developed, in no acute distress, anxious o bese: woman. HEAD: a traumatic, normocephalic. EYES: e [...] LUNGS: c lear to auscultation . BREASTS: no masses palpable bilaterally. ABDOMEN: b owel sounds normal, no ascites, no organomegaly, no mass: centripital obesity. RECTAL EXAM: n ot examined. MUSCULOSKELETAL: e xtremities unremarkable, no clubbing, cyanosis or edema. PERIPHERAL PULSES: n ormal. NEUROLOGIC: a lert and oriented, cranial nerves 2-12 grossly intact, deep tendon reflexes 2+ symmetrical, motor strength normal upper and lower extremities, sensory exam intact. PSYCH: a lert, oriented: anxious appearing. ? Assessment: * Assessment: 1. C hronic lymphocytic leukemia - C91.10 (Primary) N otes :Her chronic lymphocytic leukemia remains early Stage and stable. Observation alone may continue. There is no adenopathy or splenomegaly. Her constitutional B symptoms. 2 . E ssential hypertension - I10 N otes :Her blood pressure is currently stable and no change in her regimen was necessary. 3 . H yperlipidemia - E78.5 N otes :Her lipids are stable and no change in her regimen was necessary. 4 . D iabetes - E11.9 N otes :She likely need medication. She will followup with Dr. Negron. Plan: * Treatment: 2. E ssential hypertension L AB: PROFILE, FASTING (COMPREHENSIVE METABOLIC) L AB: LDH L AB: CBC w DIFF L AB: Lipid Panel L AB: Beta-2 Microglobulin, Serum L AB: Hemoglobin A1c 3. H yperlipidemia L AB: PROFILE, FASTING (COMPREHENSIVE METABOLIC) L AB: LDH L AB: CBC w DIFF L AB: Lipid Panel L AB: Beta-2 Microglobulin, Serum L AB: Hemoglobin A1c 4. D iabetes L AB: PROFILE, FASTING (COMPREHENSIVE METABOLIC) L AB: LDH L AB: CBC w DIFF L AB: Lipid Panel L AB: Beta-2 Microglobulin, Serum L AB: Hemoglobin A1c * Procedure Codes: * Preventive Medicine: Counseling: C are goal follow-up plan: Counseling for abnormal BMI given Y es Above Normal BMI Follow-up D ietary management education, guidance, and counseling, Dietary needs education, Exercise promotion: strength training, Exercise promotion: stretching, Feeding regime, Giving encouragement to exercise, Lifestyle education regarding diet, Nutrition / feeding management, Nutrition therapy, Prescribed activity/exercise education, Prescribed diet education, Prescribed dietary intake, Special diet education, Weight monitoring , Intervention, Order not done: Medical or Other reason not done DM Care Plan: P atient Lifestyle Goals P atient wants to be able to manage diabetes without too much effort. T reatment Goals H bA1C < 7.0, Blood Sugars less than < 115. B arriers n o barriers. S elf-Managment Goals W ork on weight loss, with a goal of losing 1 lb per week. * Follow Up: 6 Months (Reason: ov review labs) * Images: * Sign off status: Completed true * Provider: Jayshree Conte MD Date: 0 05/22/2025 Generated for Laya ruano/Dann/Naomyitting on: 10/21/2024 10:32 AM EST History and Physical Notes * HPI (History of Present Illness) Category Sub-Category Detail Notes COVID-19 Screening Questions Have you had any new onset fever, chills, cough, congestion, sore throat, shortness of breath, muscle aches?: No Examination Category Sub-Category Detail Notes General Examination GENERAL APPEARANCE: pleasant , well nourished, well developed, in no acute distress, anxious obese: woman HEAD: atraumatic, normocep halic EYES: eomi, perrla, anicte lenny, conjugate EARS: normal NOSE: septum intact NECK/THYROID: no jugular venous di stention, no carotid bruit, thyroid normal HEART: no clicks, gallops, murmurs, or rubs, regular rhythm, S1, S2 normal, no s3, or vascular bruits LUNGS: clear to auscultatio n ABDOMEN: bowel sounds normal, no ascites, no organomegaly, no mass: centripital obesity NEUROLOGIC: alert and oriented, cranial nerves 2-12 grossly intact, deep tendon reflexes 2+ symmetrical, motor strength normal upper and lower extremities, sensory exam intact SKIN: no suspicious lesion s, anicteric PERIPHERAL PULSES: normal BREASTS: no masses palpable b ilaterally MUSCULOSKELETAL: extremities unremark able, no clubbing, cyanosis or edema LYMPH NODES: no enlarged lymph no lydia,spleen normal RECTAL EXAM: not examined PSYCH: alert, oriented: anx ious appearing ORAL CAVITY: normal, unremarkable
--- OUTSIDE RECORDS SUMMARY | 2025-05-23 08:08 | XMS_ITS ---
Author Organization Godfrey Conte III, MD Address [address] [place] [address] Care Team Providers Care Wood Grainer Name Role Phone DENNIS NEGRON Primary Care Provider Unavailab Dr. Godfrey Cam III Unavailable REASON FOR VISIT copy of recent labs Social History Sex Assigned At : Social History Observation Description Sex Assigned At Female Encounters Encounter Location Date Provider Diagnosis Godfrey Conte III, MD [address] [place] [address] [place] [address] 05/23/2025 Godfrey Conte Plan Of Treatment Next Appt Details Provider Name:Godfrey Conte , 11/27/2025 10:00:00 AM, [address] [place] [address] [address], [place], [address], Progress Notes * Lenora DE SOUZA ADOB:1955 (70 yo F)Acc No.[id number]:05/23/2025 Patient: Lenora SPEARS :1955 A ge:70 Y S ex:Female Address:[address] [place] [address], [place], [address] * true * Date: Generated for Rachellei bindu/Ionag/eTransmitting on: 10/21/2024 10:31 AM EST
--- OUTSIDE RECORDS SUMMARY | 2025-08-21 10:33 | XMS_ITS | Patient Health Record ---
Author Organization Godfrey Conte III, MD Address [address] [place] [address] Care Team Providers Care Web Press Roll Tender Name Role Phone DENNIS NEGRON Primary Care Provider Unavailab Dr. Godfrey Cam III Unavailable [phone] Allergies Allergen (clinical drug ingredient) Drug/Non Drug Allergy documented on EMR Reaction Allergy Type Onset Date Status epinephrine Epinephrine Unknown Drug Allergy Act lorenza Results Component Value Reference Range Notes Complete Blood Count Auto Di ff Reviewed date:09/15/2024 07:38:09 AM Interpretation: Performing Lab:[facility], [address] [place] [phone] Notes/Report: White Blood Count 23.4 4.8-10.8 X10*3/uL [...] 0.0-0.012 X10*3/uL CORRECTED REPORT CORRECTED REPORT Comprehensive [place]. Panel Fa st Reviewed date:09/15/2024 07:38:09 AM Interpretation: Performing Lab:[facility], [address] [place] [phone] Notes/Report: Sodium 141 135-145 mmol/L Potassium 4.1 [...] Panel Reviewed date:09/15/2024 07:38:09 AM Interpretation: Performing Lab:[facility], [address] [place] [phone] Notes/Report: Triglycerides 133 <150 mg/dL Desirable Triglyceride: [...] REVIEW Reviewed date:09/15/2024 07:38:09 AM Interpretation: Performing Lab:[facility], [address] [place] [phone] Notes/Report: SLIDE REVIEW VERIFIED Complete Blood Count Auto Di ff Reviewed date:05/19/2025 02:16:04 PM Interpretation: Performing Lab:[facility], [address] [place] [phone] Notes/Report: White Blood Count 22.3 4.8-10.8 X10*3/uL [...] 0.0-0.012 X10*3/uL CORRECTED REPORT CORRECTED REPORT Comprehensive [place]. Panel Fa st Reviewed date:05/19/2025 02:16:04 PM Interpretation: Performing Lab:[facility], [address] [place] [phone] Notes/Report: Sodium 142 135-145 mmol/L Potassium 4.2 [...] Panel Reviewed date:05/19/2025 02:16:04 PM Interpretation: Performing Lab:[facility], [address] [place] [phone] Notes/Report: Triglycerides 120 <150 mg/dL Desirable Triglyceride: [...] Serum Reviewed date:05/19/2025 02:16:04 PM Interpretation: Performing Lab:[facility], [address] [place] [phone] Notes/Report: Beta-2 Microglobulin, Serum 1.83 < OR = 2.51 mg/L THIS TEST WAS PERFORMED AT: [facility] [address] [phone] FISH ESQUIVEL MD SLIDE REVIEW Reviewed date:05/19/2025 02:16:04 PM Interpretation: Performing Lab:[facility], [address] [place] [phone] Notes/Report: SLIDE REVIEW VERIFIED Reason For Referral [...] Problem Status W/U Status Risk Notes Problem 90576317 Hyperlipidemia (E78.5) Active confirmed Her lipids are stable and no change in her regimen was necessary. Problem 601824676 Overweight (E66.3) Active confirmed Her body mass index is now 31. She has gained 9 pounds I recommended she continue to lose weight at a rate of 1/2 pound per week. Problem Type II diabetes mellitus without complication (196263233) Diabetes (E11.9) Active confirmed She lik pam need medication. She will followup with Dr. Negron. Problem 81032915 Essential hypertension (I10) Active confirmed Her blood pressure is currently stable and no change in her regimen was necessary. Problem 03256040 Glaucoma (H40.9) Active confirmed She will continue her current medications without change. Problem 85591854 Chronic lymphocytic leukemia (C91.10) Active confirmed Her [...] Date Provider Diagnosis Godfrey Conte III, MD [address] [place] [address] [address] [place] [address] 09/21/2024 Godfrey Conte Chronic lymphocytic leukemia C91.10 ; Overweight E66.3 ; Essential hypertension I10 ; Hyperlipidemia E78.5 and Diabetes E11.9 Godfrey Conte III, MD [address] [place] [address] [address] [place] [address] 05/22/2025 Godfrey Conte Chronic lymphocytic leukemia C91.10 ; Essential hypertension I10 ; Hyperlipidemia E78.5 and Diabetes E11.9 Godfrey Conte III, MD [address] [place] [address] [address] [place] [address] 05/23/2025 Godfrey Conte Assessments Encounter Date Diagnosis [...] VIEW PA & LAT 06/30/2018 Lipid Panel 05/22/2025 Lipid Panel 09/21/2024 Lipid Panel 02/11/2024 Lipid Panel 09/14/2023 Beta-2 Microglobulin, Serum 05/22/2025 Hemoglobin A1c 05/22/2025 Next Appt Details Provider Name:Godfrey Chang Inés , 11/27/2025 10:00:00 AM, [address] [place] [address] [place], [place], [phone], Insurance Providers Payer Name Payer Address Payer Phone Subscriber Number Group Number Insured Name Patient Relationship to Insured Coverage Start Date Coverage End Date [facility] [address] [facility] [place] [address] [id number] Lenora De Souza Self - patient is the insured MEDICARE NGS [address] [place] [address] [id number] Lenora De Souza Self - patient is the insured Medical (General) History Medical History History ICD Code glaucoma cll/sll gestational diabetes hypertension hyperlipidemia overweight The patient's mother had type 2 diabetes . Surgical History Surgery Date(Month/Year) No history T&A Hospitalization History Reason Date(Month/Year) No history pregnancies
--- OUTSIDE RECORDS SUMMARY | 2025-08-21 10:33 | XMS_ITS | Patient Health Record ---
Author Organization [facility] Address [address] [place] [address] Care Team Providers Care Assistant Professor Of English Name Role Phone DENNIS RODRIGUEZ Primary Care Provider GUSTAVO Neri Unavailable [phone] Allergies Allergen (clinical drug ingredient) Drug/Non Drug [...] W/U Status Risk Notes Problem Age-related osteoporosis (244441538) Age-related osteoporosis without current pathological fracture (M81.0) Active confirmed Problem Essential hypertension (89512865) Essential (primary) hypertension (I10) Active confirmed Problem Chronic lymphoid leukemia, disease (44983975) 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 [facility] [address] [place] [address] 01/16/2025 GUSTAVO MCDONOUGH Encounter for gynecological examination [...] End Date [employer] [address] [place] [address] [id number] JOSTIN FAM Self - patient is the [...]
--- OUTSIDE RECORDS SUMMARY | 2025-08-21 10:33 | XMS_ITS | Encounter Summary ---
Author Organization [facility] Address [address] [place] [address] [place] [address] Phone Care Team Providers Care Superintendent Renting Managing Name Role Phone Raji Slade MD Primary Care Provider [phone] Encounter Details Date Type Department Care Team ([facility] st Contact Info) Description 06/08/2025 Transcribe Orders Virtual Department [address] [place] [address] Ted Medina PA [address] [place] [address] Abnormal LFTs (Primary Dx) Social History Tobacco [...] Primary documented in this encounter Care Teams Superintendent Renting Managing Relationship Specialty Start Date End Date Raji Slade MD [address] [place] [address] [place] [address] PCP - General Internal Medicine 09/05/19 documented as of this encounter Additional Source Comments The information contained in this document represents components of the legal health record. It is not the complete legal health record.[facility]
--- OUTSIDE RECORDS SUMMARY | 2025-08-21 10:33 | XMS_ITS | Clinical Summary ---
Author Organization [facility] Address [address] [place] [address] Phone Care Team Providers Care Data Center Architect Name Role Phone Raji Slade MD Primary Care Provider [phone] Allergies No known active allergies Medications aspirin 81 mg chewable tablet Take 81 mg by mouth daily. Active calcium carbonate-vitam in D3 1,250 mg (500 mg elemental)-400 units Tab Take 1 tablet by mouth daily. Active simvastatin (ZOCOR) 20 MG tablet Take 20 mg by mouth nightly at bedtime. Active Encounters Date Type Department Care Team Description 06/08/2025 Transcribe Orders Virtual Department [address] [place] [address] Ted Medina PA Abnormal LFTs (Primary Dx) from Last 3 Months Social History Tobacco Use Types Packs/Day Years [...] COLONOSCOPY 1998 OSTEOPOROSIS SCREENING INITIAL (ONE-TIME) 2018 INFLUENZA VACCINE (#1) 2025 , 06/04/2020, 07/26/2019, Additional history exists COVID-19 VACCINE (2 - 2024- season) 2025 12/19/2020 RSV VACCINE (1 - 1-dose 75+ [...] topic Medical Devices Not on file Insurance MEDICARE REPLACEMENT MEDICARE REPLACEMENT MEDICARE REPLACEMENT MEDICARE REPLACEMENT MEDICARE REPLACEMENT MEDICARE REPLACEMENT MEDICARE REPLACEMENT MEDICARE REPLACEMENT MEDICARE REPLACEMENT [place] [id number] Care Teams Data Center Architect Relationship Specialty Start Date End Date Raji Slade MD [address] [place] [address] [facility] [address] PCP - General Internal Medicine 09/05/19 Additional Source Comments The information contained in this document represents components of the legal health record. It is not the complete legal health record.[facility]
[2025-08-21 10:39] LABS: Microalbum/Creatinine Ratio Ur 15.7 ug/mg cr (<30)
== END 2025-08-21 09:24 | disposition home or self-care (01) ==
LOC: HO.10HDLNP 09:23
PROVIDERS: Visit Provider Physician Assistant
DX: I10 Essential (primary) hypertension (principal); E78.5 Hyperlipidemia, unspecified; M81.0 Age-related osteoporosis without current pathological fracture; F43.10 Post-traumatic stress disorder, unspecified; E11.65 Type 2 diabetes mellitus with hyperglycemia; C91.10 Chronic lymphocytic leukemia of B-cell type not having achieved remission; R74.8 Abnormal levels of other serum enzymes; E66.811 Obesity, class 1; Z79.899 Other long term (current) drug therapy; Z68.31 Body mass index [BMI] 31.0-31.9, adult
CPT/HCPCS: 82043; 82570

== ENCOUNTER 2025-08-21 09:28 | Outpatient (AMB) | payer OTHER, SELFPAY ==
--- NOTE | 2025-08-21 09:36 | MHC.PC.OV ---
Vital Signs 08/21/25 09:37 Height 5 ft 1.25 in Weight 168 lb 2 oz BMI 31.5 BP 130/70 Blood Pressure Location Lt brachial Position Sitting Pulse 80 Pulse Source Pulse Oximeter Temp 96.8 F Temp Source Temporal Artery Scan Pulse Oximetry (%) 92 Oxygen Delivery Method Room Air Intake Visit Reasons: f/u HTN/ HLD/ Fasting blood sugar elevation Intake Note: Patient is here to follow up on HTN, HLD, Fasting blood sugar elevation. 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 Required: No Caustic Preparer: Not Required per policy Accompanied by: Self / Same As Patient Allergies epinephrine (From Epifrin) Allergy (Intermediate, Verified 08/21/25 10:07) tacycardia procaine (From NOVOCAIN) Allergy (Unknown, Verified 08/21/25 10:07) TACHYCARDIA FROM NOVOCAINE Medication List - Last Reconciled 08/21/25 by Ted Medina PA-C calcium carbonate (Calcium 600) 600 mg PO DAILY cholecalciferol (vitamin D3) 50 mcg PO DAILY hydrochlorothiazide 12.5 mg PO DAILY 90 days multivitamin (Daily Multi-Vitamin tablet) 1 tab PO DAILY simvastatin 20 mg PO DAILY Tobacco use date assessed: 08/21/25 Fall risk assessment: No Falls in past year Last assessed Fall Risk: 08/21/25 Dental Screening Dental Screen Date: 12/12/24 HPI f/u HTN/ HLD/ Fasting blood sugar elevation HPI Details Patient is a 70-year-old female here today for a follow-up visit .Patient has a past medical history significant for hyperlipidemia, chronic lymphocytic leukemia, hypertension and osteoporosis. CLL : The patient has a history of chronic leukemia, which is being monitored without current symptoms. She was initially diagnosed following an eye exam approximately ten years ago. The condition is considered chronic and not life-threatening, and she is unable to donate blood or organs due to this diagnosis. Osteoporosis: The patient has been diagnosed with osteopenia, which was previously osteoporosis. Medication adjustments have reduced her risk of fractures, and she is not currently seeing a specialist for this condition. She is managing hyperlipidemia and hypertension with medication. Recent lab work indicated elevated liver enzymes, possibly due to fatty liver disease, which may be related to weight gain and medication side effects. Her cholesterol levels are within the normal range. PTSD: The patient reports a history of post-traumatic stress disorder (PTSD), exacerbated by family stressors. She has previously been on Zoloft but discontinued it due to side effects. She is considering non-pharmacological interventions and therapy for management. Type 2 diabetes: Most recent A1c is 6.5. She does admit to dietary indiscretion. She would like to work on lifestyle and dietary modifications before starting diabetic medication at this time. She is interested in speaking with the dietitian to come up with a dietary plan. .. Hyperlipidemia: Patient continues on statin therapy simvastatin 20 mg. Most recent fasting lipid panel showing borderline LDL. With her new diagnosis of type 2 diabetes we will consider increasing potency after a trial of lifestyle and dietary modifications. Goal LDL to be below 100 Laboratory Tests 09/14/24 05/15/25 08/19/25 08:24 08:40 08:07 WBC 23.4 H 22.3 H 23.3 H Fasting Glucose 152 H Hemoglobin A1c % 6.5 H AST 42 H ALT 60 H Cholesterol 192 LDL Cholesterol, C alc 100 H [facility] Medical History Incomplete right bundle branch block (RBBB) Post-menopausal Hypertension Vertigo Osteoarthritis of hands, bilateral Lymphoma Surgical History History of surgery History of colonoscopy History of bone marrow biopsy (~2016) Bilateral cataracts (~2018) History of tonsillectomy (~1953) Family History Father Liver cancer Hypertension Mother Ovarian cancer Sister Mental health disorder Social History Household Members: Significant Other Household Members Other:: Peter Housing: House Alcohol intake: never Patient Tobacco Use Status: Never used Tobacco Tobacco use type: Cigarette e-Cigarette/Vaping Use: Never Used Second Hand Smoke Exposure: No service: No Current occupational status: retired 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 Cognitive needs: No Hearing needs: No Vision needs: Yes (reading glasses) Questionnaire Thrive Questionnaire Date Thrive assessed: 12/12/24 I am a: Patient What is your living situation today?: I have a steady place to live Within the past 12 months, did the food you bought not last and you didn't have the money to get more?: Never true Within the past 12 months, did you worry whether your food would run out before you got money to buy more?: Never true Do you have trouble paying for medicines?: No Do you have trouble getting transportation to medical appointments?: No Do you have trouble paying your heating and electricity bill?: No Do you have trouble taking care of your child, family member or friend?: No Do you have trouble with day-to-day activities such as bathing, preparing meals, shopping, managing finances, etc.?: No Are you currently unemployed and looking for a job?: No Are you interested in more education?: No Please select the resources that you would like help with: None Currently or been in a relationship where the following occur: No concerns reported THRIVE Score: 0 CARTER-7 AMB Questionnaire CARTER-7 Date CARTER - 7 assessed: 05/17/25 Source: Developed by Drs. Godfrey Perry, Kim Ga, Gino Duckworth and colleagues, with an educational conchis from [employer]. Review of Systems Const Denies headache(s) Eyes Denies loss of vision ENT Denies vertigo, Denies dizziness, Denies headache(s) and Denies sore throat Card Denies chest pain, Denies leg edema and Denies lightheadedness Resp Denies cough, Denies hemoptysis and Denies wheezing GI Denies abdominal pain, Denies melena, Denies constipation, Denies diarrhea and Denies vomiting Denies urinary frequency, Denies dysuria and Denies urinary urgency Musc Denies arthralgias, Denies joint swelling, Denies numbness and Denies tingling Neuro Denies Abnormal speech present, Denies behavioral changes, Denies vertigo, Denies dizziness, Denies headache(s), Denies loss of vision, Denies memory loss, Denies numbness and Denies tingling Psych Denies anxiety, Denies behavioral changes, Denies depression, Denies memory loss and Denies panic attacks Pietro/Lymph Denies easy bleeding and Denies easy bruising Aller/Immun Denies wheezing Physical exam (Primary Care) Vital Signs: Last Vital Signs Temp 96.8 F 08/21/25 09:37 Pulse 80 08/21/25 09:37 BP 130/70 08/21/25 09:37 Pulse Ox 92 08/21/25 09:37 Oxygen Delivery Method Room Air 08/21/25 09:37 BMI result Body Mass Index 31.5 BMI Assessment/Plan discussion: High BMI High, discussed plan: lifestyle, weight reduction, dietary and physical activity Tobacco/Smoking Status: Tobacco use Status Tobacco use date assessed 08/21/25 08/21/25 09:38 Patient Tobacco Use Status Never used Tobacco 08/21/25 09:38 Tobacco use type Cigarette 08/21/25 09:38 e-Cigarette/Vaping Use Never Used 08/21/25 09:38 Thrive Assessment: Date of Thrive Assessment Date Thrive assessed 12/12/24 08/21/25 09:38 Currently or been in a relationship where the following occur: No concerns reported Const General: healthy appearing, no acute distress, alert and awake Nutritional Appearance: well nourished Orientation/consciousness: oriented to person, oriented to place and oriented to time HENMT Ears: TM's normal bilaterally General nose exam: Normal nasal mucous membranes and turbinates present Eyes Conjunctivae: conjunctivae normal Sclerae: sclerae normal Pupils: Equal, round and reactive pupils present Neck Neck: Yes no lymphadenopathy and Yes no JVD Thyroid: Thyroid normal Carotids: no bruits Resp Effort & Inspection: normal respiratory effort and not tachypneic Auscultation: no crackles, no rales, no rhonchi and no wheezes Cardio Rate: regular rate Rhythm: regular rhythm Heart sounds: no murmurs and normal S1 and S2 GI Palpation (GI): Soft to palpation, nontender, no hepatomegaly and no splenomegaly Auscultation: normal bowel sounds Skin General skin exam: no rashes or lesions noted and dry skin Neuro General: oriented to person, oriented to place and oriented to time Cranial nerves: Yes Equal, round and reactive pupils present Speech: No Abnormal speech present Gait exam (Neuro): Normal gait present Motor exam (neuro): no tremor noted Extrem Right upper extremity: full ROM Left upper extremity: full ROM Right lower extremity: full ROM; no edema Left lower extremity: full ROM; no edema Psych Mental Status: mental status grossly normal Speech and movement: Normal speech and movement present Affect: normal affect Attitude: cooperative Thought process: Normal thought process present Coding Level of Care Code Est Pt Level 4 (46065) Diagnoses Type 2 diabetes mellitus with hyperglycemia, without long-term current use of insulin E11.65 Diabetes mellitus complication status: with hyperglycemia Diabetes mellitus retirement insulin use: without long term care administrator use Post traumatic stress disorder F43.10 Hypertension, unspecified type I10 Hypertension type: unspecified Chronic lymphocytic leukemia C91.10 Hyperlipidemia, unspecified hyperlipidemia type E78.5 Hyperlipidemia type: unspecified Elevated liver enzymes R74.8 Class 1 obesity E66.811 Assessment & Plan Assessment & Plan (1) DMII (diabetes mellitus, type 2): Code(s): E11.9 - Type 2 diabetes mellitus without complications Category: Medical Qualifiers: Diabetes mellitus complication status: with hyperglycemia Diabetes mellitus long term care administrator insulin use: without long term care administrator use Qualified Code(s): E11.65 - Type 2 diabetes mellitus with hyperglycemia Plan: Patient has new onset type 2 diabetes. Most recent A1c is 6.5 and fasting blood sugar above 130. She will work on dietary and lifestyle modifications before starting antihyperglycemics. Goal A1c is to be below 6.5. Will set her up with a dietitian 2, with a dietary plan. (2) Post traumatic stress disorder: Code(s): F43.10 - Post-traumatic stress disorder, unspecified Category: Medical Plan: The patient is advised to pursue non-pharmacological interventions and therapy for PTSD management. She is considering returning to therapy for further support. (3) Hypertension: Code(s): I10 - Essential (primary) hypertension Category: Medical Qualifiers: Hypertension type: unspecified Qualified Code(s): I10 - Essential (primary) hypertension Plan: Patient's blood pressure acceptable today in office. Will continue her current antihypertensive medication with goal blood pressure to remain below 140/90 (4) Chronic lymphocytic leukemia: Code(s): C91.10 - Chronic lymphocytic leukemia of B-cell type not having achieved remission Category: Medical Plan: The patient will continue monitoring her chronic leukemia with regular follow-ups, as it is currently asymptomatic and not life-threatening. No specific treatment is required at this time. (5) Hyperlipidemia: Code(s): E78.5 - Hyperlipidemia, unspecified Category: Medical Qualifiers: Hyperlipidemia type: unspecified Qualified Code(s): E78.5 - Hyperlipidemia, unspecified Plan: The patient will continue her cholesterol medication, as her levels are within the normal range. Monitoring of liver enzymes will continue to assess for potential side effects. She will continue simvastatin 20 mg. (6) Elevated liver enzymes: Code(s): R74.8 - Abnormal levels of other serum enzymes Category: Medical Plan: The patient will have a liver ultrasound to evaluate for fatty liver disease. Dietary modifications to reduce fat intake are recommended. (7) Class 1 obesity: Code(s): E66.811 - Obesity, class 1 Category: Medical Plan: Patient does understand her BMI is over 30 will continue working on better eating habits to reduce her weight. Orders: Orders US abdomen limited Today R74.8 - Abnormal levels of other serum enzymes Complete Blood Count no Diff Today E11.65 - Type 2 diabetes mellitus with hyperglycemia Hemoglobin A1c Today E11.65 - Type 2 diabetes mellitus with hyperglycemia Comprehensive [place]. Panel Fast Today E11.65 - Type 2 diabetes mellitus with hyperglycemia Lipid Panel Today E78.5 - Hyperlipidemia, unspecified Referrals Nutrition/Dietitian Referral E11.65 - Type 2 diabetes mellitus with hyperglycemia Patient Instructions: Goal: A1c to be below 6.5, LDL to be below 100 Barriers: Adherence to physical activity and healthy eating habits
[2025-08-21 09:37] VITALS: BP 130/70; PULSE 80; TEMP 36; O2SAT 92; BMI 31.5
== END 2025-08-21 10:38 | disposition home or self-care (01) ==
LOC: HO.HMCH 09:28
PROVIDERS: PCP Physician Assistant; Visit Provider Physician Assistant
DX: E11.65 Type 2 diabetes mellitus with hyperglycemia (principal); C91.10 Chronic lymphocytic leukemia of B-cell type not having achieved remission; E66.811 Obesity, class 1; Z68.31 Body mass index [BMI] 31.0-31.9, adult; F43.10 Post-traumatic stress disorder, unspecified; I10 Essential (primary) hypertension; E78.5 Hyperlipidemia, unspecified; R74.8 Abnormal levels of other serum enzymes